=== PATIENT | female | born 1945 | race Caucasian/White ===

== ENCOUNTER 2020-02-02 08:59 | Outpatient (REF) | payer MEDICARE, SELFPAY ==
[2020-02-02 10:17] LABS: MANUAL DIFF FLAG NO
[2020-02-02 10:33] LABS: Hematocrit 42.2 % (37-47); Hemoglobin 13.5 g/dl (12.0-16.0); Imm Gran Abs Auto 0.03 X10*3/uL (0.00-0.03); Imm Gran Pct Auto 0.4 % (0.0-0.4); Lymphocytes Absolute Auto 2.5 X10*3/uL (1.2-4.9); Lymphocytes Percent Auto 35.8 % (20-40); Mean Corpuscular Hemoglobin 28.3 pg (27.0-33.0); Mean Corpuscular Volume 88.5 fL (80-98); Mean Platelet Volume 11.5 fL (9.4-12.3); Monocytes Absolute Auto 0.7 X10*3/uL (0.1-1.2); Monocytes Percent Auto 9.5 % (2-11); Neutrophils Absolute Auto 3.8 X10*3/uL (2.0-8.3); Neutrophils Percent Auto 54.3 % (45-73); Platelet Count 200 X10*3/uL (160-400); Red Blood Count 4.77 X10*6/uL (4.20-5.50); Red Cell Distribution Width 12.8 % (11.0-16.0)
[2020-02-02 11:03] LABS: Alanine Aminotransferase 32 U/L (0-31); Albumin Level 4.2 g/dL (3.5-5.0); Alkaline Phosphatase 78 U/L (39-117); Anion Gap 12 (12-20); Aspartate Amino Transferase 22 U/L (5-31); Bilirubin Total 0.3 mg/dL (0.0-1.0); Blood Urea Nitrogen 15 mg/dL (9-16); Calcium 9.2 mg/dL (8.4-10.2); Carbon Dioxide 28 mmol/L (22-29); Chloride 103 mmol/L (96-108); Cholesterol 217 mg/dL; Estimated Glomerular Filt Rate > 60; Glucose Fasting 141 mg/dL (60-99); HDL Cholesterol 43 mg/dL; LDL Cholesterol Calculated 132 mg/dl; Potassium 4.2 mmol/l (3.3-5.1); Sodium 139 mmol/L (135-145); Total Protein 6.8 g/dL (6.5-8.0); Triglycerides 210 mg/dL
[2020-02-02 11:24] LABS: Folate 11.9 ng/mL (> or = 4.0); Vitamin B12 912 pg/mL (200-900)
== END 2020-02-02 09:00 | disposition home or self-care (01) ==
LOC: HO.LAB 08:59
PROVIDERS: PCP Internal Medicine; Visit Provider Internal Medicine
DX: E53.8 Deficiency of other specified B group vitamins (principal); E11.9 Type 2 diabetes mellitus without complications; E78.00 Pure hypercholesterolemia, unspecified
CPT/HCPCS: 36415; 80053; 80061; 82607; 82746; 85025

== ENCOUNTER → 2020-06-06 10:51 | Outpatient (BNVA) | payer MEDICARE, SELFPAY | PROVIDERS: PCP Internal Medicine; Visit Provider Anesthesiology | DX: M47.816 Spondylosis without myelopathy or radiculopathy, lumbar region (principal); M54.5 Low back pain | CPT/HCPCS: Q3014 ==

== ENCOUNTER 2020-06-13 10:44 | Outpatient (REF) | payer MEDICARE, SELFPAY ==
--- NOTE | ~2020-06-13 | XR_ITS ---
EXAMINATION: XR KNEE LT 3V, XR LUMBAR SPINE 2-3 V, XR HIP LT MIN 2V, XR FOOT LT MIN 3V CLINICAL INFORMATION: Pain in left knee. Pain in left hip. Pain in left foot. Low back pain COMPARISON: 11/30/2018. 09/29/2018 TECHNIQUE: AP, lateral, and oblique views of the left foot. AP and frog-leg lateral views of the left hip. AP, lateral, and sunrise views left knee. AP, lateral, and coned-down lateral views of the lumbar spine. FINDINGS: There is convex right lumbar scoliosis with apex at T12-L1. Normal sagittal alignment. There is multilevel degenerative disc disease with endplate sclerosis and anterior osteophytosis at several levels in the lower thoracic spine, most notable at L4-L5 in the lumbar spine. There is lower lumbar facet arthropathy severe at L4-L5 and L5-S1. No compression fracture seen. No left hip or pelvic fracture seen. There are well-corticated ossific densities adjacent the left greater trochanter which may reflect calcific tendinitis/bursitis. Left hip joint space maintained. There is medial and lateral compartment chondrocalcinosis of the left knee. Mild medial compartment joint space narrowing. No fracture, dislocation, or joint effusion. Mild lateral patellar osteophytosis. Mild hallux valgus of the left foot. Large plantar calcaneal osteophyte is present. No fracture or dislocation. XR/XR knee LT 3V IMPRESSION: No acute osseous abnormality of the lumbar spine, left hip, left knee, or left foot. Degenerative changes as described above.
--- NOTE | ~2020-06-13 | XR_ITS ---
EXAMINATION: XR KNEE LT 3V, XR LUMBAR SPINE 2-3 V, XR HIP LT MIN 2V, XR FOOT LT MIN 3V CLINICAL INFORMATION: Pain in left knee. Pain in left hip. Pain in left foot. Low back pain COMPARISON: 11/30/2018. 09/29/2018 TECHNIQUE: AP, lateral, and oblique views of the left foot. AP and frog-leg lateral views of the left hip. AP, lateral, and sunrise views left knee. AP, lateral, and coned-down lateral views of the lumbar spine. FINDINGS: There is convex right lumbar scoliosis with apex at T12-L1. Normal sagittal alignment. There is multilevel degenerative disc disease with endplate sclerosis and anterior osteophytosis at several levels in the lower thoracic spine, most notable at L4-L5 in the lumbar spine. There is lower lumbar facet arthropathy severe at L4-L5 and L5-S1. No compression fracture seen. No left hip or pelvic fracture seen. There are well-corticated ossific densities adjacent the left greater trochanter which may reflect calcific tendinitis/bursitis. Left hip joint space maintained. There is medial and lateral compartment chondrocalcinosis of the left knee. Mild medial compartment joint space narrowing. No fracture, dislocation, or joint effusion. Mild lateral patellar osteophytosis. Mild hallux valgus of the left foot. Large plantar calcaneal osteophyte is present. No fracture or dislocation. XR/XR foot LT min 3V IMPRESSION: No acute osseous abnormality of the lumbar spine, left hip, left knee, or left foot. Degenerative changes as described above.
--- NOTE | ~2020-06-13 | XR_ITS ---
EXAMINATION: XR KNEE LT 3V, XR LUMBAR SPINE 2-3 V, XR HIP LT MIN 2V, XR FOOT LT MIN 3V CLINICAL INFORMATION: Pain in left knee. Pain in left hip. Pain in left foot. Low back pain COMPARISON: 11/30/2018. 09/29/2018 TECHNIQUE: AP, lateral, and oblique views of the left foot. AP and frog-leg lateral views of the left hip. AP, lateral, and sunrise views left knee. AP, lateral, and coned-down lateral views of the lumbar spine. FINDINGS: There is convex right lumbar scoliosis with apex at T12-L1. Normal sagittal alignment. There is multilevel degenerative disc disease with endplate sclerosis and anterior osteophytosis at several levels in the lower thoracic spine, most notable at L4-L5 in the lumbar spine. There is lower lumbar facet arthropathy severe at L4-L5 and L5-S1. No compression fracture seen. No left hip or pelvic fracture seen. There are well-corticated ossific densities adjacent the left greater trochanter which may reflect calcific tendinitis/bursitis. Left hip joint space maintained. There is medial and lateral compartment chondrocalcinosis of the left knee. Mild medial compartment joint space narrowing. No fracture, dislocation, or joint effusion. Mild lateral patellar osteophytosis. Mild hallux valgus of the left foot. Large plantar calcaneal osteophyte is present. No fracture or dislocation. XR/XR hip LT min 2V IMPRESSION: No acute osseous abnormality of the lumbar spine, left hip, left knee, or left foot. Degenerative changes as described above.
--- NOTE | ~2020-06-13 | XR_ITS ---
EXAMINATION: XR KNEE LT 3V, XR LUMBAR SPINE 2-3 V, XR HIP LT MIN 2V, XR FOOT LT MIN 3V CLINICAL INFORMATION: Pain in left knee. Pain in left hip. Pain in left foot. Low back pain COMPARISON: 11/30/2018. 09/29/2018 TECHNIQUE: AP, lateral, and oblique views of the left foot. AP and frog-leg lateral views of the left hip. AP, lateral, and sunrise views left knee. AP, lateral, and coned-down lateral views of the lumbar spine. FINDINGS: There is convex right lumbar scoliosis with apex at T12-L1. Normal sagittal alignment. There is multilevel degenerative disc disease with endplate sclerosis and anterior osteophytosis at several levels in the lower thoracic spine, most notable at L4-L5 in the lumbar spine. There is lower lumbar facet arthropathy severe at L4-L5 and L5-S1. No compression fracture seen. No left hip or pelvic fracture seen. There are well-corticated ossific densities adjacent the left greater trochanter which may reflect calcific tendinitis/bursitis. Left hip joint space maintained. There is medial and lateral compartment chondrocalcinosis of the left knee. Mild medial compartment joint space narrowing. No fracture, dislocation, or joint effusion. Mild lateral patellar osteophytosis. Mild hallux valgus of the left foot. Large plantar calcaneal osteophyte is present. No fracture or dislocation. XR/XR lumbar spine 2-3V IMPRESSION: No acute osseous abnormality of the lumbar spine, left hip, left knee, or left foot. Degenerative changes as described above.
[2020-06-13 12:26] LABS: Creatinine Urine 114.76 mg/dL; Microalbum/Creatinine Ratio Ur 103.6 ug/mg cr
[2020-06-13 12:30] LABS: Alanine Aminotransferase 56 U/L (0-31); Albumin Level 4.6 g/dL (3.5-5.0); Alkaline Phosphatase 89 U/L (39-117); Anion Gap 15 (12-20); Aspartate Amino Transferase 28 U/L (5-31); Bilirubin Total 0.4 mg/dL (0.0-1.0); Blood Urea Nitrogen 15 mg/dL (9-16); Calcium 9.8 mg/dL (8.4-10.2); Carbon Dioxide 26 mmol/L (22-29); Chloride 102 mmol/L (96-108); Cholesterol 220 mg/dL; Estimated Glomerular Filt Rate > 60; Glucose Fasting 214 mg/dL (60-99); HDL Cholesterol 45 mg/dL; LDL Cholesterol Calculated 134 mg/dl; Potassium 4.5 mmol/L (3.3-5.1); Sodium 138 mmol/L (135-145); Total Protein 7.3 g/dL (6.5-8.0); Triglycerides 208 mg/dL
[2020-06-18 15:07] LABS: Vitamin D 25-OH, D2 5 ng/mL; Vitamin D 25-OH, D3 36 ng/mL; Vitamin D 25-OH, Total 41 ng/mL (30-100)
== END 2020-06-13 10:45 | disposition home or self-care (01) ==
LOC: HO.LAB 10:44
PROVIDERS: PCP Internal Medicine; Visit Provider Internal Medicine
DX: E11.9 Type 2 diabetes mellitus without complications (principal); E78.5 Hyperlipidemia, unspecified; E55.9 Vitamin D deficiency, unspecified; M25.562 Pain in left knee; M54.5 Low back pain; M25.552 Pain in left hip; M79.672 Pain in left foot
CPT/HCPCS: 36415; 72100; 73502; 73562; 73630; 80053; 80061; 82043; 82306

== ENCOUNTER → 2020-06-25 12:03 | Outpatient (BNVA) | payer MEDICARE, SELFPAY | PROVIDERS: PCP Internal Medicine; Visit Provider Orthopaedic Surgery | DX: Z13.89 Encounter for screening for other disorder (principal) | CPT/HCPCS: 99212 ==

== ENCOUNTER 2020-07-02 09:25 | Outpatient (REF) | payer OTHER, SELFPAY ==
[2020-07-02 16:57] LABS: CT PCR NOT DETECTED (Not Detect.); NG PCR NOT DETECTED (Not Detect.)
[2020-07-03 09:04] LABS: BV Int Neg Control Negative (Negative); BV Int Pos Control Positive (Positive)
== END 2020-07-02 09:26 | disposition home or self-care (01) ==
LOC: HO.LAB 09:25
PROVIDERS: PCP Internal Medicine; Visit Provider Obstetrics & Gynecology
DX: N89.8 Other specified noninflammatory disorders of vagina (principal); R10.2 Pelvic and perineal pain
CPT/HCPCS: 87480; 87491; 87510; 87591; 87660; 99212

== ENCOUNTER 2020-08-07 12:00 | Outpatient (RCR) | payer OTHER, SELFPAY ==
--- NOTE | 2020-07-17 18:10 | MHC.PT.EP ---
[facility] [place] Office [place] Office [place] Office [address] Patt Zavala [address] [phone] F: [phone] F: [phone] F: [phone] F: [phone] Physical Therapy Plan of Care Date of Evaluation: 07/17/20 Date of Surgery: N/A Diagnosis: unsteadiness on feet Assessment: pt demonstrates within functional limits lower extremity strength and static balance scores. She is at the cut-off for her age and sex in regards to her sit to stand testing. pt's reported dizziness does not sound consistent w/ BPPV. She was most challenged with eyes closed and standing on foam conditions for static balance indicating impaired proprioception and potential vestibular hypofunctioning. pt presents to physical therapy with pain, decreased strength, impaired functional mobility, impaired cardiorespiratory endurance, impaired postural awareness, and gait deviations. pt is a good candidate for skilled PT due to age, potential remediation of impairments, typical disease/condition progression and prognosis, comorbidities, and motivation. pt would benefit from tailored strengthening and stretching exercise program, functional training, gait training, postural re-training, neuromuscular re-education, modalities as needed for pain, equipment safety demonstration. Frequency and Duration: The patient will be seen 2x/wk for 5 wks Short Term Goals: pt will be I w/ HEP to promote self-management of condition. pt will improve R quad strength by 1 MMT grade to promote ease in ascending/descending stairs to access mailbox. Mcc Goals: pt will improve 5xSTS score by 2.3 seconds to reach MCID and reduce fall risk. pt will report a statistically significant improvement in self-reported outcome measure, LEFI, to reduce caregiver burden and promote pt independence. Treatment Plan: Modalities to reduce pain, spasms and effusion. Manual therapy to restore motion and function. Therapeutic exercise to improve strength and flexibility. Neuromuscular re-education for posture and balance. Therapeutic activities to return to functional activities of daily living. Electronically signed by: Namrata Kamara PT, DPT Please sign and return to therapist. Thank you for your referral.
--- NOTE | 2020-08-13 13:53 | MHC.PT.DC ---
[facility] [place] Office [place] Office [place] Office [address] Patt Zavala 140 [facility] [phone] F: [phone] F: [phone] F: [phone] F: [phone] Physical Therapy Discharge Report Diagnosis: unsteadiness on feet Date of Surgery: N/A Date of Evaluation: 07/17/20 Date of Discharge: 08/13/20 Treatments to Date: 2 Cancellations to Date: 3 No Shows to Date: 1 Discharge Status: Patient Elected to Stop Discharge Summary: The patient's daughter called to discharge the patient from physical therapy as she states she is too much pain after her therapy visits. She has only attended two visits since her initial evaluation. She would inconsistently report which part of her body was painful and was not motivated to participate. She is discharged from this physical therapy plan of care at this time per her request. Electronically signed by: Namrata Kamara PT, DPT Please sign and return to therapist. Thank you for your referral.
== END 2020-08-13 13:54 | disposition other institution (70) ==
LOC: HO.PT 12:00
PROVIDERS: PCP Internal Medicine; Visit Provider Internal Medicine
DX: R26.81 Unsteadiness on feet (principal)
CPT/HCPCS: 97110; 97162; 97530

== ENCOUNTER 2020-08-11 10:01 | Outpatient (REF) | payer OTHER, SELFPAY ==
[2020-08-11 11:07] LABS: MANUAL DIFF FLAG NO
[2020-08-11 11:14] LABS: Basophils Percent Auto 0.3 % (0-2); Hematocrit 45.5 % (37-47); Hemoglobin 14.9 g/dl (12.0-16.0); Imm Gran Abs Auto 0.01 X10*3/uL (0.00-0.03); Imm Gran Pct Auto 0.1 % (0.0-0.4); Lymphocytes Absolute Auto 2.6 X10*3/uL (1.2-4.9); Lymphocytes Percent Auto 34.6 % (20-40); Mean Corpuscular HGB Conc 32.7 g/dl (31.0-35.0); Mean Corpuscular Hemoglobin 28.3 pg (27.0-33.0); Mean Corpuscular Volume 86.3 fL (80-98); Monocytes Absolute Auto 0.6 X10*3/uL (0.1-1.2); Monocytes Percent Auto 7.3 % (2-11); Neutrophils Absolute Auto 4.4 X10*3/uL (2.0-8.3); Neutrophils Percent Auto 57.7 % (45-73); Platelet Count 160 X10*3/uL (160-400); Red Blood Count 5.27 X10*6/uL (4.20-5.50); Red Cell Distribution Width 12.3 % (11.0-16.0); White Blood Count 7.6 X10*3/uL (4.8-10.8)
[2020-08-11 11:17] LABS: Glucose Urine UA 250 MG/DL (NEG); Leukocyte Esterase Urine 2+ (NEG); Nitrite Urine NEG (NEG); PH 5.5 (5.0-8.0); Specific Gravity - Urine >= 1.030 (1.005-1.025); UACC Culture Trigger YES; Urine Blood TRACE (NEG); Urine Ketones NEG (NEG); Urine Protein TRACE MG/DL (NEG-TRACE)
[2020-08-11 11:26] LABS: Appearance Urine HAZY; Color Urine YELLOW
[2020-08-11 11:28] LABS: RBC Urine 0-2 /HPF (0); UACC CULT YES
[2020-08-11 11:29] LABS: Bacteria Urine 2+ /LPF; Mucus Urine 1+ /LPF; Squamous Epithelial Cell Urine 2+ /LPF
[2020-08-11 11:56] LABS: Albumin Level 4.3 g/dL (3.5-5.0); Magnesium 1.8 mg/dL (1.6-2.6)
[2020-08-11 11:57] LABS: Creatinine Urine 142.78 mg/dL; Protein/Creatinine Ratio, Ur 0.22 (<0.2); Total Protein Urine Random 32 mg/dL (<12)
[2020-08-11 11:58] LABS: Alanine Aminotransferase 56 U/L (0-31); Albumin Level 4.3 g/dL (3.5-5.0); Alkaline Phosphatase 89 U/L (39-117); Anion Gap 16 (12-20); Aspartate Amino Transferase 32 U/L (5-31); Bilirubin Total 0.6 mg/dL (0.0-1.0); Blood Urea Nitrogen 18 mg/dL (9-16); Calcium 9.7 mg/dL (8.4-10.2); Carbon Dioxide 25 mmol/L (22-29); Chloride 100 mmol/L (96-108); Cholesterol 211 mg/dL; Creatinine Urine 141.73 mg/dL; Estimated Glomerular Filt Rate > 60; Glucose Fasting 258 mg/dL (60-99); HDL Cholesterol 45 mg/dL; LDL Cholesterol Calculated 133 mg/dl; Microalbum/Creatinine Ratio Ur 72.6 ug/mg cr; Potassium 4.4 mmol/L (3.3-5.1); Sodium 137 mmol/L (135-145); Total Protein 7.1 g/dL (6.5-8.0); Triglycerides 167 mg/dL
[2020-08-11 12:55] LABS: Renal w Reflex Lab Use Only Order verified
[2020-08-14 13:17] LABS: Calcium (PTHI) 9.4 mg/dL (8.6-10.4); PTHI 33 pg/mL (14-64)
[2020-08-15 11:43] LABS: Vitamin D 25-OH, D2 4 ng/mL; Vitamin D 25-OH, D3 34 ng/mL; Vitamin D 25-OH, Total 38 ng/mL (30-100)
== END 2020-08-11 10:02 | disposition home or self-care (01) ==
LOC: HO.LAB 10:01
PROVIDERS: PCP Internal Medicine; Visit Provider Internal Medicine Nephrology
DX: I10 Essential (primary) hypertension (principal); N20.0 Calculus of kidney; E11.9 Type 2 diabetes mellitus without complications; E78.5 Hyperlipidemia, unspecified; E55.9 Vitamin D deficiency, unspecified
CPT/HCPCS: 36415; 80053; 80061; 81001; 82040; 82043; 82306; 83735; 83970; 84156; 85025; 87086

== ENCOUNTER → 2020-11-30 09:23 | Outpatient (REF) | payer MEDICARE, SELFPAY ==
--- NOTE | 2020-11-30 09:32 | ECG_ITS ---
Test Reason : HTN Blood Pressure : / mmHG Vent. 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
[2020-11-30 10:46] LABS: Alanine Aminotransferase 50 U/L (0-31); Albumin Level 4.3 g/dL (3.5-5.0); Alkaline Phosphatase 84 U/L (39-117); Anion Gap 11 (12-20); Aspartate Amino Transferase 28 U/L (5-31); Bilirubin Total 0.5 mg/dL (0.0-1.0); Blood Urea Nitrogen 14 mg/dL (9-16); Calcium 9.4 mg/dL (8.4-10.2); Carbon Dioxide 27 mmol/L (22-29); Chloride 105 mmol/L (96-108); Cholesterol 174 mg/dL; Estimated Glomerular Filt Rate > 60; Glucose Fasting 213 mg/dL (60-99); HDL Cholesterol 42 mg/dL; LDL Cholesterol Calculated 104 mg/dl; Potassium 4.3 mmol/L (3.3-5.1); Sodium 139 mmol/L (135-145); Total Protein 6.9 g/dL (6.5-8.0); Triglycerides 144 mg/dL
[2020-12-01 15:37] LABS: Vitamin B12 743 pg/mL (200-900)
[2020-12-05 15:56] LABS: Vitamin D 25-OH, D2 5 ng/mL; Vitamin D 25-OH, D3 29 ng/mL; Vitamin D 25-OH, Total 34 ng/mL (30-100)
== END ==
LOC: HO.CARD 09:23
PROVIDERS: PCP Internal Medicine; Visit Provider Internal Medicine
DX: E55.9 Vitamin D deficiency, unspecified (principal); I10 Essential (primary) hypertension; E53.8 Deficiency of other specified B group vitamins; E11.9 Type 2 diabetes mellitus without complications; E78.00 Pure hypercholesterolemia, unspecified
CPT/HCPCS: 36415; 80053; 80061; 82306; 82607; 82746; 93005

== ENCOUNTER 2020-12-17 13:40 | Outpatient (REF) | payer MEDICARE, SELFPAY ==
--- NOTE | ~2020-12-17 | XR_ITS ---
EXAMINATION: XR KNEE, RIGHT XR FOOT, LEFT CLINICAL INFORMATION: Right knee pain. Left foot pain. COMPARISON: Right knee radiographs dated 09/06/2015. Left foot radiographs dated 06/13/2020. TECHNIQUE: AP, tunnel, lateral, and sunrise views of the right knee. AP, oblique, and lateral views of the left foot. FINDINGS: RIGHT KNEE: Mild medial compartment joint space narrowing. Small tricompartmental marginal osteophytes. Patellofemoral subchondral cystic change. No acute fracture or dislocation. No abnormal soft tissue calcification. No significant joint effusion. LEFT FOOT: Joint space narrowing with subchondral sclerosis and marginal osteophytes redemonstrated at the 1st metatarsophalangeal joint and hallux sesamoids. Corticated ossification adjacent to the 5th proximal phalangeal head, consistent with a remote fracture versus accessory ossicle. No acute fracture or dislocation. Plantar and dorsal calcaneal spurs, unchanged. XR/XR foot LT min 3V IMPRESSION: RIGHT KNEE: [id number] medial as well as mild patellofemoral and lateral compartment osteoarthritic, slightly progressed. LEFT FOOT: Moderate degenerative arthritis redemonstrated at the 1st metatarsophalangeal joint and hallux sesamoids. No acute osseous abnormality.
--- NOTE | ~2020-12-17 | XR_ITS ---
EXAMINATION: XR KNEE, RIGHT XR FOOT, LEFT CLINICAL INFORMATION: Right knee pain. Left foot pain. COMPARISON: Right knee radiographs dated 09/06/2015. Left foot radiographs dated 06/13/2020. TECHNIQUE: AP, tunnel, lateral, and sunrise views of the right knee. AP, oblique, and lateral views of the left foot. FINDINGS: RIGHT KNEE: Mild medial compartment joint space narrowing. Small tricompartmental marginal osteophytes. Patellofemoral subchondral cystic change. No acute fracture or dislocation. No abnormal soft tissue calcification. No significant joint effusion. LEFT FOOT: Joint space narrowing with subchondral sclerosis and marginal osteophytes redemonstrated at the 1st metatarsophalangeal joint and hallux sesamoids. Corticated ossification adjacent to the 5th proximal phalangeal head, consistent with a remote fracture versus accessory ossicle. No acute fracture or dislocation. Plantar and dorsal calcaneal spurs, unchanged. XR/XR knee RT 4V IMPRESSION: RIGHT KNEE: [id number] medial as well as mild patellofemoral and lateral compartment osteoarthritic, slightly progressed. LEFT FOOT: Moderate degenerative arthritis redemonstrated at the 1st metatarsophalangeal joint and hallux sesamoids. No acute osseous abnormality.
== END 2020-12-17 13:41 | disposition home or self-care (01) ==
LOC: HO.XRAY 13:40
PROVIDERS: PCP Internal Medicine; Visit Provider Emergency Medicine
DX: M25.561 Pain in right knee (principal); M79.672 Pain in left foot
CPT/HCPCS: 73564; 73630

== ENCOUNTER → 2021-09-04 15:12 | Outpatient (BNVA) | payer MEDICARE, SELFPAY | PROVIDERS: PCP Internal Medicine; Visit Provider Obstetrics & Gynecology | DX: Z78.0 Asymptomatic menopausal state (principal) ==

== ENCOUNTER 2021-09-12 12:39 | Outpatient (REF) | payer OTHER, SELFPAY ==
--- NOTE | ~2021-09-12 | MM_ITS ---
EXAMINATION: BONE DENSITOMETRY CLINICAL INDICATION: Menopause. COMPARISON: Previous BD dated 11/28/2016 and baseline BD dated 03/07/2003. TECHNIQUE: Using a [employer]ook DXA System (software version: 13.1) manufactured by [employer], dual-energy x-ray absorptiometry was performed of the lumbar spine and left hip. The images are of good technical quality. Summary results are attached. FINDINGS: AP SPINE L2-L4 (excluding L1): The data of L1-L4 has been changed to exclude the L1 vertebral body, because at this level may cause overestimation of lumbar spine density. Current: BMD 1.010 g/cm2, Z-score 0.2, T-score -1.6, osteopenia, 4.2% decrease from previous, 13.9% decrease from baseline (<5% change is not significant). Prior: BMD 1.054 g/cm2. Baseline: BMD 1.173 g/cm2. LEFT FEMUR, NECK: Current: BMD 0.765 g/cm2, Z-score 0.0, T-score -2.0, osteopenia. Prior: BMD 0.764 g/cm2. Baseline 08/10/2009: BMD 0.883 g/cm2. LEFT FEMUR, TOTAL: Current: BMD 0.824 g/cm2, Z-score 0.3, T-score -1.5, osteopenia, 3.1% decrease from previous, 15.3% decrease from baseline (<5% change is not significant). Prior: BMD 0.850 g/cm2. Baseline 08/10/2009: BMD 0.973 g/cm2. IDENTIFIED RISK FACTORS: Menopause, history of fracture (adult). HISTORY OF FRACTURE: Shoulder. MEDICATIONS: Calcium, vitamin D. MM/XR DEXA axial skeleton IMPRESSION: 1. DIAGNOSIS: Osteopenia based on the lowest T-score value of -2.0 in the femoral neck applying World Health Organization criteria. 2. 10-YEAR FRACTURE RISK PREDICTION, FRAX: Major osteoporotic fracture (clinical spine, forearm, hip or shoulder) 11.4%. Hip fracture 2.6%. 3. Treatment Recommendations: NOF guidelines recommend consideration for treatment in postmenopausal women and men age 50 and older presenting with the following: -A hip or vertebral (clinical or morphometric) fracture. -T-score less than or equal to -2.5 at the femoral neck or spine after appropriate evaluation to exclude secondary causes. -Low bone mass at the hip or spine and a 10-year fracture probability by FRAX of greater than or equal to 3% for hip fracture or greater than or equal to 20% for major osteoporotic fracture based on the [place] adapted WHO algorithm. 4. Other Recommendations: All treatment decisions require clinical judgment and consideration of individual patient factors, including patient preferences, comorbidities, previous drug use, risk factors not captured in the FRAX model (e.g. frailty, falls, vitamin D deficiency, increased bone turnover, interval significant decline in bone density) and possible under or overestimation of fracture risk by FRAX. Additional medical evaluation for secondary cause of low bone mineral density may be appropriate. FUTURE SCAN RECOMMENDATION: People with diagnosed cases of osteoporosis or at high risk for fracture should have regular bone mineral density tests. For patients eligible for Medicare, routine testing is allowed once every 2 years. The testing frequency can be increased to one year for patients who have rapidly progressing disease, those who are receiving or discontinuing medical therapy to restore bone mass, or have additional risk factors.
--- NOTE | ~2021-09-12 | MM_ITS ---
EXAMINATION: MM SCREENING DIGITAL BREAST TOMOSYNTHESIS, BILATERAL CLINICAL INFORMATION: Screening. Asymptomatic. The lifetime risk of breast cancer based on the Tyrer-Cuzick Model is 3.6%. COMPARISON: Mammography: None TECHNIQUE: Digital breast tomosynthesis is performed in both the craniocaudal and mediolateral oblique views along with computer-aided detection (CAD). Synthesized 2D images are generated from the tomosynthesis. FINDINGS: There are scattered areas of fibroglandular density (ACR BI-RADS breast composition Category b). There are no significant masses, abnormal calcifications, or other abnormalities. MM/MM tomosynthesis screening BI IMPRESSION: No mammographic evidence of malignancy. ASSESSMENT: BI-RADS 1: Negative RECOMMENDATION: Routine annual mammography screening. This patient's information was entered into a reminder system with a target due date for their next mammogram.
== END 2021-09-12 12:40 | disposition home or self-care (01) ==
LOC: HO.MAMMO 12:39
PROVIDERS: PCP Internal Medicine; Visit Provider Obstetrics & Gynecology
DX: Z13.820 Encounter for screening for osteoporosis (principal); Z12.31 Encounter for screening mammogram for malignant neoplasm of breast; Z78.0 Asymptomatic menopausal state; M85.80 Other specified disorders of bone density and structure, unspecified site
CPT/HCPCS: 77063; 77067; 77080

== ENCOUNTER 2021-11-08 11:11 | Outpatient (REF) | payer OTHER, SELFPAY ==
--- NOTE | ~2021-11-08 | US_ITS ---
EXAMINATION: US VENOUS ULTRASOUND WITH DOPPLER LOWER EXTREMITY, LEFT CLINICAL INFORMATION: Left leg pain and edema. COMPARISON: None TECHNIQUE: Ultrasound of the deep veins is performed from the hip to the calf with compression sonography and color and pulse Doppler assessment. Spectral analysis with color-flow imaging is performed. FINDINGS: There is normal venous compression and respiratory variation and augmented flow. The visualized common femoral vein, superficial femoral vein, profunda femoral vein, popliteal vein, and the trifurcation region shows no evidence of deep venous thrombosis. A left popliteal cyst measures 2.4 x 0.7 x 1.6 cm. Mild subcutaneous edema overlying the left popliteal fossa and calf. If the patient's symptoms persist, followup ultrasound in 5 days 7 days might be of value to exclude proximal propagation from a non-visualized calf vein. US/US venous duplex LE IMPRESSION: 1. No evidence for deep venous thrombosis in the visualized veins of the left lower extremity. 2. Left popliteal cyst as detailed above. 3. Mild subcutaneous edema.
== END 2021-11-08 11:12 | disposition home or self-care (01) ==
LOC: HO.HMGCX 11:11
PROVIDERS: Visit Provider Physician Assistant Medical
DX: M79.662 Pain in left lower leg (principal); M25.469 Effusion, unspecified knee; R60.9 Edema, unspecified
CPT/HCPCS: 93971

== ENCOUNTER 2021-11-08 14:07 | Outpatient (REF) | payer OTHER, SELFPAY ==
--- NOTE | ~2021-11-08 | CT_ITS ---
EXAMINATION: CT HEAD WITHOUT CONTRAST CLINICAL INFORMATION: Other general symptoms and signs. COMPARISON: CT head noncontrast 08/26/2012. TECHNIQUE: Contiguous axial imaging was performed from the skull base to vertex without intravenous administration of contrast. Additional 2-D coronal and sagittal reformatted images are generated on the CT workstation and uploaded to PACS. This CT examination was performed using dose optimization techniques as appropriate, variously including the following: *Automated exposure control *Adjustment of mA and/or kV according to patient size (this includes techniques or standardized protocols for targeted exams where dose is matched to indication/reason for exam; i.e. extremities or head) *Use of iterative reconstruction technique DLP: 664 mGy-cm FINDINGS: There is no intracranial hemorrhage, hematoma, or extra-axial fluid collection. There are mild atrophic changes with mild fullness of the ventricles, mild prominence of cortical sulci and fissures and cisterns. No hydrocephalus, edema, or mass effect. The preston-white matter differentiation appears well preserved . Again, there are 2 small subcentimeter anterior falx lipomas also seen on prior exam 2013. There is a prominent inferior left basal ganglia Virchow-Isaac space approximately 0.8 cm, similar to prior CT 2013. Again, there are mild bilateral basal ganglia calcifications. There is some periventricular white matter gliosis consistent with chronic small vessel ischemic changes near the right ventricular atrium. The orbits are unremarkable. There is no visible acute territorial infarct or mass lesion. The calvarium appears intact. There is no pneumocephalus or orbital emphysema. The visualized sinuses and middle ears and mastoid air cells show no significant mucosal thickening. There are no air-fluid levels. CT/CT head/brain wo con IMPRESSION: No acute intracranial abnormality. Mild atrophic changes.
== END 2021-11-08 14:08 | disposition home or self-care (01) ==
LOC: HO.CT 14:07
PROVIDERS: PCP Nurse Practitioner Family; Visit Provider Nurse Practitioner Family
DX: R68.89 Other general symptoms and signs (principal)
CPT/HCPCS: 70450

== ENCOUNTER 2021-11-09 13:48 | Emergency (ER) | payer OTHER, SELFPAY ==
[2021-11-09 14:54] VITALS: BP 168/69; PULSE 94; RESP 16; TEMP 36; O2SAT 96; BMI 31.3
== END 2021-11-09 22:37 | disposition left against medical advice (07) ==
LOC: HO.ED 22:38
PROVIDERS: Emergency Provider Emergency Medicine; PCP Internal Medicine
DX: R42 Dizziness and giddiness (principal); S79.912A Unspecified injury of left hip, initial encounter; W19.XXXA Unspecified fall, initial encounter; Y93.9 Activity, unspecified; Y92.9 Unspecified place or not applicable; Y99.9 Unspecified external cause status; E11.9 Type 2 diabetes mellitus without complications; I10 Essential (primary) hypertension
CPT/HCPCS: 99283

== ENCOUNTER 2021-11-11 11:47 | Outpatient (REF) | payer OTHER, SELFPAY ==
--- NOTE | ~2021-11-11 | XR_ITS ---
EXAMINATION: XR KNEE, LEFT CLINICAL INFORMATION: Left knee pain COMPARISON: 06/13/2020 TECHNIQUE: Four views of the left knee. FINDINGS: Meniscal chondrocalcinosis. Small joint effusion. Mild patellofemoral compartment osteoarthritis. No fracture or bone lesion. XR/XR knee LT 4V IMPRESSION: No acute osseous abnormality. Mild patellofemoral compartment osteoarthritis with a small joint effusion. Meniscal chondrocalcinosis. No significant change.
== END 2021-11-11 11:48 | disposition home or self-care (01) ==
LOC: HO.HMGCX 11:47
PROVIDERS: Visit Provider Physician Assistant
DX: M25.562 Pain in left knee (principal)
CPT/HCPCS: 73564

== ENCOUNTER 2021-11-27 13:10 | Outpatient (REF) | payer OTHER, SELFPAY ==
[2021-11-28 02:55] LABS: CT PCR NOT DETECTED (Not Detect.); NG PCR NOT DETECTED (Not Detect.)
[2021-11-28 13:02] LABS: BV Int Neg Control Negative (Negative); BV Int Pos Control Positive (Positive)
== END 2021-11-27 13:11 | disposition home or self-care (01) ==
LOC: HO.LAB 13:10
PROVIDERS: Visit Provider Obstetrics & Gynecology
DX: E11.9 Type 2 diabetes mellitus without complications (principal); M85.80 Other specified disorders of bone density and structure, unspecified site; Z78.0 Asymptomatic menopausal state; Z11.3 Encounter for screening for infections with a predominantly sexual mode of transmission; Z11.8 Encounter for screening for other infectious and parasitic diseases; Z11.4 Encounter for screening for human immunodeficiency virus [HIV]; Z11.59 Encounter for screening for other viral diseases; Z13.29 Encounter for screening for other suspected endocrine disorder
CPT/HCPCS: 87480; 87491; 87510; 87591; 87660; 99212

== ENCOUNTER 2021-11-27 13:23 | Outpatient (REF) | payer OTHER, SELFPAY ==
[2021-11-27 14:50] LABS: Free T4 (Free Thyroxine) 0.84 ng/dL (0.71-1.85); Thyroid Stimulating Hormone 0.72 uIU/mL (0.32-4.0)
[2021-11-27 14:55] LABS: Syphilis Screen Nonreactive (Nonreactive)
[2021-11-27 15:03] LABS: Creatinine Urine 208.72 mg/dL; Microalbum/Creatinine Ratio Ur 166.2 ug/mg cr
[2021-11-28 07:54] LABS: HBsAGNum1 0.41 S/CO (0.00-0.99); HIV AB/AG Nonreactive (Nonreactive); HIV Num 1 0.07 S/CO (0.00-0.99); Hepatitis B Surface Antigen Negative (Negative); ~HepC Num1 0.07 S/CO (0.00-0.79); ~Hepatitis C Antibody Nonreactive (Nonreactive)
== END 2021-11-27 13:24 | disposition home or self-care (01) ==
LOC: HO.LAB 13:23
PROVIDERS: Internal Medicine Endocrinology, Diabetes & Metabolism; PCP Internal Medicine; Visit Provider Obstetrics & Gynecology
DX: E11.9 Type 2 diabetes mellitus without complications (principal); M85.80 Other specified disorders of bone density and structure, unspecified site; Z78.0 Asymptomatic menopausal state; Z11.3 Encounter for screening for infections with a predominantly sexual mode of transmission; Z11.4 Encounter for screening for human immunodeficiency virus [HIV]; Z11.59 Encounter for screening for other viral diseases; Z13.29 Encounter for screening for other suspected endocrine disorder
CPT/HCPCS: 36415; 82043; 84439; 84443; 86780; 86803; 87340; 87389

== ENCOUNTER 2021-12-02 18:08 | Emergency (ER) | payer OTHER, SELFPAY ==
--- NOTE | ~2021-12-02 | US_ITS ---
EXAMINATION: US VENOUS WITH DOPPLER UPPER EXTREMITY, RIGHT CLINICAL INFORMATION: This is a 76-year-old female with right upper extremity pain and swelling. Possible deep vein thrombosis. COMPARISON: None TECHNIQUE: Ultrasound of the upper extremity is performed using compression sonography and color and pulse Doppler flow with assessment of augmentation of flow. There is also imaging and Doppler assessment of the jugular and subclavian veins. Spectral analysis with color-flow imaging is performed. FINDINGS: Respiratory variation, normal compression, and augmented flow are noted throughout the upper extremity including the axillary, brachial, cubital, and radial and ulnar veins. There is normal flow in the internal jugular and subclavian veins. There is no visible deep or superficial thrombophlebitis. If the patient's symptoms progress, a followup ultrasound in 5 -7 days might be of value to exclude proximal propagation from a nonvisualized distal arm vein. US/US venous duplex UE RT IMPRESSION: No DVT demonstrated in the right upper extremity venous system
--- NOTE | ~2021-12-02 | XR_ITS ---
EXAMINATION: XR HUMERUS, RIGHT CLINICAL INFORMATION: Pain and swelling COMPARISON: None TECHNIQUE: AP and lateral views of the right humerus. FINDINGS: The bones and soft tissues are normal. No fracture. Imaged portions of the shoulder and elbow are unremarkable. XR/XR humerus RT IMPRESSION: Normal right humerus.
[2021-12-02 19:19] VITALS: BP 136/69; PULSE 97; RESP 18; TEMP 37.1; O2SAT 97; BMI 30.5
--- NOTE | 2021-12-02 21:36 | ECG_ITS ---
Test Reason : neck pain Blood Pressure : / mmHG Vent. Rate : 085 BPM Atrial Rate : 085 BPM P-R Int : 176 ms QRS Dur : 080 ms QT Int : 358 ms P-R-T Axes : 035 -43 012 degrees QTc Int : 426 ms Normal sinus rhythm Left axis deviation Anterolateral infarct , age undetermined Abnormal ECG When compared with ECG of 30-NOV-2020 09:38, Anterolateral infarct is now Present Referred By: Generic ED Physician Electronically Signed By:LORENZO IBARRA
[2021-12-02 21:43] VITALS: BP 133/75; PULSE 100; RESP 16; TEMP 36.9; O2SAT 98
[2021-12-02 22:07] LABS: Hematocrit 40.1 % (37.0-47.0); Hemoglobin 13.3 g/dl (12.0-16.0); Mean Corpuscular HGB Conc 33.2 g/dl (31.0-35.0); Mean Corpuscular Hemoglobin 28.5 pg (27.0-33.0); Mean Corpuscular Volume 85.9 fL (80.0-98.0); Mean Platelet Volume 11.1 fL (9.4-12.3); Platelet Count 223 X10*3/uL (160-400); Red Blood Count 4.67 X10*6/uL (4.20-5.50); Red Cell Distribution Width 13.3 % (11.0-16.0); White Blood Count 10.8 X10*3/uL (4.8-10.8)
[2021-12-02 22:44] LABS: Alanine Aminotransferase 29 U/L (0-31); Albumin Level 4.3 g/dL (3.5-5.0); Alkaline Phosphatase 73 U/L (39-117); Anion Gap 18 (12-20); Aspartate Amino Transferase 25 U/L (5-31); Bilirubin Total 0.3 mg/dL (0.0-1.0); Blood Urea Nitrogen 16 mg/dL (9-16); Calcium 9.4 mg/dL (8.4-10.2); Carbon Dioxide 24 mmol/L (22-29); Chloride 101 mmol/L (96-108); Creatinine Clr Calc Pharmacy 51.3; Estimated Glomerular Filt Rate > 60; Glucose Random 253 mg/dL (60-115); Potassium 4.7 mmol/L (3.3-5.1); Sodium 138 mmol/L (135-145); Total Protein 7.5 g/dL (6.5-8.0)
[2021-12-02 22:46] LABS: Troponin-I High Sensitivity < 3.5 ng/L (<3.5-17.0)
--- NOTE | 2021-12-03 00:42 | ED_ITS ---
HPI - Extremity Problem General Chief complaint: Extremity Problem Stated complaint: R Arm Pain No Injury Time Seen by Provider: 12/02/21 21:40 Source: patient Mode of arrival: ambulatory Limitations: no limitations and language barrier History of Present Illness HPI Narrative: Patient noticed atraumatic right arm pain since 06:00 p.m. no chest pain or shortness of breath no swelling of the arm no any other extremity pain patient states she was not doing anything and noticed all of a sudden pain in the right biceps area Related Data Home Medications Medication Instructions Recorded Confirmed albuterol sulfate 90 mcg/actuation 2 puff PO Q4H PRN 02/09/20 09/03/21 aerosol inhaler blood sugar diagnostic #10 ea 02/09/20 09/03/21 cranberry 400 mg capsule 400 mg PO TID 02/09/20 09/03/21 hydrocortisone 2.5 % topical cream 1 applic topical DAILY PRN 02/09/20 09/03/21 ipratropium bromide 21 mcg (0.03 2 spray intranasal BID 02/09/20 09/03/21 %) nasal spray nystatin 100,000 unit/gram topical topical BID 02/09/20 09/03/21 cream omega-3 fatty acids-fish oil 340 1 cap PO DAILY 02/09/20 09/03/21 mg-1,000 mg capsule tizanidine 2 mg tablet 2 mg PO TID PRN 02/09/20 09/03/21 vitamin A 10,000 unit capsule 2 cap PO DAILY 02/09/20 09/03/21 vitamin E (dl, acetate) 180 mg 400 unit PO DAILY 02/09/20 09/03/21 (400 unit) capsule Previous Rx's Medication Instructions Recorded miscellaneous medical supply 1 ea miscellaneous .once a day 30 06/26/20 days #1 ea terconazole 0.8 % vaginal cream 1 appful vaginal BEDTIME 3 days 07/02/20 #20 grams acyclovir 400 mg tablet 400 mg PO TID 7 days #21 tabs 10/08/20 albuterol sulfate 90 mcg/actuation 2 puff inhalation Q4-6H PRN 10/08/20 aerosol inhaler (Ventolin HFA) bronchospasm 30 days #6.7 grams alcohol swabs 1 pad topical BID 30 days #100 ea 10/08/20 aspirin 81 mg tablet,delayed 81 mg PO DAILY 90 days #90 tabs 10/08/20 release calcium carbonate 600 mg-vitamin 1 tab PO DAILY 90 days #90 tabs 10/08/20 D3 10 mcg (400 unit) tablet cyanocobalamin (vitamin B-12) 1,000 mcg PO DAILY 90 days #90 tabs 10/08/20 1,000 mcg tablet docusate calcium 240 mg capsule 480 mg PO DAILY 90 days #180 caps 10/08/20 empagliflozin 25 mg tablet 25 mg PO QAM #90 tabs 10/08/20 (Jardiance) fluticasone 113 mcg-salmeterol 14 1 inh PO BID 30 days #1 ea 10/08/20 mcg/actuation breath activated powdr lisinopril 2.5 mg tablet 2.5 mg PO DAILY 90 days #90 tabs 10/08/20 metformin 1,000 mg tablet 1,000 mg PO DAILY #90 tabs 10/08/20 montelukast 10 mg tablet 10 mg PO DAILY 90 days #90 tabs 10/08/20 venlafaxine 75 mg capsule,extended 75 mg PO DAILY 90 days #90 caps 10/08/20 release 24 hr pen needle, diabetic 31 gauge x See Rx Instructions subcut 11/27/20/ (BD Ultra-Fine Short Pen .COMPLEX #100 ea Needle) insulin glargine U-300 conc 300 See Rx Instructions subcut BEDTIME 11/28/20 unit/mL (1.5 mL) subcutaneous pen 30 days #4.5 mL (Toujeo SoloStar U-300 Insulin) rosuvastatin 40 mg tablet 40 mg PO DAILY 90 days #90 tabs 04/14/21 trazodone 150 mg tablet 300 mg PO BEDTIME PRN insomnia 90 07/08/21 days #90 tabs blood sugar diagnostic (FreeStyle #100 ea 08/28/21 Lite Strips) blood-glucose meter (FreeStyle #1 ea 08/28/21 Lite Meter kit) lancets 28 gauge (FreeStyle #100 ea 08/28/21 Lancets) etodolac 600 mg tablet,extended 600 mg PO DAILY 30 days #30 tabs 11/04/21 release 24 hr dulaglutide 0.75 mg/0.5 mL 0.75 mg (0.5 mL) subcut QWEEK 90 11/08/21 subcutaneous pen injector days #6.5 mL (Trulicity) lidocaine 5 % topical patch 1 patch topical DAILY 30 days #30 11/14/21 ea shoe inserts #2 ea 11/14/21 diabetic shoes with inserts #1 ea 11/25/21 Allergies Allergy/AdvReac Type Severity Reaction Status Date / Time No Known Allergies Allergy Verified 11/27/21 13:03 [No Known Allergies*] Review of Systems Review of Systems: Yes all other systems are reviewed and are negative [facility] Past Medical History Medical History B12 deficiency Diabetes mellitus Essential hypertension Fibromyalgia Hypovitaminosis D Left foot pain Left hip pain Left knee pain Low back pain Mixed hyperlipidemia Moderate asthma Nausea Skin lesion Spondylosis of lumbar region without myelopathy or radiculopathy Unsteady gait Surgical History History of right oophorectomy History of tubal ligation Family History Family History Father CVD (cardiovascular disease) Diabetes Mother Diabetes Hypertension CVD (cardiovascular disease) Sister Colon cancer Breast cancer Blind Uterine cancer Social History Social History Housing: Apartment Alcohol intake: never Patient Tobacco Use Status: Never used Tobacco e-Cigarette/Vaping Use: Never Used Second Hand Smoke Exposure: No Advance Directives: No service: No Current occupational status: unemployed and disabled Cognitive needs: Yes Hearing needs: No Vision needs: Yes Physical Exam Vital Signs: Vital Signs: Last Vital Signs Temp 98.5 F 12/02/21 21:43 Pulse 100 12/02/21 21:43 Resp 16 12/02/21 21:43 BP 133/75 12/02/21 21:43 Pulse Ox 98 12/02/21 21:43 O2 Del Method 12/02/21 21:43 BMI result Body Mass Index 30.5 Appearance: Alert. Oriented X3. No acute distress. ENT: Pharynx normal. Oral Mucosa moist Neck: Normal inspection. Neck supple. CVS: Normal heart rate and rhythm. Pulses normal. Respiratory: No respiratory distress. Equal air entry bilateral, no wheezing/rales/rhonchi Abdomen: Soft and nontender. Bowel sounds are present, no mass palpable, no CVA tenderness Skin: Skin warm and dry. Normal skin color. Normal skin turgor. Extremities: No lower extremity edema. No calf tenderness right upper extremity; no swelling good strength both flexion and extension, local tenderness in the right biceps area without any gap in the muscle Neuro: Oriented X 3. No motor deficit. No sensory deficit. MDM - Extremity (Nontraumatic) MDM Narrative Medical decision making narrative: Patient clinically has musculoskeletal right arm pain no signs of biceps tendon tear patient had good range of movement cardiac enzymes negative EKG without any ischemic changes Lab Data Attestation: I reviewed the patient's lab results. Result diagrams: 12/02/21 22:00 12/02/21 22:00 Labs: Lab Results 12/02/21 12/02/21 12/02/21 Range/Units 22:00 22:00 22:00 WBC 10.8 (4.8-10.8) X10*3/uL RBC 4.67 (4.20-5.50) X10*6/uL Hgb 13.3 (12.0-16.0) g/dl Hct 40.1 (37.0-47.0) % MCV 85.9 (80.0-98.0) fL MCH 28.5 (27.0-33.0) pg MCHC 33.2 (31.0-35.0) g/dl RDW 13.3 (11.0-16.0) % Plt Count 223 (160-400) X10*3/uL MPV 11.1 (9.4-12.3) fL Absolute Nucleated RBC 0.000 (0.0-0.012) X10*3/uL Nucleated RBC % (auto) 0.0 (0.0-0.2) /100WBC Sodium 138 (135-145) mmol/L Potassium 4.7 (3.3-5.1) mmol/L Chloride 101 (96-108) mmol/L Carbon Dioxide 24 (22-29) mmol/L Anion Gap 18 (12-20) BUN 16 (9-16) mg/dL Creatinine 0.75 (0.5-1.4) mg/dL Estim Creat Clear Calc 51.3 Estimated GFR > 60 Random Glucose 253 H (60-115) mg/dL Calcium 9.4 (8.4-10.2) mg/dL Total Bilirubin 0.3 (0.0-1.0) mg/dL AST 25 (5-31) U/L ALT 29 (0-31) U/L Alkaline Phosphatase 73 (39-117) U/L Troponin I High Sens < 3.5 (<3.5-17.0) ng/L Total Protein 7.5 (6.5-8.0) g/dL Albumin 4.3 (3.5-5.0) g/dL ECG Data Attestation EKG: I personally reviewed and interpreted this ECG as follows: Interpretation: Normal sinus rhythm heart rate 85 beats per minute left axis deviation normal interval no acute ST T wave changes Discharge Plan Discharge Clinical Impression: Arm pain, musculoskeletal Patient Disposition: Home, Self-Care Instructions: Musculoskeletal Pain (ED), Arm Pain (ED) Additional Instructions: Your pain in right arm is likely musculoskeletal Doppler negative for blood clot x-ray negative labs are stable Tylenol for pain Es probable que ramirez dolor en el brazo derecho sea musculoesquel?bruce Doppler negativo para co?gulos de susana. Los laboratorios negativos de breana X est?n estables. Tylenol para el dolor Prescriptions: No Action pen needle, diabetic [BD Ultra-Fine Short Pen Needle] 31 gauge x 5/16 needle See Rx Instructions subcut .COMPLEX Qty: 100 2RF Rx Instructions: subcut daily; Toujeo SoloStar U-300 Insulin 300 unit/mL (1.5 mL) insulin pen See Rx Instructions subcut BEDTIME 30 Days Qty: 4.5 6RF Rx Instructions: 25Units subcut bedtime; rosuvastatin 40 mg tablet 40 mg PO DAILY 90 Days Qty: 90 1RF trazodone 150 mg tablet 300 mg PO BEDTIME PRN (Reason: insomnia) 90 Days Qty: 90 1RF (DME) blood-glucose meter [FreeStyle Lite Meter] Kit See Rx Instructions .ROUTE .MEDSUPPLY Qty: 1 0RF Rx Instructions: As directed 3x/day (DME) FreeStyle Lite Strips Strip See Rx Instructions .ROUTE .MEDSUPPLY Qty: 100 11RF Rx Instructions: As directed three times a day (DME) lancets [FreeStyle Lancets] 28 gauge misc See Rx Instructions .ROUTE .MEDSUPPLY Qty: 100 11RF Rx Instructions: Three times a day etodolac 600 mg tablet extended release 24 hr 600 mg PO DAILY 30 Days Qty: 30 1RF Trulicity 0.75 mg/0.5 mL pen injector 0.75 mg subcut QWEEK 90 Days Qty: 6.5 3RF lidocaine 5 % adhesive patch,medicated 1 patch topical DAILY 30 Days Qty: 30 6RF (DME) shoe inserts 7 See Rx Instructions .Route .MEDSUPPLY Qty: 2 1RF Rx Instructions: As directed (DME) diabetic shoes with inserts 7 See Rx Instructions .Route .MEDSUPPLY Qty: 1 1RF Rx Instructions: As directed albuterol sulfate 90 mcg/actuation HFA aerosol inhaler 2 puff PO Q4H PRN nystatin 100,000 unit/gram cream topical BID ipratropium bromide 0.03 % spray,non-aerosol 2 spray intranasal BID Rx Instructions: administer into each nostril tizanidine 2 mg tablet 2 mg PO TID PRN hydrocortisone 2.5 % cream 1 applic topical DAILY PRN (DME) FreeStyle Lite Strips Strip See Rx Instructions Not Applicable QID Qty: 10 Rx Instructions: As directed vitamin E (dl, acetate) 400 unit capsule 400 unit PO DAILY vitamin A 10,000 unit capsule 2 cap PO DAILY cranberry 400 mg capsule 400 mg PO TID Fish Oil 340-1,000 mg capsule 1 cap PO DAILY miscellaneous medical supply Kit 1 ea miscellaneous .once a day 30 Days Qty: 1 0RF acyclovir 400 mg tablet 400 mg PO TID 7 Days Qty: 21 3RF albuterol sulfate [Ventolin HFA] 90 mcg/actuation HFA aerosol inhaler 2 puff inhalation Q4-6H PRN (Reason: bronchospasm) 30 Days Qty: 6.7 6RF alcohol swabs Pads, Medicated 1 pad topical BID 30 Days Qty: 100 1RF aspirin 81 mg tablet,delayed release (DR/EC) 81 mg PO DAILY 90 Days Qty: 90 3RF calcium carbonate-vitamin D3 600 mg(1,500mg) -400 unit tablet 1 tab PO DAILY 90 Days Qty: 90 3RF cyanocobalamin (vitamin B-12) 1,000 mcg tablet 1,000 mcg PO DAILY 90 Days Qty: 90 3RF docusate calcium 240 mg capsule 480 mg PO DAILY 90 Days Qty: 180 3RF Jardiance 25 mg tablet 25 mg PO QAM Qty: 90 3RF fluticasone propion-salmeterol 113-14 mcg/actuation aerosol powdr breath activated 1 inh PO BID 30 Days Qty: 1 6RF lisinopril 2.5 mg tablet 2.5 mg PO DAILY 90 Days Qty: 90 3RF metformin 1,000 mg tablet 1,000 mg PO DAILY Qty: 90 1RF montelukast 10 mg tablet 10 mg PO DAILY 90 Days Qty: 90 3RF venlafaxine 75 mg capsule,extended release 24hr 75 mg PO DAILY 90 Days Qty: 90 1RF terconazole 0.8 % cream 1 appful vaginal BEDTIME 3 Days Qty: 20 0RF Print Language: Turkmen
[2021-12-03] MEDS: Acetaminophen 325 MG TABLET 650 MG PO (01:42)
[2021-12-03 01:46] VITALS: BP 129/86; RESP 79; TEMP 36.8; O2SAT 97
== END 2021-12-03 01:47 | disposition home or self-care (01) ==
PROVIDERS: Emergency Provider Internal Medicine; PCP Internal Medicine
DX: M54.2 Cervicalgia (principal); M79.601 Pain in right arm; R60.0 Localized edema; Z79.899 Other long term (current) drug therapy
CPT/HCPCS: 36415; 73060; 80053; 84484; 85027; 93005; 93971; 99284

== ENCOUNTER → 2021-12-05 11:49 | Outpatient (BNVA) | payer OTHER, SELFPAY | PROVIDERS: PCP Internal Medicine; Visit Provider Orthopaedic Surgery | DX: M17.12 Unilateral primary osteoarthritis, left knee (principal); R29.6 Repeated falls | CPT/HCPCS: 20610; 99212; J1100 ==

== ENCOUNTER 2022-07-31 14:59 | Outpatient (REF) | payer OTHER, SELFPAY ==
[2022-07-31 17:50] LABS: Appearance Urine Cloudy; Color Urine Dark Yellow; Glucose Urine UA >=1000 mg/dL (Negative); Leukocyte Esterase Urine Negative (Negative); Nitrite Urine Negative (Negative); PH 5.5 (5.0-9.0); Specific Gravity - Urine >= 1.030 (1.005-1.025); UMIC TRIGGER UACC YES; Urine Blood Negative (Negative); Urine Ketones Trace mg/dL (Negative); Urine Protein Trace mg/dL (Neg-Trace)
[2022-07-31 19:09] LABS: Bacteria Urine Trace (None Seen); RBC Urine 0-2 /HPF (0-2); UACC Culture Trigger YES
== END 2022-07-31 15:00 | disposition home or self-care (01) ==
LOC: HO.LAB 14:59
PROVIDERS: PCP Internal Medicine; Visit Provider Physician Assistant
DX: N30.00 Acute cystitis without hematuria (principal); R30.0 Dysuria
CPT/HCPCS: 81001; 87086

== ENCOUNTER 2022-08-01 21:05 | Emergency (ER) | payer OTHER, SELFPAY ==
[2022-08-01 21:56] VITALS: BP 130/69; PULSE 84; RESP 16; TEMP 36.6; O2SAT 96; BMI 27.1
--- NOTE | 2022-08-02 00:40 | PC.NURSE ---
pt reported she fell while getting out of the tub, c/o right sided head pain and right lateral chest and lower ext. -loc
--- NOTE | 2022-08-02 02:41 | PC.NURSE ---
pt left without been seen
== END 2022-08-02 02:44 | disposition left against medical advice (07) ==
PROVIDERS: Emergency Provider Internal Medicine; PCP Internal Medicine
DX: Z04.3 Encounter for examination and observation following other accident (principal); R51.9 Headache, unspecified; Z91.81 History of falling; I10 Essential (primary) hypertension; E11.9 Type 2 diabetes mellitus without complications; E78.5 Hyperlipidemia, unspecified
CPT/HCPCS: 99282; 99283

== ENCOUNTER 2023-08-17 15:30 | Outpatient (AMB) | payer OTHER, SELFPAY ==
--- NOTE | 2023-08-17 16:32 | AM.OFFWIN_ITS ---
Intake Vital Signs 08/17/23 16:33 Height 4 ft 10 in Weight 137 lb 2 oz BMI 28.7 BP 112/70 Blood Pressure Location Lt brachial Position Sitting Pulse 104 H Pulse Source Pulse Oximeter Temp 98.3 F Temp Source Temporal Artery Scan Pulse Oximetry (%) 94 Oxygen Delivery Method Room Air Intake Visit Reasons: EP rt arm pain Intake Note: Pt presents to the office today for c/o RT arm pain around her elbow that started 2 days ago. She states she was opening a door and she hit her arm on the door. Patient Tobacco Use Status: Never used Tobacco Accompanied by: Daughter Allergies No Known Allergies [No Known Allergies*] Allergy (Verified 08/17/23 16:47) Medication List - Last Reconciled 08/17/23 by Randall Naik MD acyclovir 400 mg PO TID 7 days albuterol sulfate 90 mcg/actuation 2 puffs PO Q4H PRN 90 days albuterol sulfate 90 mcg/actuation (Ventolin HFA) 2 puffs inhalation Q4-6H PRN 30 days alcohol swabs 1 pad topical BID 30 days aspirin 81 mg PO DAILY 90 days blood sugar diagnostic As directed blood sugar diagnostic (FreeStyle Lite Strips) As directed three times a day blood sugar diagnostic (OneTouch Ultra Test strips) DIRECTED TO TEST BLOOD S UGAR THREE TIMES DAILY blood-glucose meter (OneTouch Ultra2 Meter kit) test 3xs per day blood-glucose meter (FreeStyle Lite Meter kit) As directed 3x/day calcium carbonate-vitamin D3 600 mg-10 mcg (400 unit) 1 tab PO DAILY 90 days cranberry 400 mg PO TID 90 days cyanocobalamin (vitamin B-12) 1,000 mcg PO DAILY 90 days [diabetic shoes with inserts As directed] docusate calcium 480 mg (2 x 240 mg) PO DAILY 90 days donepezil 10 mg (2 x 5 mg) PO BEDTIME 30 days dulaglutide (Trulicity) 0.75 mg (0.5 mL) subcut QWEEK 90 days empagliflozin (Jardiance) 25 mg PO QAM etodolac ER 600 mg PO DAILY 90 days fluticasone propion-salmeterol 113-14 mcg/actuation 1 inh PO BID 30 days hydrocortisone 2.5% 1 appl topical TID PRN 90 days incontinence pad, liner, disp Use 1 pad prn 6 times per day insulin glargine U-300 conc (Toujeo SoloStar U-300 Insulin) 25Units subcut bedtime; 30 days ipratropium bromide 2 sprays intranasal BID 90 days lancets (FreeStyle Lancets) Three times a day lidocaine 5% 1 patch topical DAILY 30 days lisinopril 2.5 mg PO DAILY 90 days metformin 1,000 mg PO BID 90 days miscellaneous medical supply 1 ea miscellaneous .once a day 30 days montelukast 10 mg PO DAILY 90 days nystatin topical BID omega-3 fatty acids-fish oil 340-1,000 mg 1 cap PO DAILY oxycodone-acetaminophen 5-325 mg 1 tab PO BID PRN 7 days pen needle, diabetic (BD Ultra-Fine Short Pen Needle) subcut daily; psyllium husk (Metamucil) 1 tbsp PO BID 14 days rosuvastatin 40 mg PO DAILY 90 days selenium sulfide 1% (Dandruff Shampoo (selenium sulfide)) 1 appl topical BEDTIME PRN 30 days [shoe inserts As directed] Shower Chair As directed terconazole 0.8% 1 appful vaginal BEDTIME 3 days tizanidine 2 mg PO TID PRN 90 days underpads (Bed Underpads) Use 3 to 4 underpads daily prn venlafaxine ER 75 mg PO DAILY 90 days vitamin A 2 caps PO DAILY 90 days vitamin E (dl, acetate) 180 mg PO DAILY 90 days [wipes As directed] HPI EP rt arm pain HPI0 Details 77 yr old female presents to the office for a sick visit. She banged her forearm against a door and wants it evaluated. [facility] Medical History Skin lesion Mixed hyperlipidemia Essential hypertension Left knee pain Left hip pain Left foot pain Unsteady gait Low back pain Spondylosis of lumbar region without myelopathy or radiculopathy Hypovitaminosis D Nausea Moderate asthma Fibromyalgia Diabetes mellitus B12 deficiency Surgical History History of right oophorectomy History of tubal ligation Family History Father CVD (cardiovascular disease) Diabetes Mother Diabetes Hypertension CVD (cardiovascular disease) Sister Colon cancer Breast cancer Blind Uterine cancer Family/Other Mental health disorder Social History Housing: Apartment Alcohol intake: never Patient Tobacco Use Status: Never used Tobacco e-Cigarette/Vaping Use: Never Used Second Hand Smoke Exposure: No service: No Current occupational status: unemployed and disabled Cognitive needs: Yes Hearing needs: No Vision needs: Yes Physical Exam Vital Signs: Last Vital Signs Temp 98.3 F 08/17/23 16:33 Pulse 104 H 08/17/23 16:33 BP 112/70 08/17/23 16:33 Pulse Ox 94 08/17/23 16:33 Oxygen Delivery Method Room Air 08/17/23 16:33 BMI result Body Mass Index 28.7 Extrem Other: Right forearm: Full range of motion, pronation and extension. Elbow: full range of motion Assessment & Plan Assessment & Plan (1) Contusion, forearm: Code(s): S50.10XA - Contusion of unspecified forearm, initial encounter Plan: Reassurance. No xray needed. Sx should resolve on its own. Coding Level of Care Code Est Pt Level 3 (61250) Diagnoses Contusion, forearm S50.10XA
[2023-08-17 16:33] VITALS: BP 112/70; PULSE 104; TEMP 36.8; O2SAT 94; BMI 28.7
== END 2023-08-17 16:54 | disposition home or self-care (01) ==
PROVIDERS: PCP Internal Medicine; Visit Provider Internal Medicine
DX: S50.10XA Contusion of unspecified forearm, initial encounter (principal)
CPT/HCPCS: 99213

== ENCOUNTER 2023-08-20 11:06 | Outpatient (REF) | payer OTHER, SELFPAY | END 2023-08-20 11:07 | disposition home or self-care (01) | LOC: HO.MAMMO 11:06 | PROVIDERS: PCP Internal Medicine; Visit Provider Internal Medicine | DX: Z12.31 Encounter for screening mammogram for malignant neoplasm of breast (principal) | CPT/HCPCS: 77063; 77067 ==

== ENCOUNTER → 2023-08-20 12:00 | Outpatient (BNV) | payer OTHER, SELFPAY | PROVIDERS: PCP Internal Medicine; Visit Provider Radiology Diagnostic Radiology | DX: Z12.31 Encounter for screening mammogram for malignant neoplasm of breast (principal) | CPT/HCPCS: 77063; 77067 ==

== ENCOUNTER 2023-08-24 14:21 | Outpatient (AMB) | payer OTHER, SELFPAY ==
--- NOTE | 2023-08-24 14:31 | A.OFFPC_ITS ---
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 Accompanied by: Daughter Allergies No Known Allergies [No Known Allergies*] Allergy (Verified 08/24/23 15:01) Medication List - Last Reconciled 08/24/23 by Chani Titus MD acyclovir 400 mg PO TID 7 days albuterol sulfate 90 mcg/actuation 2 puffs PO Q4H PRN 90 days albuterol sulfate 90 mcg/actuation (Ventolin HFA) 2 puffs inhalation Q4-6H PRN 30 days alcohol swabs 1 pad topical BID 30 days aspirin 81 mg PO DAILY 90 days blood sugar diagnostic As directed blood sugar diagnostic (FreeStyle Lite Strips) As directed three times a day blood sugar diagnostic (OneTouch Ultra Test strips) DIRECTED TO TEST BLOOD SUGAR THREE TIMES DAILY blood-glucose meter (OneTouch Ultra2 Meter kit) test 3xs per day blood-glucose meter (FreeStyle Lite Meter kit) As directed 3x/day calcium carbonate-vitamin D3 600 mg-10 mcg (400 unit) 1 tab PO DAILY 90 days cranberry 400 mg PO TID 90 days cyanocobalamin (vitamin B-12) 1,000 mcg PO DAILY 90 days [diabetic shoes with inserts As directed] docusate calcium 480 mg (2 x 240 mg) PO DAILY 90 days donepezil 10 mg (2 x 5 mg) PO BEDTIME 30 days dulaglutide (Trulicity) 0.75 mg (0.5 mL) subcut QWEEK 90 days empagliflozin (Jardiance) 25 mg PO QAM etodolac ER 600 mg PO DAILY 7 days fluticasone propion-salmeterol 113-14 mcg/actuation 1 inh PO BID 30 days hydrocortisone 2.5% 1 appl topical TID PRN 90 days incontinence pad, liner, disp Use 1 pad prn 6 times per day insulin glargine U-300 conc (Toujeo SoloStar U-300 Insulin) 25Units subcut bedtime; 30 days ipratropium bromide 2 sprays intranasal BID 90 days lancets (FreeStyle Lancets) Three times a day lidocaine 5% 1 patch topical DAILY 30 days lisinopril 2.5 mg PO DAILY 90 days metformin 1,000 mg PO BID 90 days miscellaneous medical supply 1 ea miscellaneous .once a day 30 days montelukast 10 mg PO DAILY 90 days nystatin topical BID omega-3 fatty acids-fish oil 340-1,000 mg 1 cap PO DAILY oxycodone-acetaminophen 5-325 mg 1 tab PO BID PRN 7 days pen needle, diabetic (BD Ultra-Fine Short Pen Needle) subcut daily; psyllium husk (Metamucil) 1 tbsp PO BID 14 days rosuvastatin 40 mg PO DAILY 90 days selenium sulfide 1% (Dandruff Shampoo (selenium sulfide)) 1 appl topical BEDTIME PRN 30 days [shoe inserts As directed] Shower Chair As directed terconazole 0.8% 1 appful vaginal BEDTIME 3 days tizanidine 2 mg PO TID PRN 90 days underpads (Bed Underpads) Use 3 to 4 underpads daily prn venlafaxine ER 75 mg PO DAILY 90 days vitamin A 2 caps PO DAILY 90 days vitamin E (dl, acetate) 180 mg PO DAILY 90 days [wipes As directed] Tobacco use date assessed: 08/24/23 Fall risk assessment: 1 Fall in past year Last assessed Fall Risk: 08/24/23 Dental Screening Dental Screen Date: 08/24/23 Did you have a dental visit in the last 12 months?: Yes Did you have a dental problem in the last 6 months where you did not have access to dental care?: No Was dental information given to patient?: Patient has dentist HPI HPI Comments History of Present Illness Details This is a 77-year-old female with Alzheimer's dementia, diabetes mellitus type 2 on long-term current use of insulin, hypertension, hyperlipidemia and mild major depression that comes accompanied by daughter for follow-up on her conditions. Dementia has been stable with donepezil and she is awake, alert and oriented to person and place but not to time. A1c elevated and I will increase insulin from 25 units to 30 and I will also increase Trulicity. Blood pressure stable. Lipid panel will be order and her LDL goal should be less than 70. Depression well controlled with venlafaxine at bedtime. No chest pain or shortness of breath. [facility] Medical History (Updated 08/24/23 @ 16:42 by Chani Titus MD) Skin lesion Mixed hyperlipidemia Essential hypertension Left knee pain Left hip pain Left foot pain Unsteady gait Low back pain Spondylosis of lumbar region without myelopathy or radiculopathy Hypovitaminosis D Nausea Moderate asthma Fibromyalgia Diabetes mellitus B12 deficiency Surgical History History of right oophorectomy History of tubal ligation Family History Father CVD (cardiovascular disease) Diabetes Mother Diabetes Hypertension CVD (cardiovascular disease) Sister Colon cancer Breast cancer Blind Uterine cancer Family/Other Mental health disorder Social History Housing: Apartment Alcohol intake: never Patient Tobacco Use Status: Never used Tobacco e-Cigarette/Vaping Use: Never Used Second Hand Smoke Exposure: No service: No Current occupational status: unemployed and disabled Cognitive needs: Yes Hearing needs: No Vision needs: Yes Questionnaire PHQ-9 Over the last 2 weeks, how often have you been bothered by any of the following problems? 1. Little interest or pleasure in doing things: not at all 2. Feeling down, depressed, or hopeless: several days 3. Trouble falling or staying asleep, or sleeping too much: not at all 4. Feeling tired or having little energy: several days 5. Poor appetite or overeating: not at all 6. Feeling bad about yourself - or that you are a failure or have let yourself or your family down: not at all 7. Trouble concentrating on things, such as reading the newspaper or watching television: not at all 8. Moving or speaking so slowly that other people could have noticed. Or the opposite - being so fidgety or restless that you have been moving around a lot more than usual: not at all 9. Thoughts that you would be better off or of hurting yourself in some way: not at all Total score: 2 Depression Screening Interpretation: Negative Depression Screening Done: Yes 89872 - PHQ-9 Billing: Yes Source: Developed by Drs. Shayne Lennon, Tiff Boudreaux, Amado Andres and colleagues, with an educational blaire from [employer]. Thrive Questionnaire Date Thrive assessed: 08/24/23 I am a: Patient What is your living situation today?: I have a steady place to live Within the past 12 months, did the food you bought not last and you didn't have the money to get more?: Never true Within the past 12 months, did you worry whether your food would run out before you got money to buy more?: Never true Do you have trouble paying for medicines?: No Do you have trouble getting transportation to medical appointments?: No Do you have trouble paying your heating and electricity bill?: No Do you have trouble taking care of your child, family member or friend?: No Do you have trouble with day-to-day activities such as bathing, preparing meals, shopping, managing finances, etc.?: Yes Are you currently unemployed and looking for a job?: No Are you interested in more education?: No Please select the resources that you would like help with: None Currently or been in a relationship where the following occur: no concerns reported THRIVE Score: 0 AUDIT C Alcohol Use Questionnaire (AUDIT-C) 1. How often do you have a drink containing alcohol?: Never Total Score: 0 Score Reviewed/Action Taken: No MARCIAL-7 AMB Questionnaire MARCIAL-7 Date MARCIAL - 7 assessed: 08/24/23 Feeling nervous, anxious, or on edge: 1 = Several days Not being able to stop or control worryin = Not at all Worrying too much about different things: 1 = Several days Trouble relaxin = Not at all Being so restless that it is hard to sit still: 0 = Not at all Becoming easily annoyed or irritable: 0 = Not at all Feeling afraid as if something awful might happen: 0 = Not at all Total MARCIAL-7 score (0-4 normal; 5-9 mild; 10-14 moderate; 15-21 severe): 2 Source: Developed by Drs. Shayne Lennon, Tiff Boudreaux, Amado Andres and colleagues, with an educational blaire from [employer]. MARCIAL-7 Assessment Billing MARCIAL-7 Assessment Tool: MARCIAL-7 Assessment 77653 Review of Systems Const All systems reviewed & are unremarkable except as noted in HPI and below Eyes Reports no additional complaints, Denies change in vision and Denies other visual disturbances Card Denies chest pain at rest, Denies chest pain with activity, Denies edema, Denies irregular heart rhythm, Denies claudication, Denies dyspnea, Denies dyspnea on exertion, Denies orthopnea, Denies paroxysmal nocturnal dyspnea and Denies slow heart rate Resp Denies cough, Denies dyspnea and Denies dyspnea on exertion GI Denies abdominal pain, Denies change in bowel habits, Denies excessive flatus, Denies nausea and Denies vomiting Denies urinary incontinence, Denies urinary hesitancy and Denies urinary urgency Physical exam (Primary Care) Vital Signs: Last Vital Signs BP 122/80 08/24/23 14:32 BMI result Body Mass Index 28.4 Tobacco/Smoking Status: Tobacco use Status Tobacco use date assessed 08/24/23 08/24/23 14:41 Patient Tobacco Use Status Never used Tobacco 08/24/23 14:32 e-Cigarette/Vaping Use Never Used 08/24/23 14:32 PHQ-9: PHQ-9 Score PHQ-9: Total score 2 08/24/23 15:05 Depression Screening Interpretation: Negative Thrive Assessment: Date of Thrive Assessment Date Thrive assessed 08/24/23 08/24/23 14:41 Currently or been in a relationship where the following occur: no concerns reported Const Orientation/consciousness: oriented to person and oriented to place Resp Effort & Inspection: normal respiratory effort Auscultation: clear to auscultation bilaterally Cardio Jugular venous distension: no JVD Rate: regular rate Rhythm: regular rhythm Heart sounds: S1 normal heart sound present and S2 normal heart sound present Neuro General: oriented to person, oriented to place and no focal motor deficits Extrem General: Yes full ROM Results AMB Hemoglobin A1c AMB Hemoglobin A1c 13.7 % Last Edit by ALANNA Villeda on 08/24/23 14: 48 Results Reviewed Results Reviewed: Laboratory Last Values Hgb A1c (Clinic) 13.7 % (4.0-6.0) H 08/24/23 14:44 Assessment and Plan Assessment & Plan (1) Alzheimer's dementia: Code(s): G30.9 - Alzheimer's disease, unspecified; F02.80 - Dementia in other diseases classified elsewhere, unspecified severity, without behavioral disturbance, psychotic disturbance, mood disturbance, and anxiety Plan: Continue donepezil. (2) Diabetes mellitus: Code(s): E11.9 - Type 2 diabetes mellitus without complications Qualifiers: Diabetes mellitus type: type 2 Diabetes mellitus senior living insulin use: without termite treater use Diabetes mellitus complication status: without complication Qualified Code(s): E11.9 - Type 2 diabetes mellitus without complications Plan: Continue Jardiance. Increase Trulicity and insulin. A1c goal is equal or less than 7%. (3) Hyperlipidemia LDL goal <70: Code(s): E78.5 - Hyperlipidemia, unspecified Plan: Continue statins. Repeat lipid panel. LDL goal is less than 70. (4) Essential hypertension: Code(s): I10 - Essential (primary) hypertension Plan: Continue lisinopril. Blood pressure goal is equal or less than 130/80. (5) Mild major depression: Code(s): F32.0 - Major depressive disorder, single episode, mild Plan: Continue venlafaxine. Orders: Orders AMB Hemoglobin A1c Today E11.9 - Type 2 diabetes mellitus without complications Lipid Panel Today E78.5 - Hyperlipidemia, unspecified Microalbumin, Random (w Creat) Today E11.9 - Type 2 diabetes mellitus without complications Complete Blood Count Auto Diff Today F02.80 - Dementia in other diseases classified elsewhere, unspecified severity, without behavioral disturbance, psychotic disturbance, mood disturbance, and anxiety, G30.9 - Alzheimer's disease, unspecified Vitamin B12 and Folate Today E53.8 - Deficiency of other specified B group vitamins Vitamin D 25-OH Total Today E55.9 - Vitamin D deficiency, unspecified Thyroid Stimulating Hormone Today F02.80 - Dementia in other diseases classified elsewhere, unspecified severity, without behavioral disturbance, psychotic disturbance, mood disturbance, and anxiety, G30.9 - Alzheimer's disease, unspecified Comprehensive [place]. Panel Fast Today F02.80 - Dementia in other diseases classified elsewhere, unspecified severity, without behavioral disturbance, psychotic disturbance, mood disturbance, and anxiety, G30.9 - Alzheimer's disease, unspecified Medications: New dulaglutide (Trulicity) 1.5 mg (0.5 mL) subcut QWEEK 2.5 mL 1RF 30 days nystatin 1 appl topical BID PRN 30 grams 0RF rash 30 days Changed From insulin glargine U-300 conc (Toujeo SoloStar U-300 Insulin) 25Units subcut bedtime; 30 days 4.5 mL 6RF E11.9 - Type 2 diabetes mellitus without complications To insulin glargine U-300 conc (Toujeo SoloStar U-300 Insulin) 30 units (0.1 mL) subcut BEDTIME 3 mL 6RF 30 days E11.9 - Type 2 diabetes mellitus without complications Discontinued dulaglutide (Trulicity) Discontinued Reason: No Longer Medically Relevant 0.75 mg (0.5 mL) subcut QWEEK 90 days 6.5 mL 3RF E11.9 - Type 2 diabetes mellitus without complications Coding Level of Care Code Est Pt Level 4 (15013) Diagnoses Alzheimer's dementia G30.9; F02.80 Type 2 diabetes mellitus without complication, without long-term current use of insulin E11.9 Diabetes mellitus type: type 2 Diabetes mellitus termite treater insulin use: without termite treater use Diabetes mellitus complication status: without complication Hyperlipidemia LDL goal <70 E78.5 Essential hypertension I10 Mild major depression F32.0 Additional Codes MARCIAL-7 Assessment Billing - MARCIAL-7 Assessment Tool: MARCIAL-7 Assessment 75461 ([id number]) Time Spent (min) 25
[2023-08-24 14:32] VITALS: BP 122/80; BMI 28.4
== END 2023-08-24 15:14 | disposition home or self-care (01) ==
PROVIDERS: PCP Internal Medicine; Visit Provider Internal Medicine
DX: E11.69 Type 2 diabetes mellitus with other specified complication (principal); G30.9 Alzheimer's disease, unspecified; F02.80 Dementia in other diseases classified elsewhere, unspecified severity, without behavioral disturbance, psychotic disturbance, mood disturbance, and anxiety; F32.0 Major depressive disorder, single episode, mild; E78.5 Hyperlipidemia, unspecified; I10 Essential (primary) hypertension
CPT/HCPCS: 83036; 99214

== ENCOUNTER 2023-09-02 09:33 | Outpatient (REF) | payer OTHER, SELFPAY ==
[2023-09-02 09:53] LABS: MANUAL DIFF FLAG NO
[2023-09-02 10:34] LABS: Basophils Percent Auto 0.2 % (0-2); Hematocrit 42.9 % (37.0-47.0); Hemoglobin 14.3 g/dl (12.0-16.0); Imm Gran Abs Auto 0.02 X10*3/uL (0.00-0.03); Imm Gran Pct Auto 0.2 % (0.0-0.4); Lymphocytes Absolute Auto 2.7 X10*3/uL (1.2-4.9); Lymphocytes Percent Auto 32.5 % (20-40); Mean Corpuscular HGB Conc 33.3 g/dl (31.0-35.0); Mean Corpuscular Hemoglobin 28.8 pg (27.0-33.0); Mean Corpuscular Volume 86.5 fL (80.0-98.0); Mean Platelet Volume 11.2 fL (9.4-12.3); Monocytes Absolute Auto 0.8 X10*3/uL (0.1-1.2); Monocytes Percent Auto 9.3 % (2-11); Neutrophils Absolute Auto 4.8 x10*3/uL (2.0-8.3); Neutrophils Percent Auto 57.8 % (45-73); Platelet Count 222 X10*3/uL (160-400); Red Blood Count 4.96 X10*6/uL (4.20-5.50); Red Cell Distribution Width 12.3 % (11.0-16.0); White Blood Count 8.3 X10*3/uL (4.8-10.8)
[2023-09-02 11:25] LABS: Alanine Aminotransferase 21 U/L (0-31); Albumin Level 4.1 g/dL (3.5-5.0); Alkaline Phosphatase 71 U/L (39-117); Anion Gap 14 (12-20); Aspartate Amino Transferase 14 U/L (5-31); Bilirubin Total 0.6 mg/dL (0.0-1.0); Blood Urea Nitrogen 14 mg/dL (9-16); Calcium 9.6 mg/dL (8.4-10.2); Carbon Dioxide 25 mmol/L (22-29); Chloride 104 mmol/L (96-108); Cholesterol 182 mg/dL (<200); Estimated Glomerular Filt Rate > 60; Glucose Fasting 204 mg/dL (60-99); HDL Cholesterol 44 mg/dL (>40); LDL Cholesterol Calculated 107 mg/dL (<100); Sodium 139 mmol/L (135-145); Thyroid Stimulating Hormone 1.09 uIU/mL (0.32-4.0); Total Protein 6.9 g/dL (6.5-8.0); Triglycerides 155 mg/dL (<150); Vitamin D 25-OH Total 30.3 ng/mL (>30)
[2023-09-02 11:33] LABS: Creatinine Urine 118.08 mg/dL; Microalbum/Creatinine Ratio Ur 32.1 ug/mg cr (<30)
[2023-09-02 11:36] LABS: Vitamin B12 634 pg/mL (200-900)
== END 2023-09-02 09:34 | disposition home or self-care (01) ==
LOC: HO.LAB 09:33
PROVIDERS: PCP Internal Medicine; Visit Provider Internal Medicine
DX: G30.9 Alzheimer's disease, unspecified (principal); F02.80 Dementia in other diseases classified elsewhere, unspecified severity, without behavioral disturbance, psychotic disturbance, mood disturbance, and anxiety; E11.9 Type 2 diabetes mellitus without complications; E78.5 Hyperlipidemia, unspecified; E53.8 Deficiency of other specified B group vitamins; E55.9 Vitamin D deficiency, unspecified
CPT/HCPCS: 36415; 80053; 80061; 82043; 82306; 82570; 82607; 82746; 84443; 85025

== ENCOUNTER 2023-09-06 13:14 | Emergency (ER) | payer OTHER, SELFPAY ==
--- NOTE | 2023-09-06 13:21 | ED.GENADULT ---
HPI - General Adult General Chief complaint: Urogenital-Female Stated complaint: ?UTI Time Seen by Provider: 09/06/23 16:31 Source: patient Mode of arrival: ambulatory Limitations: no limitations History of Present Illness ED Provider: Jennie Dewitt HPI narrative: 77-year-old female with a history of diabetes presents with complaints of vaginal irritation, redness, rash and discomfort x several days. no flank pain, abdominal pain, urinary symptoms, fevers, chills, vomiting. Related Data Home Medications ?Medication ?Instructions ?Recorded ?Confirmed blood sugar diagnostic #10 ea 02/09/20 08/24/23 nystatin 100,000 unit/gram topical topical BID 02/09/20 08/24/23 cream omega-3 fatty acids-fish oil 340 1 cap PO DAILY 02/09/20 08/24/23 mg-1,000 mg capsule Previous Rx's ?Medication ?Instructions ?Recorded lancets 28 gauge (FreeStyle #100 ea 08/28/21 Lancets) lidocaine 5 % topical patch 1 patch topical DAILY 30 days #30 11/14/21 ea shoe inserts #2 ea 11/14/21 albuterol sulfate 90 mcg/actuation 2 puff PO Q4H PRN bronchospasm 90 12/14/21 aerosol inhaler days #8.5 grams fluticasone 113 mcg-salmeterol 14 1 inh PO BID 30 days #1 ea 12/14/21 mcg/actuation breath activated powdr hydrocortisone 2.5 % topical cream 1 appl topical TID PRN skin 12/14/21 irritation 90 days #30 grams ipratropium bromide 21 mcg (0.03 2 spray intranasal BID 90 days #30 12/14/21 %) nasal spray mL terconazole 0.8 % vaginal cream 1 appful vaginal BEDTIME 3 days 12/14/21 #20 grams alcohol swabs 1 pad topical BID 30 days #100 ea 08/01/22 blood sugar diagnostic (FreeStyle #100 ea 08/01/22 Lite Strips) blood-glucose meter (FreeStyle #1 ea 08/01/22 Lite Meter kit) calcium carbonate 600 mg-vitamin 1 tab PO DAILY 90 days #90 tabs 08/01/22 D3 10 mcg (400 unit) tablet cranberry 400 mg capsule 400 mg PO TID 90 days #270 caps 08/01/22 cyanocobalamin (vitamin B-12) 1,000 mcg PO DAILY 90 days #90 tabs 08/01/22 1,000 mcg tablet docusate calcium 240 mg capsule 480 mg (2 x 240 mg) PO DAILY 90 08/01/22 days #180 caps empagliflozin 25 mg tablet 25 mg PO QAM #90 tabs 08/01/22 (Jardiance) lisinopril 2.5 mg tablet 2.5 mg PO DAILY 90 days #90 tabs 08/01/22 metformin 1,000 mg tablet 1,000 mg PO BID 90 days #180 tabs 08/01/22 pen needle, diabetic 31 gauge x See Rx Instructions subcut 08/01/2209/02 (BD Ultra-Fine Short Pen .COMPLEX #100 ea Needle) rosuvastatin 40 mg tablet 40 mg PO DAILY 90 days #90 tabs 08/01/22 vitamin A 3,000 mcg (10,000 unit) 2 cap PO DAILY 90 days #180 caps 08/01/22 capsule vitamin E (dl, acetate) 180 mg 180 mg PO DAILY 90 days #90 caps 08/01/22 (400 unit) capsule Shower Chair #1 ea 08/11/22 tizanidine 2 mg tablet 2 mg PO TID PRN muscle spasticity 08/13/22 90 days #270 tabs blood-glucose meter (OneTouch #1 ea 09/03/22 Ultra2 Meter kit) donepezil 5 mg tablet 10 mg (2 x 5 mg) PO BEDTIME 30 09/03/22 days #60 tabs montelukast 10 mg tablet 10 mg PO DAILY 90 days #90 tabs 09/03/22 psyllium husk 3.4 gram/5.4 gram 1 tbsp PO BID 14 days #660 grams 09/03/22 oral powder (Metamucil) miscellaneous medical supply 1 ea miscellaneous .once a day 30 10/13/22 days #1 ea wipes #240 ea 10/13/22 blood sugar diagnostic (OneTouch #100 strips 02/02/23 Ultra Test strips) acyclovir 400 mg tablet 400 mg PO TID 7 days #21 tabs 07/29/23 albuterol sulfate 90 mcg/actuation 2 puff inhalation Q4-6H PRN 08/04/23 aerosol inhaler (Ventolin HFA) bronchospasm 30 days #6.7 grams aspirin 81 mg tablet,delayed 81 mg PO DAILY 90 days #90 tabs 08/04/23 release diabetic shoes with inserts #1 ea 08/04/23 oxycodone-acetaminophen 5 mg-325 1 tab PO BID PRN pain 7 days #14 08/04/23 mg tablet tabs selenium sulfide 1 % shampoo 1 appl topical BEDTIME PRN scalp 08/15/23 (Dandruff Shampoo (selenium dermatitis 30 days #207 mL sulfide)) dulaglutide 1.5 mg/0.5 mL 1.5 mg (0.5 mL) subcut QWEEK 30 08/24/23 subcutaneous pen injector days #2.5 mL (Trulicity) insulin glargine U-300 conc 300 30 unit (0.1 mL) subcut BEDTIME 30 08/24/23 unit/mL (1.5 mL) subcutaneous pen days #3 mL (Toujeo SoloStar U-300 Insulin) nystatin 100,000 unit/gram topical 1 appl topical BID PRN rash 30 08/24/23 powder days #30 grams venlafaxine 75 mg capsule,extended 75 mg PO DAILY 90 days #90 caps 09/01/23 release 24 hr etodolac 600 mg tablet,extended 600 mg PO DAILY 7 days #7 tabs 09/02/23 release 24 hr incontinence pad, liner, disp #180 ea 09/03/23 underpads (Bed Underpads) #100 ea 09/03/23 clotrimazole 1 % topical cream 1 appl topical BID 4 weeks #45 09/06/23 grams clotrimazole 2 % vaginal cream 1 appful vaginal BEDTIME 3 days 09/06/23 #21 grams Allergies Allergy/AdvReac Type Severity Reaction Status Date / Time No Known Allergies Allergy Verified 09/06/23 13:23 [No Known Allergies*] Review of Systems Review of Systems: Yes all other systems are reviewed and are negative Constitutional: Constitutional: Reports no additional constitutional complaints, Denies body ache(s), Denies chills, Denies fever(s), Denies headache(s) and Denies weakness Eyes: Eyes: Reports no additional eye complaints and Denies change in vision ENT: Reports system reviewed and no additional complaints, except as documented, Denies dizziness, Denies headache(s), Denies nasal congestion, Denies nasal discharge and Denies neck pain Cardiovascular: Cardiovascular: Reports no additional cardiovascular complaints, Denies chest pain, Denies leg edema and Denies dyspnea Respiratory: Respiratory: Reports no additional respiratory complaints, Denies cough and Denies dyspnea Gastrointestinal: Gastrointestinal: Reports no additional gastrointestinal complaints, Denies abdominal pain, Denies diarrhea, Denies nausea and Denies vomiting Genitourinary: Genitourinary: Reports no additional female genitourinary complaints, Denies dysuria, Denies pelvic pain, Denies flank pain, Denies urinary incontinence, Denies urinary hesitancy, Denies urinary urgency, Denies vaginal discharge, Denies vaginal dryness, Denies vaginal odor and Reports vaginal pruritus Musculoskeletal: Musculoskeletal: Reports no additional musculoskeletal complaints, Denies back pain, Denies arthralgias, Denies joint swelling, Denies neck pain, Denies numbness and Denies tingling Integumentary/Breasts: Skin/Breast: Reports system reviewed and no additional complaints, except as docu and Denies rash Neurologic: Reports system reviewed and no additional complaints, except as documented, Denies Abnormal speech present, Denies dizziness, Denies headache(s), Denies numbness, Denies tingling and Denies weakness PMFSH Past Medical History Attestation statement: The following information was validated with the patient. Source: old records reviewed and nursing notes reviewed Medical History Skin lesion Mixed hyperlipidemia Essential hypertension Left knee pain Left hip pain Left foot pain Unsteady gait Low back pain Spondylosis of lumbar region without myelopathy or radiculopathy Hypovitaminosis D Nausea Moderate asthma Fibromyalgia Diabetes mellitus B12 deficiency Surgical History History of right oophorectomy History of tubal ligation Family History Family History Father CVD (cardiovascular disease) Diabetes Mother Diabetes Hypertension CVD (cardiovascular disease) Sister Colon cancer Breast cancer Blind Uterine cancer Family/Other Mental health disorder Social History Social History Housing: Apartment Alcohol intake: never Patient Tobacco Use Status: Never used Tobacco e-Cigarette/Vaping Use: Never Used Second Hand Smoke Exposure: No Advance Directives: No Advance Directives Information Provided: No service: No Current occupational status: unemployed and disabled Cognitive needs: Yes Hearing needs: No Vision needs: Yes Physical Exam ED Vital Signs: Vital Signs - 24 hr 09/06/23 13:22 Temperature 97.7 F Pulse Rate 86 Respiratory Rate 16 Blood Pressure 121/71 Pulse Oximetry 94 Oxygen Delivery Method Room Air BMI result Body Mass Index 28.1 Const General: cooperative, healthy appearing, comfortable and no acute distress Orientation/consciousness: patient oriented x3 Limitations: no limitations HENMT Head: Yes normal to inspection Ears: hearing grossly normal bilaterally General nose exam: Normal external nose present Face and sinus: Yes normal facial exam Mouth: Normal oral and palatal mucosa present Throat: Yes posterior oropharynx normal Eyes General: appearance normal, both eyes and all related structures Pupils: Equal, round and reactive pupils present Neck Neck: Yes normal visual inspection Chest Chest palpation & inspection: normal inspection of the chest Resp Effort & Inspection: normal respiratory effort Auscultation: clear to auscultation bilaterally Cardio Rate: regular rate Rhythm: regular rhythm Peripheral pulses: Peripheral pulses 2+ throughout GI Inspection: Yes normal to inspection Palpation (GI): Soft to palpation and nontender Auscultation: normal bowel sounds Other: There is excoriation, erythema, mild swelling noted over the labia majora, labia minora and over the mons pubis. There is a scant vaginal discharge noted. There is no extension into the perineum. Back/Spine/Pelvis Thoracic/Lumbar Spine: thoracic and lumbar spine normal to inspection Skin General skin exam: no rashes or lesions noted Neuro General: patient oriented x3, no focal motor deficits and normal sensation to monofilament Cranial nerves: Yes Equal, round and reactive pupils present Cognition (Neuro): normal cognition Speech: No Abnormal speech present Gait exam (Neuro): Normal gait present Motor exam (neuro): 5/5 motor strength present throughout Extrem General: Yes normal to inspection Course Course Course Narrative: This is an RME performed by Mitzi Casarez CNP: Additional HPI, ROS, PE not included below will be deferred to primary provider. Patient is a 77-year-old female who presents emergency department for evaluation of dysuria, itching, malodorous urine for 2 days. Plan: urinalysis Medical Decision Making Medical Decision Making MDM Narrative: 77-year-old female with a history of diabetes presents with complaints of vaginal irritation, redness, rash and discomfort x several days. no flank pain, abdominal pain, urinary symptoms, fevers, chills, vomiting. There is excoriation, erythema, mild swelling noted over the labia majora, labia minora and over the mons pubis. There is a scant vaginal discharge noted. There is no extension into the perineum. This is consistent with Alisha patient will be treated appropriately. Differential Diagnosis Differential Diagnoses: The differential diagnosis associated with the presentation includes Skin yeast infection, Alisha low suspicion for UTI, Khadijah's gangrene, necrotizing fasciitis Admission/Observation Consideration of admission/observation: Escalation of care including admission/observation considered Lab Data [facility] Lab Attestation statement: I reviewed the patient's lab results. Labs: Lab Results 09/06/23 Range/Units 13:33 Urine Color Yellow Urine Appearance Clear Urine pH 6.0 (5.0-9.0) Ur Specific [place] 1.020 (1.005-1.025) Urine Protein Negative (Neg-Trace) mg/dL Urine Glucose (UA) 500 H (Negative) mg/dL Urine Ketones Negative (Negative) mg/dL Urine Blood Negative (Negative) Urine Nitrite Negative (Negative) Ur Leukocyte Esterase Negative (Negative) Independent Historian Clinical information obtained from an independent historian. History obtained from or confirmed by: Other (granddaughter) Prescription Management I considered prescription management with: Antibiotic Discharge Plan Discharge Clinical Impression: Vulvovaginal candidiasis Patient Disposition: Home, Self-Care Instructions: Yeast Infection (ED) Prescriptions: New clotrimazole 2 % cream 1 appful vaginal BEDTIME 3 Days Qty: 21 0RF clotrimazole 1 % cream 1 appl topical BID 28 Days Qty: 45 0RF No Action (DME) lancets [FreeStyle Lancets] 28 gauge misc See Rx Instructions .ROUTE .MEDSUPPLY Qty: 100 11RF Rx Instructions: Three times a day lidocaine 5 % adhesive patch,medicated 1 patch topical DAILY 30 Days Qty: 30 6RF (DME) shoe inserts 7 See Rx Instructions .Route .MEDSUPPLY Qty: 2 1RF Rx Instructions: As directed albuterol sulfate 90 mcg/actuation HFA aerosol inhaler 2 puff PO Q4H PRN (Reason: bronchospasm) 90 Days Qty: 8.5 2RF fluticasone propion-salmeterol 113-14 mcg/actuation aerosol powdr breath activated 1 inh PO BID 30 Days Qty: 1 6RF ipratropium bromide 21 mcg (0.03 %) spray,non-aerosol 2 spray intranasal BID 90 Days Qty: 30 3RF Rx Instructions: administer into each nostril terconazole 0.8 % cream 1 appful vaginal BEDTIME 3 Days Qty: 20 0RF hydrocortisone 2.5 % cream 1 appl topical TID PRN (Reason: skin irritation) 90 Days Qty: 30 1RF alcohol swabs Pads, Medicated 1 pad topical BID 30 Days Qty: 100 1RF (DME) FreeStyle Lite Strips Strip See Rx Instructions .ROUTE .MEDSUPPLY Qty: 100 11RF Rx Instructions: As directed three times a day (DME) blood-glucose meter [FreeStyle Lite Meter] Kit See Rx Instructions .ROUTE .MEDSUPPLY Qty: 1 0RF Rx Instructions: As directed 3x/day calcium carbonate-vitamin D3 600 mg-10 mcg (400 unit) tablet 1 tab PO DAILY 90 Days Qty: 90 3RF cranberry 400 mg capsule 400 mg PO TID 90 Days Qty: 270 1RF cyanocobalamin (vitamin B-12) 1,000 mcg tablet 1,000 mcg PO DAILY 90 Days Qty: 90 3RF docusate calcium 240 mg capsule 480 mg PO DAILY 90 Days Qty: 180 3RF Jardiance 25 mg tablet 25 mg PO QAM Qty: 90 3RF lisinopril 2.5 mg tablet 2.5 mg PO DAILY 90 Days Qty: 90 3RF metformin 1,000 mg tablet 1,000 mg PO BID 90 Days Qty: 180 1RF pen needle, diabetic [BD Ultra-Fine Short Pen Needle] 31 gauge x 5/16 needle See Rx Instructions subcut .COMPLEX Qty: 100 2RF Rx Instructions: subcut daily; rosuvastatin 40 mg tablet 40 mg PO DAILY 90 Days Qty: 90 1RF vitamin A 3,000 mcg (10,000 unit) capsule 2 cap PO DAILY 90 Days Qty: 180 1RF vitamin E (dl, acetate) 180 mg (400 unit) capsule 180 mg PO DAILY 90 Days Qty: 90 3RF tizanidine 2 mg tablet 2 mg PO TID PRN (Reason: muscle spasticity) 90 Days Qty: 270 1RF (DME) blood-glucose meter [OneTouch Ultra2 Meter] Kit See Rx Instructions .Route Qty: 1 0RF Rx Instructions: test 3xs per day montelukast 10 mg tablet 10 mg PO DAILY 90 Days Qty: 90 3RF Metamucil 3.4 gram/5.4 gram powder 1 tbsp PO BID 14 Days Qty: 660 0RF Rx Instructions: mix into at least 8 oz of water or juice before administering donepezil 5 mg tablet 10 mg PO BEDTIME 30 Days Qty: 60 1RF miscellaneous medical supply Kit 1 ea miscellaneous .once a day 30 Days Qty: 1 11RF (DME) wipes See Rx Instructions .Route .MEDSUPPLY Qty: 240 11RF Rx Instructions: As directed (DME) OneTouch Ultra Test Strip See Rx Instructions .ROUTE .COMPLEX Qty: 100 0RF Dose Instruction: DIRECTED TO TEST BLOOD SUGAR THREE TIMES DAILY Rx Instructions: DIRECTED TO TEST BLOOD SUGAR THREE TIMES DAILY acyclovir 400 mg tablet 400 mg PO TID 7 Days Qty: 21 3RF albuterol sulfate [Ventolin HFA] 90 mcg/actuation HFA aerosol inhaler 2 puff inhalation Q4-6H PRN (Reason: bronchospasm) 30 Days Qty: 6.7 6RF aspirin 81 mg tablet,delayed release (DR/EC) 81 mg PO DAILY 90 Days Qty: 90 3RF oxycodone-acetaminophen 5-325 mg tablet 1 tab PO BID PRN (Reason: pain) 7 Days Qty: 14 0RF Rx Instructions: Partial Fill upon patient request. (DME) diabetic shoes with inserts 7 See Rx Instructions .Route .MEDSUPPLY Qty: 1 1RF Rx Instructions: As directed Dandruff Shampoo (selenium) 1 % shampoo 1 appl topical BEDTIME PRN (Reason: scalp dermatitis) 30 Days Qty: 207 2RF Rx Instructions: massage into affected area; leave on for 10 mins ; rinse off thoroughly venlafaxine 75 mg capsule,extended release 24hr 75 mg PO DAILY 90 Days Qty: 90 1RF etodolac 600 mg tablet extended release 24 hr 600 mg PO DAILY 7 Days Qty: 7 0RF (DME) incontinence pad, liner, disp Pad See Rx Instructions .Route Qty: 180 11RF Rx Instructions: Use 1 pad prn 6 times per day (DME) underpads [Bed Underpads] Pad See Rx Instructions .Route Qty: 100 11RF Rx Instructions: Use 3 to 4 underpads daily prn nystatin 100,000 unit/gram cream topical BID (DME) FreeStyle Lite Strips Strip See Rx Instructions Not Applicable QID Qty: 10 Rx Instructions: As directed Fish Oil 340-1,000 mg capsule 1 cap PO DAILY (DME) Shower Chair Misc See Rx Instructions .Route Qty: 1 0RF Rx Instructions: As directed Shanna Matos U-300 Insulin 300 unit/mL (1.5 mL) insulin pen 30 unit subcut BEDTIME 30 Days Qty: 3 6RF Trulicity 1.5 mg/0.5 mL pen injector 1.5 mg subcut QWEEK 30 Days Qty: 2.5 1RF nystatin 100,000 unit/gram powder 1 appl topical BID PRN (Reason: rash) 30 Days Qty: 30 0RF Referrals: Chani Salguero MD [Primary Care Provider] - 1 week Print Language: Indonesian
[2023-09-06 13:22] VITALS: BP 121/71; PULSE 86; RESP 16; TEMP 36.5; O2SAT 94; BMI 28.1
[2023-09-06 13:42] LABS: Appearance Urine Clear; Color Urine Yellow; Glucose Urine UA 500 mg/dL (Negative); Leukocyte Esterase Urine Negative (Negative); Nitrite Urine Negative (Negative); Urine Blood Negative (Negative); Urine Ketones Negative (Negative); Urine Protein Negative (Neg-Trace)
[2023-09-06 17:22] VITALS: BP 122/70; PULSE 56; O2SAT 99
[2023-09-06 17:29] VITALS: BP 125/78; PULSE 86; RESP 18; TEMP 36.7; O2SAT 96
== END 2023-09-06 17:31 | disposition home or self-care (01) ==
PROVIDERS: Nurse Practitioner Family; Emergency Provider Internal Medicine; PCP Internal Medicine
DX: B37.31 Acute candidiasis of vulva and vagina (principal); N89.8 Other specified noninflammatory disorders of vagina; I10 Essential (primary) hypertension; E78.2 Mixed hyperlipidemia; E11.8 Type 2 diabetes mellitus with unspecified complications; Z79.4 Long term (current) use of insulin; Z79.84 Long term (current) use of oral hypoglycemic drugs; Z79.82 Long term (current) use of aspirin
CPT/HCPCS: 81003; 99283

== ENCOUNTER 2024-12-02 10:55 | Outpatient (AMB) | payer OTHER, SELFPAY ==
--- OUTSIDE RECORDS SUMMARY | 2024-12-02 11:01 | XMS_ITS | Clinical Summary ---
Author Organization [facility] Address [address] [facility] [address] [place] [address] Phone Care Team Providers Care Insulation Worker Apprentice Name Role Phone Chani Salguero MD Primary Care Provider [phone] Allergies No known active allergies Medications aspirin (ST MARKO) 81 MG EC tablet Take 1 tablet by mouth 1 (one) time each day Active calcium carbonate (OS-OSEAS) 600 MG tablet Take Active Dulaglutide (Trulicity) 0.75 MG/0.5ML solution pen-injector Active montelukast (Singulair) 10 MG tablet Comments: Filled Date: Dec 06 2010 12:00AM Duration: 30 Active ondansetron (Zofran) 8 MG tablet Take 1 tablet by mouth 2 (two) times a day Active traZODone (DESYREL) 300 MG tablet Take 300 mg by mouth every night Active venlafaxine XR (EFFEXOR-XR) 75 MG 24 hr capsule Take 1 capsule by mouth 1 (one) time each day Active Vitamin A 2400 MCG (8000 UT) capsule Take Active Vitamin E 400 units tablet Take Active Vitamin E Complex 400 units capsule Take by mouth 1 (one) time each day 1 Active terconazole (TERAZOL 3) 0.8 % vaginal cream APPLY 1 APPLICATORFUL VAGINALLY AT BEDTIME FOR 3 DAYS 1 Active rosuvastatin (CRESTOR) 20 MG tablet Take 20 mg by mouth 1 (one) time each day 1 Active oxyCODONE-acet aminophen (PERCOCET) 5-325 MG per tablet Take 1 tablet by mouth every 12 (twelve) hours if needed 1 Active omeprazole (PriLOSEC) [address] capsule TAKE 1 CAPSULE BY MOUTH TWICE DAILY BEFORE A MEAL 1 Active Myrbetriq 25 MG tablet sustained-rele ase 24 hour Take 1 tablet by mouth 1 (one) time each day 1 Active metFORMIN (GLUCOPHAGE) 1000 MG tablet Take 1,000 mg by mouth 1 (one) time each day 1 Active lisinopril (PRINIVIL,ZEST RIL) 2.5 MG tablet Take 2.5 mg by mouth 1 (one) time each day 1 Active Lancets (freestyle) lancets TEST FOUR TIMES DAILY TO 6 TIMES A DAY 1 Active BD Pen Needle Morena 2nd Gen 32G X 4 MM misc USE ONCE A DAY 1 Active folic acid (FOLVITE) 1 MG tablet Take 1,000 mcg by mouth 1 (one) time each day 1 Active Fluticasone-Sa lmeterol 113-14 MCG/ACT aerosol powder INHALE 1 PUFF BY MOUTH TWICE DAILY 12 HOURS APART AT THE SAME TIME EACH DAY 1 Active fluticasone (FLONASE) 50 MCG/ACT nasal spray SHAKE LIQUID AND USE 1 SPRAY IN EACH NOSTRIL EVERY DAY 1 Active fluconazole (DIFLUCAN) 150 MG tablet TAKE 1 TABLET BY MOUTH THEN REPEAT IN 72 HOURS 1 Active estradiol (ESTRACE) 0.1 MG/GM vaginal cream USE 1 GRAM VAGINALLY 2 TIMES EVERY WEEK AT BEDTIME 1 Active Stool Softener 250 MG capsule TAKE 2 CAPSULES BY MOUTH EVERY DAY NEEDED 1 Active cyanocobalamin (VITAMIN B-12) 1000 MCG tablet Take 1,000 mcg by mouth 1 (one) time each day 1 Active D-5000 125 MCG (5000 UT) tablet Take 1 tablet by mouth 1 (one) time each day 1 Active cetirizine (ZyrTEC) 10 MG tablet Take 10 mg by mouth 1 (one) time each day 1 Active Alcohol Swabs (B-D SINGLE USE SWABS REGULAR) pads USE TOPICALLY TWICE DAILY 1 Active acyclovir (ZOVIRAX) 400 MG tablet TAKE 1 TABLET BY MOUTH THREE TIMES DAILY FOR 7 DAYS 1 Active Ventolin HFA 108 (90 Base) MCG/ACT inhaler 07/07/202 1 Active tiZANidine (ZANAFLEX) 2 MG tablet Take 2 mg by mouth 3 (three) times a day Active Empagliflozin (Jardiance) 25 MG tablet Take 1 tablet by mouth 1 (one) time each day Active Active Problems Problem Noted Date Diagnosed Date Renal stone 08/22/2020 Essential hypertension 08/22/2020 Social History Tobacco Use Types Packs/Day Years Used Date Smoking Tobacco: Never Smokeless Tobacco: Never Alcohol Use Standard Drinks/Week Comments No 0 (1 standard drink = 0.6 oz pur e alcohol) Comments Unknown Sex and Gender Information Value Date Recorded Sex Assigned at Not on file Legal Sex Female 5:12 PM EST Gender Identity Not on file Sexual Orientation Not on file Last Filed Vital Signs Vital Sign Reading Time Taken Comments Blood Pressure 122/80 12/14/2020 3:29 PM EDT Pulse 60 06/22/2018 12:00 PM EST Temperature - - Respiratory Rate - - Oxygen Saturation - - Inhaled Oxygen Concentration - - Weight 66.4 kg (146 lb 6.4 oz) 12/14/2020 3:29 P M EDT Height 147.3 cm (4' 10 ) 06/22/2018 12:00 PM EST Body Mass Index 30.6 06/22/2018 12:00 PM EST Plan of Treatment Health Maintenance Due Date Last Done Comments Pneumococcal Vaccine: 50+ Ye ars (1 of 1 - PCV) 10/01/1995 Influenza Vaccine (#1) 2024 Hepatitis B Vaccine Aged Out No longe r eligible based on patient's age to complete this topic Insurance [facility] ([id number]) [facility] ([id number]) Care Teams Insulation Worker Apprentice Relationship Specialty Start Date End Date Chani Salguero MD [address] [place], [place] PCP - General 04/30/20
--- OUTSIDE RECORDS SUMMARY | 2024-12-02 11:01 | XMS_ITS | Clinical Summary ---
Author Organization [employer] Address [address] [facility] [address] [place] [address] Care Team Providers Care Recruitment Intern Name Role Phone Unavailable Primary Care Provider Unavailabl e Allergies Active Allergy Reactions Criticality Noted Date Comments Baclofen Unknown 10/02/2014 Other reaction(s): Nausea Metronidazole Unknown 08/14/2011 Medications lisinopril (Prinivil, Zestril) 10 MG split tablet Take 1 tablet by mouth at bed time. 0 Active acetaminophen (Tylenol) 325 MG tablet Take 1 tablet by mouth every 4 (four) hours. 2 Active acyclovir (Zovirax) 5 % ointment apply by topical route 3 times a day 7 Active albuterol (2.5 MG/3ML) 0.083% nebulizer solution inhale 3 milliliter by nebulization route 4 times every day prn as needed 7 Active albuterol (Ventolin HFA) 108 (90 Base) MCG/ACT inhaler Inhale 2 puffs every 4 (four) hours if needed. 0 Active aspirin 81 MG EC tablet take 1 tablet (81MG) by oral route every day 0 Active cetirizine (ZyrTEC) 10 MG tablet Take 1 tablet by mouth at bed time. 1 Active cholecalciferol (D3-5) 5,000 Units tablet Take 1 capsule by mouth in the morning. 0 Active clobetasol (Temovate) 0.05 % cream Apply topically at bed time. 0 Active Cranberry-Vitam in C-Probiotic (AZO Cranberry) 250-30 MG tablet 1 tablet PO 3 times daily 0 Active cyanocobalamin (Vitamin B-12) 1000 MCG tablet Take 1 tablet by mouth in the morning. 0 Active Diclofenac Sodium (Voltaren) 1 % gel Apply 2 g topically in the morning and 2 g at noon and 2 g in the evening. 1 Active docusate calcium (Surfak) 240 MG capsule Take 2 capsules by mouth at bed time. 0 Active donepezil (Aricept) 5 MG tablet Take 1 tablet by mouth at bed time. Active dulaglutide (Trulicity) 0.75 MG/0.5ML solution pen-injector inject 0.5 milliliter by subcutaneous route every week in the abdomen, thigh, or upper arm rotating injection sites 0 Active empagliflozin (Jardiance) 25 MG Take 1 tablet by mouth at bed time. 0 Active etodolac XL (Lodine XL) 600 MG 24 hr tablet take 1 tablet by oral route once a day as needed for pain, take with food 0 Active fluticasone (Flonase) 50 MCG/ACT nasal spray spray 1 spray by intranasal route every day in each nostril 0 Active fluticasone-katya meterol (AirDuo RespiClick) 113-14 MCG/ACT inhaler Inhale 1 puff every 12 (twelve) hours. 0 Active folic acid (Folvite) 1 MG tablet Take 1 tablet by mouth at bed time. 0 Active glucose blood (FREESTYLE LITE) test strip Check BG 4-6 times daily 0 Active insulin glargine (Toujeo Max SoloStar) 300 UNIT/ML injection inject by subcutaneous route 17 units every morning 0 Active lidocaine (Lidoderm) 5 % patch Place 1 patch on the skin at bed time. 7 Active chlorhexidine (Peridex) 0.12 % solution Swish 15 mL morning and night for 1 minute. Spit, do not swallow. Do not eat or drink for 30 minutes following use. 473 mL 4 Active acetaminophen (Tylenol) 500 MG tablet Take 1 tablet (500 mg) by mouth every 6 (six) hours if needed for mild pain for up to 20 doses. 20 tablet Active chlorhexidine (Peridex) 0.12 % solutionIndicat ions:Periodonta l disease Swish 15 mL morning and night for 1 minute. Spit, do not swallow. Do not eat or drink for 30 minutes following use. 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 Social History Tobacco Use Types Packs/Day Years Used Date Smoking Tobacco: Never Smokeless Tobacco: Never Tobacco Cessation:Counseling Given: Not Answered Alcohol Use Standard Drinks/Week Comments Never 0 (1 standard drink = 0.6 oz pur e alcohol) Comments Unknown Sex and Gender Information Value Date Recorded Sex Assigned at Female 02/17/2022 10:15 AM EDT Legal Sex Female 10:15 AM EDT Gender Identity Female 02/17/2022 10:15 AM EDT Sexual Orientation Straight 02/17/2022 10 :15 AM EDT Last Filed Vital Signs Vital Sign Reading Time Taken Comments Blood Pressure 130/72 08/21/2023 2:47 PM EDT Pulse 68 08/21/2023 2:47 PM EDT Temperature - - Respiratory Rate - - Oxygen Saturation - - Inhaled Oxygen Concentration - - Weight 66.8 kg (147 lb 3.2 oz) 12/17/2020 12:08 AM EDT Height - - Body Mass Index - - Plan of Treatment Health Maintenance Due Date Last Done Comments Dental Oral Exam 1945 Dental Prophylaxis 1945 Dental X-Ray: Bitewings 1945 Dental X-Ray: Full Mouth 1945 Depression Screening 1945 Lipid Panel 1945 SDOH Screening 1945 Alcohol/Substance Use Screening 1957 Hepatitis C Screening 10/01/1963 Zoster Vaccines (2 of 3) 06/13/2011 04/18/2011 RSV Patients and Patients Aged 60 years or older (1 - 1-dose 75+ series) 2020 DTaP/Tdap/Td Vaccines (4 - Td or Tdap) 10/17/2023 10/16/2013, 10/16/2013, 07/14/2011, Additional history exists COVID-19 Vaccine ( season) 2023 07/30/2020, 07/02/2020 Tobacco Screening 08/20/2024 08/21/2023 Influenza Vaccine (#1) 2024 0, 03/02/2019, 01/20/2018, Additional history exists Hepatitis B Vaccines Completed 02/23/2006, 10/09/2005, 09/08/2005 Pneumococcal Vaccine: 50+ Years Completed 09/22/2018, 08/03/2014, 11/03/2013, Additional history exists HIB Vaccines Aged Out No longer eligi ble based on patient's age to complete this topic HPV Vaccines Aged Out No longer eligi ble based on patient's age to complete this topic Hepatitis A Vaccines Aged Out No long er eligible based on patient's age to complete this topic IPV Vaccines Aged Out No longer eligi ble based on patient's age to complete this topic Meningococcal B Vaccine Aged Out No l onger eligible based on patient's age to complete this topic Meningococcal Vaccine Aged Out No stone zohaib eligible based on patient's age to complete this topic RSV under 20 months Aged Out No longe r eligible based on patient's age to complete this topic Rotavirus Vaccines Aged Out No longer eligible based on patient's age to complete this topic [place] [address] [place] [id number]
--- NOTE | 2024-12-02 11:33 | MHC.OFFWIV ---
Intake Vital Signs 12/02/24 11:34 Height 4 ft 10 in Weight 134 lb BMI 28.0 BP 116/64 Blood Pressure Location Rt brachial Position Sitting Pulse 99 Pulse Source Pulse Oximeter Temp 98.5 F Temp Source Oral Pulse Oximetry (%) 97 Oxygen Delivery Method Room Air Intake Visit Reasons: EP-cough, body ache, red eyes Intake Note: presents with non productive cough, sinus congestion, body aches, red eyes Patient Tobacco Use Status: Never used Tobacco Allergies No Known Allergies (No Known Allergies*) Allergy (Verified 12/02/24 11:37) Do you need a note to return to daycare/school/sports/work: No HPI HPI Comments History of Present Illness Details This is a 79-year-old Tajik-speaking female with a past medical history of dementia, insulin-dependent diabetes and hyperlipidemia presenting with her daughter, who serves as her human resource management instructor, for evaluation of cough and chest congestion that she has had for the past 1 week. Patient reports body aches, nonproductive cough and intermittent redness in her right eye without visual changes or discharge. Patient denies having any fevers, chills, otalgia, sore throat, chest pain or shortness for breath. [facility] Medical History Skin lesion Mixed hyperlipidemia Essential hypertension Left knee pain Left hip pain Left foot pain Unsteady gait Low back pain Spondylosis of lumbar region without myelopathy or radiculopathy Hypovitaminosis D Nausea Moderate asthma Fibromyalgia Diabetes mellitus B12 deficiency Surgical History History of right oophorectomy History of tubal ligation Family History Father CVD (cardiovascular disease) Diabetes Mother Diabetes Hypertension CVD (cardiovascular disease) Sister Colon cancer Breast cancer Blind Uterine cancer Family/Other Mental health disorder Social History Housing: Apartment Alcohol intake: never Patient Tobacco Use Status: Never used Tobacco e-Cigarette/Vaping Use: Never Used Second Hand Smoke Exposure: No service: No Current occupational status: unemployed and disabled Cognitive needs: Yes Hearing needs: No Vision needs: Yes Review of Systems Const All systems reviewed & are unremarkable except as noted in HPI and below Reports no additional complaints, Reports body aches, Denies chills, Denies fatigue, Denies fever(s) and Denies headache(s) Eyes Reports no additional complaints, Denies change in vision, Denies eye discharge, Reports irritation (right eye), Denies itchy eyes, Denies seeing flashes, Denies photophobia and Denies spots in vision ENT Reports no additional complaints, Denies otalgia, Denies headache(s), Denies sinus pain, Denies sinus pressure and Denies sore throat Card Denies chest pain and Denies dyspnea Resp Reports cough, Denies hemoptysis, Denies pain with cough and Denies dyspnea GI Denies diarrhea, Denies nausea and Denies vomiting Musc Reports myalgias Skin/Breast Reports system reviewed and no additional complaints, except as documented Neuro Denies confusion and Denies headache(s) Psych Reports no additional complaints and Denies confusion Endo Reports no additional complaints and Denies fatigue Aller/Immun Denies itchy eyes Physical Exam Vital Signs: Last Vital Signs Temp 98.5 F 12/02/24 11:34 Pulse 99 12/02/24 11:34 BP 116/64 12/02/24 11:34 Pulse Ox 97 12/02/24 11:34 Oxygen Delivery Method Room Air 12/02/24 11:34 BMI result Body Mass Index 28.0 Const General: cooperative, healthy appearing, comfortable, no acute distress, well developed, alert, awake and Physically active; No acute distress, confusion, ill appearing, lethargic or patient obtunded Nutritional Appearance: well nourished Orientation/consciousness: oriented to person, oriented to place, No oriented to time, No confusion, No patient obtunded and No lethargic Limitations: language barrier (daughter interprets during interview and examination) HEENT Head: Yes normal to inspection and Yes normocephalic Ears: hearing grossly normal bilaterally, external ears normal, TM's normal bilaterally and EAC's normal General nose exam: Normal external nose present Mouth: Normal oral and palatal mucosa present Throat: Yes posterior oropharynx normal and No postnasal drainage Eyes Other: There is mild injection of the right conjunctiva, no retained foreign body, discharge or photophobia Visual Owens: normal visual owens by confrontation Alignment and Position: alignment normal Periorbital: periorbital findings normal Eyelids: Yes eyelids normal Conjunctivae: conjunctival abnormal Pupils: Equal, round and reactive pupils present EOM: EOMs intact bilaterally Direct Ophthalmoscopy: normal light reflex, no photophobia and No photophobia Neck Lymphatic: no lymphadenopathy noted Resp Effort & Inspection: normal respiratory effort, able to speak in complete sentences, no cough, not labored, no nasal flaring and no respiratory distress Auscultation: clear to auscultation bilaterally, no crackles and no wheezes Cardio Rate: regular rate Rhythm: regular rhythm Skin General skin exam: no rashes or lesions noted Neuro General: oriented to person, oriented to place, No oriented to time, No confusion and No patient obtunded Cranial nerves: Yes Equal, round and reactive pupils present Psych Appearance: grossly normal Mental Status: mental status grossly normal Insight: Good insight present (Psych) Judgement: Good judgement present (Psych) Assessment & Plan Assessment & Plan (1) Acute upper respiratory infection: Comment: Patient is well-appearing and in no acute distress. SARS panel is ordered and results are pending at this time. Imaging is deferred as she is not tachypneic, tachycardic and lungs are clear to auscultation bilaterally. Code(s): J06.9 - Acute upper respiratory infection, unspecified Plan: Mucinex OTC with increased clear fluids daily. Orders: Orders SARS-CoV2/FLU/RSV Today J06.9 - Acute upper respiratory infection, unspecified Coding Level of Care Code Est Pt Level 3 (00295) Diagnoses Acute upper respiratory infection J06.9 Time Spent (min) 20
[2024-12-02 11:34] VITALS: BP 116/64; PULSE 99; TEMP 36.9; O2SAT 97; BMI 28.0
== END 2024-12-02 12:28 | disposition home or self-care (01) ==
PROVIDERS: PCP Internal Medicine; Visit Provider Physician Assistant
DX: J06.9 Acute upper respiratory infection, unspecified (principal)

== ENCOUNTER 2024-12-02 10:55 | Outpatient (REF) | payer OTHER, SELFPAY ==
[2024-12-02 13:48] LABS: Resp Syncy Virus RNA Qual PCR NEGATIVE (Negative); SARS COV2 PCR INHOUSE NEGATIVE (Negative)
== END 2024-12-02 10:56 | disposition home or self-care (01) ==
LOC: HO.LNP 10:55
PROVIDERS: PCP Internal Medicine; Visit Provider Physician Assistant
DX: J06.9 Acute upper respiratory infection, unspecified (principal)
CPT/HCPCS: 87637; 99212

== ENCOUNTER 2024-12-06 11:27 | Emergency (ER) | payer OTHER, SELFPAY ==
--- NOTE | ~2024-12-06 | CT_ITS ---
CLINICAL HISTORY: abd pain CT abdomen and pelvis with contrast Comparison: None provided Findings: No consolidation or effusion. Fatty infiltration of the liver. Liver is mildly enlarged. Portal vein is patent. Gallbladder, spleen, adrenal glands and pancreas are unremarkable. There are multiple bilateral renal cysts. No hydronephrosis. No ureteral stones. No bowel obstruction, pneumoperitoneum, or pneumatosis. There are extensive colonic diverticula, however no evidence of diverticulitis. Appendix not visualized. No inflammatory change in the region of the cecum. The uterus is either surgically absent or markedly atrophied. Multilevel degenerative change of the lumbar spine. No lytic or blastic bone lesions. IMPRESSION: No acute findings. Hepatic steatosis and mild hepatomegaly. Extensive diverticulosis without evidence of diverticulitis. This document has been electronically signed by: Tremaine Pitts MD on 12/06/2024 20:00:14
--- NOTE | ~2024-12-06 | XR_ITS ---
CLINICAL HISTORY: Shortness of breath 2 view chest x-ray Comparison: None provided Findings: Mildly elevated right hemidiaphragm. No consolidation or pleural effusion. Normal heart size. Tortuous aorta. No acute fracture. IMPRESSION: Mild elevation of the right hemidiaphragm. This document has been electronically signed by: Ann Villalobos MD on 12/06/2024 18:30:42
[2024-12-06 11:39] VITALS: BP 148/95; PULSE 87; RESP 18; TEMP 36.7; O2SAT 96; BMI 27.8
--- NOTE | 2024-12-06 11:43 | ED.ABDPAIN ---
HPI - Abdominal Pain General Chief Complaint: Abdominal Pain Stated Complaint: Abd pain, eye irritation Time Seen by Provider: 12/06/24 17:28 Related Data Home Medications ?Medication ?Instructions ?Recorded ?Confirmed blood sugar diagnostic #10 ea 02/09/20 08/24/23 omega-3 fatty acids-fish oil 340 1 cap PO DAILY 02/09/20 08/24/23 mg-1,000 mg capsule docusate calcium 240 mg capsule 100 mg PO DAILY 12/02/24 insulin glargine U-300 conc 300 25 unit subcut BEDTIME 12/02/24 unit/mL (1.5 mL) subcutaneous pen (Toujeo SoloStar U-300 Insulin) Previous Rx's ?Medication ?Instructions ?Recorded shoe inserts #2 ea 11/14/21 albuterol sulfate 90 mcg/actuation 2 puff PO Q4H PRN bronchospasm 90 12/14/21 aerosol inhaler days #8.5 grams alcohol swabs 1 pad topical BID 30 days #100 ea 08/01/22 blood-glucose meter (FreeStyle #1 ea 08/01/22 Lite Meter kit) metformin 1,000 mg tablet 1,000 mg PO BID 90 days #180 tabs 08/01/22 Shower Chair #1 ea 08/11/22 blood-glucose meter (OneTouch #1 ea 09/03/22 Ultra2 Meter kit) psyllium husk 3.4 gram/5.4 gram 1 tbsp PO BID 14 days #660 grams 09/03/22 oral powder (Metamucil) miscellaneous medical supply 1 ea miscellaneous .once a day 30 10/13/22 days #1 ea blood sugar diagnostic (OneTouch #100 strips 02/02/23 Ultra Test strips) diabetic shoes with inserts #1 ea 08/04/23 clotrimazole 1 % topical cream 1 appl topical BID 4 weeks #45 09/06/23 grams underpads (Bed Underpads) #100 ea 09/09/23 incontinence pad, liner, disp #180 ea 09/10/23 latex gloves (Latex Gloves, Medium) #104 ea 09/10/23 wipes #240 ea 09/10/23 donepezil 5 mg tablet 10 mg (2 x 5 mg) PO BEDTIME 30 11/13/23 days #60 tabs calcium 600 mg (as 1 tab PO DAILY 90 days #90 tabs 02/09/24 carbonate)-vitamin D3 10 mcg (400 unit) tablet clotrimazole 2 % vaginal cream 1 appful vaginal BEDTIME 3 days 02/09/24 #21 grams cyanocobalamin (vitamin B-12) 1,000 mcg PO DAILY 90 days #90 tabs 02/09/24 1,000 mcg tablet empagliflozin 25 mg tablet 25 mg PO QAM #90 tabs 02/09/24 (Jardiance) ipratropium bromide 21 mcg (0.03 2 spray intranasal BID 90 days #30 02/09/24 %) nasal spray mL lisinopril 2.5 mg tablet 2.5 mg PO DAILY 90 days #90 tabs 02/09/24 nystatin 100,000 unit/gram topical 1 appl topical BID PRN rash 30 02/09/24 powder days #30 grams vitamin A 3,000 mcg (10,000 unit) 2 cap PO DAILY 90 days #180 caps 02/09/24 capsule vitamin E (dl, acetate) 180 mg 180 mg PO DAILY 90 days #90 caps 02/09/24 (400 unit) capsule dulaglutide 1.5 mg/0.5 mL 1.5 mg (0.5 mL) subcut QWEEK 30 06/03/24 subcutaneous pen injector days #2.5 mL (Trulicity) rosuvastatin 40 mg tablet 40 mg PO DAILY 90 days #90 tabs 08/15/24 albuterol sulfate 90 mcg/actuation 2 puff inhalation Q4-6H PRN 10/20/24 aerosol inhaler (Ventolin HFA) bronchospasm 30 days #6.7 grams aspirin 81 mg tablet,delayed 81 mg PO DAILY 90 days #90 tabs 10/20/24 release blood sugar diagnostic (FreeStyle #100 ea 10/20/24 Lite Strips) cranberry fruit 400 mg capsule 400 mg PO TID 90 days #270 caps 10/20/24 fluticasone 113 mcg-salmeterol 14 1 inh PO BID 30 days #1 ea 10/20/24 mcg/actuation breath activated powdr hydrocortisone 2.5 % topical cream 1 appl topical TID PRN skin 10/20/24 irritation 90 days #30 grams lancets 28 gauge (FreeStyle #100 ea 10/20/24 Lancets) lidocaine 5 % topical patch 1 patch topical DAILY 30 days #30 10/20/24 ea montelukast 10 mg tablet 10 mg PO DAILY 90 days #90 tabs 10/20/24 pen needle, diabetic 31 gauge x See Rx Instructions subcut 11/16/24 5/16 .COMPLEX #100 ea terconazole 0.8 % vaginal cream 1 appful vaginal BEDTIME 3 days 11/16/24 #20 grams tizanidine 2 mg tablet 2 mg PO TID PRN muscle spasticity 11/16/24 90 days #270 tabs venlafaxine 75 mg capsule,extended 75 mg PO DAILY 90 days #90 caps 11/16/24 release 24 hr etodolac 600 mg tablet,extended 600 mg PO DAILY 7 days #7 tabs 12/05/24 release 24 hr acetaminophen 500 mg capsule 1,000 mg (2 x 500 mg) PO Q8H PRN 12/06/24 pain #30 caps Allergies Allergy/AdvReac Type Severity Reaction Status Date / Time No Known Allergies (No Known Allergy Verified 12/06/24 11:41 Allergies*) [facility] Past Medical History Medical History Skin lesion Mixed hyperlipidemia Essential hypertension Left knee pain Left hip pain Left foot pain Unsteady gait Low back pain Spondylosis of lumbar region without myelopathy or radiculopathy Hypovitaminosis D Nausea Moderate asthma Fibromyalgia Diabetes mellitus B12 deficiency Surgical History History of right oophorectomy History of tubal ligation Family History Family History Father CVD (cardiovascular disease) Diabetes Mother Diabetes Hypertension CVD (cardiovascular disease) Sister Colon cancer Breast cancer Blind Uterine cancer Family/Other Mental health disorder Social History Social History Housing: Apartment Alcohol intake: never Patient Tobacco Use Status: Never used Tobacco e-Cigarette/Vaping Use: Never Used Second Hand Smoke Exposure: No service: No Current occupational status: unemployed and disabled Cognitive needs: Yes Hearing needs: No Vision needs: Yes Physical Exam ED Vital Signs: Vital Signs - 24 hr 12/06/24 11:39 12/06/24 18:47 12/06/24 21:32 Temperature 98.1 F 97.4 F 97.4 F Pulse Rate 87 90 90 Respiratory Rate 18 15 15 Blood Pressure 148/95 H 136/63 136/63 Pulse Oximetry 96 94 94 Oxygen Delivery Method Room Air Room Air Room Air BMI result Body Mass Index 27.8 Course Course Course Narrative: This is a Rapid Medical Examination (RME) performed by Justus Jo PA-C in triage. Full HPI, ROS, assessment and treatment plan per primary provider in the Main ED. Hx: 79 yo F here w/ daughter for eval of abdominal/ bladder pain x3 wks. assoc urinary freq and foul odor. also endorses b/l burning to eyes. seen at ER for this 1 wk ago. neg covid test. prescribed mucinex. Plan: labs, UA Reevaluation(s) Reevaluation #1: This is a duplicate note. Please see dr. leo completed note regarding patient's visit on 12/06/2024. Medical Decision Making Lab Data 12/06/24 12:11 12/06/24 12:11 Labs: Lab Results 12/06/24 12/06/24 12/06/24 Range/Units 11:53 12:11 18:36 WBC 7.4 (4.8-10.8) X10*3/uL RBC 5.20 (4.20-5.50) X10*6/uL Hgb 14.9 (12.0-16.0) g/dl Hct 43.9 (37.0-47.0) % MCV 84.4 (80.0-98.0) fL MCH 28.7 (27.0-33.0) pg MCHC 33.9 (31.0-35.0) g/dl RDW 12.6 (11.0-16.0) % Plt Count 234 (160-400) X10*3/uL MPV 11.2 (9.4-12.3) fL Immature Gran % (Auto) 0.3 (0.0-0.4) % Neut % (Auto) 62.8 (45-73) % Lymph % (Auto) 28.3 (20-40) % [place] % (Auto) 8.3 (2-11) % Eos % (Auto) 0.0 (0-4) % Baso % (Auto) 0.3 (0-2) % Lymph # (Auto) 2.1 (1.2-4.9) X10*3/uL [place] # (Auto) 0.6 (0.1-1.2) X10*3/uL Eos # (Auto) 0.0 (0.0-0.4) X10*3/uL Baso # (Auto) 0.0 (0.0-0.2) X10*3/uL Abs Immat Gran (auto) 0.02 (0.00-0.03) X10*3/uL Absolute Neuts (auto) 4.6 (2.0-8.3) x10*3/uL Absolute Nucleated RBC 0.000 (0.0-0.012) X10*3/uL Nucleated RBC % (auto) 0.0 (0.0-0.2) /100WBC Sodium 135 (135-145) mmol/L Potassium 4.5 (3.3-5.1) mmol/L Chloride 104 (96-108) mmol/L Carbon Dioxide 22 (22-29) mmol/L Anion Gap 14 (12-20) BUN 21 H (9-16) mg/dL Creatinine 0.77 (0.5-1.4) mg/dL Estim Creat Clear Calc 45.5 Estimated GFR > 60 POC Glucose (60-115) mg/dL Random Glucose 461 H* (60-115) mg/dL Calcium 9.5 (8.4-10.2) mg/dL Magnesium 2.1 (1.6-2.6) mg/dL Total Bilirubin 0.5 (0.0-1.0) mg/dL AST 18 (5-31) U/L ALT 20 (0-31) U/L Alkaline Phosphatase 91 (39-117) U/L Troponin I High Sens < 2.7 (<3.5-17.0) ng/L Total Protein 7.2 (6.5-8.0) g/dL Albumin 4.5 (3.5-5.0) g/dL Lipase 75 (8-78) U/L Urine Color Yellow Urine Appearance Clear Urine pH 5.5 (5.0-9.0) Ur Specific [place] >= 1.030 H (1.005-1.025) Urine Protein Negative (Neg-Trace) mg/dL Urine Glucose (UA) >=1000 H (Negative) mg/dL Urine Ketones Negative (Negative) mg/dL Urine Blood Negative (Negative) Urine Nitrite Negative (Negative) Ur Leukocyte Esterase Negative (Negative) Urine RBC 0-2 (0-2) /HPF Urine WBC 0-5 (0-5) /HPF Ur Squamous Epith Cells 0-2 (0-2) /HPF Urine Bacteria None Seen (None Seen) Hyaline Casts 0-2 (0-2) /LPF 12/06/24 Range/Units 20:04 WBC (4.8-10.8) X10*3/uL RBC (4.20-5.50) X10*6/uL Hgb (12.0-16.0) g/dl Hct (37.0-47.0) % MCV (80.0-98.0) fL MCH (27.0-33.0) pg MCHC (31.0-35.0) g/dl RDW (11.0-16.0) % Plt Count (160-400) X10*3/uL MPV (9.4-12.3) fL Immature Gran % (Auto) (0.0-0.4) % Neut % (Auto) (45-73) % Lymph % (Auto) (20-40) % [place] % (Auto) (2-11) % Eos % (Auto) (0-4) % Baso % (Auto) (0-2) % Lymph # (Auto) (1.2-4.9) X10*3/uL [place] # (Auto) (0.1-1.2) X10*3/uL Eos # (Auto) (0.0-0.4) X10*3/uL Baso # (Auto) (0.0-0.2) X10*3/uL Abs Immat Gran (auto) (0.00-0.03) X10*3/uL Absolute Neuts (auto) (2.0-8.3) x10*3/uL Absolute Nucleated RBC (0.0-0.012) X10*3/uL Nucleated RBC % (auto) (0.0-0.2) /100WBC Sodium (135-145) mmol/L Potassium (3.3-5.1) mmol/L Chloride (96-108) mmol/L Carbon Dioxide (22-29) mmol/L Anion Gap (12-20) BUN (9-16) mg/dL Creatinine (0.5-1.4) mg/dL Estim Creat Clear Calc Estimated GFR POC Glucose 256 H (60-115) mg/dL Random Glucose (60-115) mg/dL Calcium (8.4-10.2) mg/dL Magnesium (1.6-2.6) mg/dL Total Bilirubin (0.0-1.0) mg/dL AST (5-31) U/L ALT (0-31) U/L Alkaline Phosphatase (39-117) U/L Troponin I High Sens (<3.5-17.0) ng/L Total Protein (6.5-8.0) g/dL Albumin (3.5-5.0) g/dL Lipase (8-78) U/L Urine Color Urine Appearance Urine pH (5.0-9.0) Ur Specific [place] (1.005-1.025) Urine Protein (Neg-Trace) mg/dL Urine Glucose (UA) (Negative) mg/dL Urine Ketones (Negative) mg/dL Urine Blood (Negative) Urine Nitrite (Negative) Ur Leukocyte Esterase (Negative) Urine RBC (0-2) /HPF Urine WBC (0-5) /HPF Ur Squamous Epith Cells (0-2) /HPF Urine Bacteria (None Seen) Hyaline Casts (0-2) /LPF Medications Administered Discontinued Medications Generic Name Dose Route Start Last Admin Trade Name Olivia PRN Reason Stop Dose Admin Lactated Ringer's 1,000 mls @ 999 mls/hr 12/06/24 18:00 12/06/24 19:47 Lr IV 12/06/24 19:00 Infused .Q1H1M MARIA L Infusion Iohexol 100 ml 12/06/24 18:47 12/06/24 18:48 Iohexol 350 Mg/Ml 100 Ml Infus..Btl IV 12/06/24 18:48 85 ml ONCE ONE Administration Discharge Plan Discharge Clinical Impression: Body aches, Abdominal pain Patient Disposition: Home, Self-Care Additional Instructions: Please follow with your primary care doctor. You may show this CT scan report to your primary care doctor. You may take Tylenol 1000 mg every 8 hours as needed for your body aches. Prescriptions: New acetaminophen 500 mg capsule 1,000 mg PO Q8H PRN (Reason: pain) Qty: 30 0RF No Action (DME) shoe inserts 7 See Rx Instructions .Route .MEDSUPPLY Qty: 2 1RF Rx Instructions: As directed albuterol sulfate 90 mcg/actuation HFA aerosol inhaler 2 puff PO Q4H PRN (Reason: bronchospasm) 90 Days Qty: 8.5 2RF alcohol swabs Pads, Medicated 1 pad topical BID 30 Days Qty: 100 1RF (DME) blood-glucose meter [FreeStyle Lite Meter] Kit See Rx Instructions .ROUTE .MEDSUPPLY Qty: 1 0RF Rx Instructions: As directed 3x/day metformin 1,000 mg tablet 1,000 mg PO BID 90 Days Qty: 180 1RF (DME) blood-glucose meter [OneTouch Ultra2 Meter] Kit See Rx Instructions .Route Qty: 1 0RF Rx Instructions: test 3xs per day Metamucil 3.4 gram/5.4 gram powder 1 tbsp PO BID 14 Days Qty: 660 0RF Rx Instructions: mix into at least 8 oz of water or juice before administering miscellaneous medical supply Kit 1 ea miscellaneous .once a day 30 Days Qty: 1 11RF (DME) OneTouch Ultra Test Strip See Rx Instructions .ROUTE .COMPLEX Qty: 100 0RF Dose Instruction: DIRECTED TO TEST BLOOD SUGAR THREE TIMES DAILY Rx Instructions: DIRECTED TO TEST BLOOD SUGAR THREE TIMES DAILY (DME) diabetic shoes with inserts 7 See Rx Instructions .Route .MEDSUPPLY Qty: 1 1RF Rx Instructions: As directed (DME) underpads [Bed Underpads] Pad See Rx Instructions .Route Qty: 100 11RF Rx Instructions: Use 3 to 4 underpads daily prn (DME) wipes See Rx Instructions .Route .MEDSUPPLY Qty: 240 11RF Rx Instructions: As directed (DME) latex gloves [Latex Gloves, Medium] Misc See Rx Instructions .Route Qty: 104 11RF Rx Instructions: As directed (DME) incontinence pad, liner, disp Pad See Rx Instructions .Route Qty: 180 11RF Rx Instructions: Use 1 pad prn 6 times per day donepezil 5 mg tablet 10 mg PO BEDTIME 30 Days Qty: 60 1RF nystatin 100,000 unit/gram powder 1 appl topical BID PRN (Reason: rash) 30 Days Qty: 30 0RF lisinopril 2.5 mg tablet 2.5 mg PO DAILY 90 Days Qty: 90 3RF calcium carbonate-vitamin D3 600 mg-10 mcg (400 unit) tablet 1 tab PO DAILY 90 Days Qty: 90 3RF vitamin A 3,000 mcg (10,000 unit) capsule 2 cap PO DAILY 90 Days Qty: 180 1RF cyanocobalamin (vitamin B-12) 1,000 mcg tablet 1,000 mcg PO DAILY 90 Days Qty: 90 3RF vitamin E (dl, acetate) 180 mg (400 unit) capsule 180 mg PO DAILY 90 Days Qty: 90 3RF ipratropium bromide 21 mcg (0.03 %) spray,non-aerosol 2 spray intranasal BID 90 Days Qty: 30 3RF Rx Instructions: administer into each nostril Jardiance 25 mg tablet 25 mg PO QAM Qty: 90 3RF clotrimazole 2 % cream 1 appful vaginal BEDTIME 3 Days Qty: 21 0RF Trulicity 1.5 mg/0.5 mL pen injector 1.5 mg subcut QWEEK 30 Days Qty: 2.5 1RF rosuvastatin 40 mg tablet 40 mg PO DAILY 90 Days Qty: 90 1RF albuterol sulfate [Ventolin HFA] 90 mcg/actuation HFA aerosol inhaler 2 puff inhalation Q4-6H PRN (Reason: bronchospasm) 30 Days Qty: 6.7 6RF aspirin 81 mg tablet,delayed release (DR/EC) 81 mg PO DAILY 90 Days Qty: 90 3RF (DME) FreeStyle Lite Strips Strip See Rx Instructions .ROUTE .MEDSUPPLY Qty: 100 11RF Rx Instructions: As directed three times a day cranberry fruit 400 mg capsule 400 mg PO TID 90 Days Qty: 270 1RF fluticasone propion-salmeterol 113-14 mcg/actuation aerosol powdr breath activated 1 inh PO BID 30 Days Qty: 1 6RF hydrocortisone 2.5 % cream 1 appl topical TID PRN (Reason: skin irritation) 90 Days Qty: 30 1RF (DME) lancets [FreeStyle Lancets] 28 gauge misc See Rx Instructions .ROUTE .MEDSUPPLY Qty: 100 11RF Rx Instructions: Three times a day lidocaine 5 % adhesive patch,medicated 1 patch topical DAILY 30 Days Qty: 30 6RF montelukast 10 mg tablet 10 mg PO DAILY 90 Days Qty: 90 3RF pen needle, diabetic 31 gauge x 5/16 needle See Rx Instructions subcut .COMPLEX Qty: 100 2RF Rx Instructions: subcut daily; venlafaxine 75 mg capsule,extended release 24hr 75 mg PO DAILY 90 Days Qty: 90 1RF tizanidine 2 mg tablet 2 mg PO TID PRN (Reason: muscle spasticity) 90 Days Qty: 270 1RF terconazole 0.8 % cream 1 appful vaginal BEDTIME 3 Days Qty: 20 0RF etodolac 600 mg tablet extended release 24 hr 600 mg PO DAILY 7 Days Qty: 7 0RF clotrimazole 1 % cream 1 appl topical BID 28 Days Qty: 45 0RF (DME) FreeStyle Lite Strips Strip See Rx Instructions Not Applicable QID Qty: 10 Rx Instructions: As directed Fish Oil 340-1,000 mg capsule 1 cap PO DAILY (DME) Shower Chair Misc See Rx Instructions .Route Qty: 1 0RF Rx Instructions: As directed Shanna Matos U-300 Insulin 300 unit/mL (1.5 mL) insulin pen 25 unit subcut BEDTIME docusate calcium 240 mg capsule 100 mg PO DAILY Interventions: ED Discharge Assessment Last Done: 12/06/24 21:32 Discharge Date/Time: 12/06/24 21:33 Print Language: Kyrgyz
[2024-12-06 12:19] LABS: MANUAL DIFF FLAG NO
[2024-12-06 12:20] LABS: Hematocrit 43.9 % (37.0-47.0); Hemoglobin 14.9 g/dl (12.0-16.0); Imm Gran Abs Auto 0.02 X10*3/uL (0.00-0.03); Imm Gran Pct Auto 0.3 % (0.0-0.4); Lymphocytes Absolute Auto 2.1 X10*3/uL (1.2-4.9); Mean Corpuscular HGB Conc 33.9 g/dl (31.0-35.0); Mean Corpuscular Hemoglobin 28.7 pg (27.0-33.0); Mean Corpuscular Volume 84.4 fL (80.0-98.0); NRBC Abs Auto 0.000 X10*3/uL (0.0-0.012); NRBC Pct Auto 0.0 /100WBC (0.0-0.2); Platelet Count 234 X10*3/uL (160-400); Red Blood Count 5.20 X10*6/uL (4.20-5.50); White Blood Count 7.4 X10*3/uL (4.8-10.8)
[2024-12-06 12:21] LABS: Appearance Urine Clear; Glucose Urine UA >=1000 mg/dL (Negative); PH 5.5 (5.0-9.0); Specific Gravity - Urine >= 1.030 (1.005-1.025); UMIC TRIGGER UACC YES
[2024-12-06 12:44] LABS: Alanine Aminotransferase 20 U/L (0-31); Albumin Level 4.5 g/dL (3.5-5.0); Alkaline Phosphatase 91 U/L (39-117); Anion Gap 14 (12-20); Aspartate Amino Transferase 18 U/L (5-31); Blood Urea Nitrogen 21 mg/dL (9-16); Calcium 9.5 mg/dL (8.4-10.2); Carbon Dioxide 22 mmol/L (22-29); Chloride 104 mmol/L (96-108); Creatinine Clr Calc Pharmacy 45.5; Estimated Glomerular Filt Rate > 60; Lipase 75 U/L (8-78); Magnesium 2.1 mg/dL (1.6-2.6); Potassium 4.5 mmol/L (3.3-5.1); Sodium 135 mmol/L (135-145); Total Protein 7.2 g/dL (6.5-8.0)
--- NOTE | 2024-12-06 17:51 | ED.GENADULT ---
HPI - General Adult General Chief complaint: Abdominal Pain Stated complaint: Abd pain, eye irritation Time Seen by Provider: 12/06/24 17:28 Source: patient and family Mode of arrival: ambulatory Limitations: language barrier History of Present Illness ED Provider: Dr. Garcia HPI narrative: 79-year-old female history of Alzheimer dementia, diabetes on Trulicity and Toujeo and metformin presented hospital today for evaluation of right flank pain. Daughter stated that this been going on for a couple of weeks now. They went to urgent care they had a test performed for COVID which was negative. They stated that it was a viral infection. They were sent home however patient persistently still has this pain. Patient is also complaining of chest pain on the left side. She has not complained of any coughing or fever. Patient is also complaining of irritation in her left eye. No visual changes. Denies any itchiness on the left eye denies any trauma to her left eye. Related Data Home Medications ?Medication ?Instructions ?Recorded ?Confirmed blood sugar diagnostic #10 ea 02/09/20 08/24/23 omega-3 fatty acids-fish oil 340 1 cap PO DAILY 02/09/20 08/24/23 mg-1,000 mg capsule docusate calcium 240 mg capsule 100 mg PO DAILY 12/02/24 insulin glargine U-300 conc 300 25 unit subcut BEDTIME 12/02/24 unit/mL (1.5 mL) subcutaneous pen (Toujeo SoloStar U-300 Insulin) Previous Rx's ?Medication ?Instructions ?Recorded shoe inserts #2 ea 11/14/21 albuterol sulfate 90 mcg/actuation 2 puff PO Q4H PRN bronchospasm 90 12/14/21 aerosol inhaler days #8.5 grams alcohol swabs 1 pad topical BID 30 days #100 ea 08/01/22 blood-glucose meter (FreeStyle #1 ea 08/01/22 Lite Meter kit) metformin 1,000 mg tablet 1,000 mg PO BID 90 days #180 tabs 08/01/22 Shower Chair #1 ea 08/11/22 blood-glucose meter (OneTouch #1 ea 09/03/22 Ultra2 Meter kit) psyllium husk 3.4 gram/5.4 gram 1 tbsp PO BID 14 days #660 grams 09/03/22 oral powder (Metamucil) miscellaneous medical supply 1 ea miscellaneous .once a day 30 10/13/22 days #1 ea blood sugar diagnostic (OneTouch #100 strips 02/02/23 Ultra Test strips) diabetic shoes with inserts #1 ea 08/04/23 clotrimazole 1 % topical cream 1 appl topical BID 4 weeks #45 09/06/23 grams underpads (Bed Underpads) #100 ea 09/09/23 incontinence pad, liner, disp #180 ea 09/10/23 latex gloves (Latex Gloves, Medium) #104 ea 09/10/23 wipes #240 ea 09/10/23 donepezil 5 mg tablet 10 mg (2 x 5 mg) PO BEDTIME 30 11/13/23 days #60 tabs calcium 600 mg (as 1 tab PO DAILY 90 days #90 tabs 02/09/24 carbonate)-vitamin D3 10 mcg (400 unit) tablet clotrimazole 2 % vaginal cream 1 appful vaginal BEDTIME 3 days 02/09/24 #21 grams cyanocobalamin (vitamin B-12) 1,000 mcg PO DAILY 90 days #90 tabs 02/09/24 1,000 mcg tablet empagliflozin 25 mg tablet 25 mg PO QAM #90 tabs 02/09/24 (Jardiance) ipratropium bromide 21 mcg (0.03 2 spray intranasal BID 90 days #30 02/09/24 %) nasal spray mL lisinopril 2.5 mg tablet 2.5 mg PO DAILY 90 days #90 tabs 02/09/24 nystatin 100,000 unit/gram topical 1 appl topical BID PRN rash 30 02/09/24 powder days #30 grams vitamin A 3,000 mcg (10,000 unit) 2 cap PO DAILY 90 days #180 caps 02/09/24 capsule vitamin E (dl, acetate) 180 mg 180 mg PO DAILY 90 days #90 caps 02/09/24 (400 unit) capsule dulaglutide 1.5 mg/0.5 mL 1.5 mg (0.5 mL) subcut QWEEK 30 06/03/24 subcutaneous pen injector days #2.5 mL (Trulicity) rosuvastatin 40 mg tablet 40 mg PO DAILY 90 days #90 tabs 08/15/24 albuterol sulfate 90 mcg/actuation 2 puff inhalation Q4-6H PRN 10/20/24 aerosol inhaler (Ventolin HFA) bronchospasm 30 days #6.7 grams aspirin 81 mg tablet,delayed 81 mg PO DAILY 90 days #90 tabs 10/20/24 release blood sugar diagnostic (FreeStyle #100 ea 10/20/24 Lite Strips) cranberry fruit 400 mg capsule 400 mg PO TID 90 days #270 caps 10/20/24 fluticasone 113 mcg-salmeterol 14 1 inh PO BID 30 days #1 ea 10/20/24 mcg/actuation breath activated powdr hydrocortisone 2.5 % topical cream 1 appl topical TID PRN skin 10/20/24 irritation 90 days #30 grams lancets 28 gauge (FreeStyle #100 ea 10/20/24 Lancets) lidocaine 5 % topical patch 1 patch topical DAILY 30 days #30 10/20/24 ea montelukast 10 mg tablet 10 mg PO DAILY 90 days #90 tabs 10/20/24 pen needle, diabetic 31 gauge x See Rx Instructions subcut 11/16/24 5/16 .COMPLEX #100 ea terconazole 0.8 % vaginal cream 1 appful vaginal BEDTIME 3 days 11/16/24 #20 grams tizanidine 2 mg tablet 2 mg PO TID PRN muscle spasticity 11/16/24 90 days #270 tabs venlafaxine 75 mg capsule,extended 75 mg PO DAILY 90 days #90 caps 11/16/24 release 24 hr etodolac 600 mg tablet,extended 600 mg PO DAILY 7 days #7 tabs 12/05/24 release 24 hr acetaminophen 500 mg capsule 1,000 mg (2 x 500 mg) PO Q8H PRN 12/06/24 pain #30 caps Allergies Allergy/AdvReac Type Severity Reaction Status Date / Time No Known Allergies (No Known Allergy Verified 12/06/24 11:41 Allergies*) Review of Systems Review of Systems: Pertinent review of system as mentioned in HPI otherwise all other system are negative. [facility] Past Medical History [facility] Narrative: As mentioned in HPI Medical History Skin lesion Mixed hyperlipidemia Essential hypertension Left knee pain Left hip pain Left foot pain Unsteady gait Low back pain Spondylosis of lumbar region without myelopathy or radiculopathy Hypovitaminosis D Nausea Moderate asthma Fibromyalgia Diabetes mellitus B12 deficiency Surgical History History of right oophorectomy History of tubal ligation Family History Family History Father CVD (cardiovascular disease) Diabetes Mother Diabetes Hypertension CVD (cardiovascular disease) Sister Colon cancer Breast cancer Blind Uterine cancer Family/Other Mental health disorder Social History Social History Housing: Apartment Alcohol intake: never Patient Tobacco Use Status: Never used Tobacco e-Cigarette/Vaping Use: Never Used Second Hand Smoke Exposure: No Advance Directives: No Advance Directives Information Provided: No Do you have a plan to hurt others: No Plan service: No Current occupational status: unemployed and disabled Cognitive needs: Yes Hearing needs: No Vision needs: Yes Physical Exam ED Exam Exam: General: Pleasant, no distress, interacting appropriately Head: Normacephalic, atraumatic ENT: oral mucosa moist, neck supple, left-sided conjunctiva on exam Cardiovascular: regular rate, regular rhythm, no murmurs, rubbing, gallops Respiratory: CTAB, no wheeze, rales, rhonchi Gastrointestinal: Soft, non distended, non tender, non guarding, no CVA tenderness on percussion Extremities: No limb pain or swelling, no calf tenderness Neurological: Awake and alert, no facial droop noted Skin: Warm and dry Psychiatric: Appropriate mood and thoughts Vital Signs: Vital Signs - 24 hr 12/06/24 11:39 12/06/24 18:47 Temperature 98.1 F 97.4 F Pulse Rate 87 90 Respiratory Rate 18 15 Blood Pressure 148/95 H 136/63 Pulse Oximetry 96 94 Oxygen Delivery Method Room Air Room Air BMI result Body Mass Index 27.8 Medications Administered Discontinued Medications Generic Name Dose Route Start Last Admin Trade Name Freq PRN Reason Stop Dose Admin Lactated Ringer's 1,000 mls @ 999 mls/hr 12/06/24 18:00 12/06/24 19:47 Lr IV 12/06/24 19:00 Infused .Q1H1M MARIA L Infusion Iohexol 100 ml 12/06/24 18:47 12/06/24 18:48 Iohexol 350 Mg/Ml 100 Ml Infus..Btl IV 12/06/24 18:48 85 ml ONCE ONE Administration Medical Decision Making Medical Decision Making [facility] Narrative: This is a 79-year-old female history Alzheimer dementia and diabetes presented hospital today for right flank pain and left-sided chest pain. We will plan to obtain a screening EKG, troponin, ACS workup for the patient does time. We will obtain a chest x-ray for the patient. We will also obtain a CT abdomen and pelvis. Given the chronicity of her pain. IV fluid will be initiated for the patient at this time. We will reassess her blood sugar afterward. Patient's UA did not show any signs of UTI. We will assess for any signs of nephrolithiasis versus intra-abdominal pathology that may be causing her hyperglycemia. court interpreter was used for this encounter. There was no acute cardiopulmonary process on chest x-ray, CT abdomen and pelvis shows signs of hepatomegaly with hepatic steatosis. Any signs of diverticulosis. This was discussed with patient's family via court interpreter Patient's troponin is negative here. no sign of STEMI on EKG. Patient UA did not show any signs of UTI. Patient sugar has improved to 256 after IV fluid hydration. We will plan to discharge patient home with close outpatient follow up with her primary care doctor. court interpreter was used for this encounter. Patient is agreeable to this plan. Differential Diagnosis Differential Diagnoses: The differential diagnosis associated with the presentation includes Nephrolithiasis, UTI, gastritis, colitis, viral gastroenteritis Lab Data [facility] Lab Attestation statement: I reviewed the patient's lab results. 12/06/24 12:11 12/06/24 12:11 Labs: Lab Results 12/06/24 12/06/24 12/06/24 Range/Units 11:53 12:11 18:36 WBC 7.4 (4.8-10.8) X10*3/uL RBC 5.20 (4.20-5.50) X10*6/uL Hgb 14.9 (12.0-16.0) g/dl Hct 43.9 (37.0-47.0) % MCV 84.4 (80.0-98.0) fL MCH 28.7 (27.0-33.0) pg MCHC 33.9 (31.0-35.0) g/dl RDW 12.6 (11.0-16.0) % Plt Count 234 (160-400) X10*3/uL MPV 11.2 (9.4-12.3) fL Immature Gran % (Auto) 0.3 (0.0-0.4) % Neut % (Auto) 62.8 (45-73) % Lymph % (Auto) 28.3 (20-40) % [place] % (Auto) 8.3 (2-11) % Eos % (Auto) 0.0 (0-4) % Baso % (Auto) 0.3 (0-2) % Lymph # (Auto) 2.1 (1.2-4.9) X10*3/uL [place] # (Auto) 0.6 (0.1-1.2) X10*3/uL Eos # (Auto) 0.0 (0.0-0.4) X10*3/uL Baso # (Auto) 0.0 (0.0-0.2) X10*3/uL Abs Immat Gran (auto) 0.02 (0.00-0.03) X10*3/uL Absolute Neuts (auto) 4.6 (2.0-8.3) x10*3/uL Absolute Nucleated RBC 0.000 (0.0-0.012) X10*3/uL Nucleated RBC % (auto) 0.0 (0.0-0.2) /100WBC Sodium 135 (135-145) mmol/L Potassium 4.5 (3.3-5.1) mmol/L Chloride 104 (96-108) mmol/L Carbon Dioxide 22 (22-29) mmol/L Anion Gap 14 (12-20) BUN 21 H (9-16) mg/dL Creatinine 0.77 (0.5-1.4) mg/dL Estim Creat Clear Calc 45.5 Estimated GFR > 60 POC Glucose (60-115) mg/dL Random Glucose 461 H* (60-115) mg/dL Calcium 9.5 (8.4-10.2) mg/dL Magnesium 2.1 (1.6-2.6) mg/dL Total Bilirubin 0.5 (0.0-1.0) mg/dL AST 18 (5-31) U/L ALT 20 (0-31) U/L Alkaline Phosphatase 91 (39-117) U/L Troponin I High Sens < 2.7 (<3.5-17.0) ng/L Total Protein 7.2 (6.5-8.0) g/dL Albumin 4.5 (3.5-5.0) g/dL Lipase 75 (8-78) U/L Urine Color Yellow Urine Appearance Clear Urine pH 5.5 (5.0-9.0) Ur Specific [place] >= 1.030 H (1.005-1.025) Urine Protein Negative (Neg-Trace) mg/dL Urine Glucose (UA) >=1000 H (Negative) mg/dL Urine Ketones Negative (Negative) mg/dL Urine Blood Negative (Negative) Urine Nitrite Negative (Negative) Ur Leukocyte Esterase Negative (Negative) Urine RBC 0-2 (0-2) /HPF Urine WBC 0-5 (0-5) /HPF Ur Squamous Epith Cells 0-2 (0-2) /HPF Urine Bacteria None Seen (None Seen) Hyaline Casts 0-2 (0-2) /LPF 12/06/24 Range/Units 20:04 WBC (4.8-10.8) X10*3/uL RBC (4.20-5.50) X10*6/uL Hgb (12.0-16.0) g/dl Hct (37.0-47.0) % MCV (80.0-98.0) fL MCH (27.0-33.0) pg MCHC (31.0-35.0) g/dl RDW (11.0-16.0) % Plt Count (160-400) X10*3/uL MPV (9.4-12.3) fL Immature Gran % (Auto) (0.0-0.4) % Neut % (Auto) (45-73) % Lymph % (Auto) (20-40) % [place] % (Auto) (2-11) % Eos % (Auto) (0-4) % Baso % (Auto) (0-2) % Lymph # (Auto) (1.2-4.9) X10*3/uL [place] # (Auto) (0.1-1.2) X10*3/uL Eos # (Auto) (0.0-0.4) X10*3/uL Baso # (Auto) (0.0-0.2) X10*3/uL Abs Immat Gran (auto) (0.00-0.03) X10*3/uL Absolute Neuts (auto) (2.0-8.3) x10*3/uL Absolute Nucleated RBC (0.0-0.012) X10*3/uL Nucleated RBC % (auto) (0.0-0.2) /100WBC Sodium (135-145) mmol/L Potassium (3.3-5.1) mmol/L Chloride (96-108) mmol/L Carbon Dioxide (22-29) mmol/L Anion Gap (12-20) BUN (9-16) mg/dL Creatinine (0.5-1.4) mg/dL Estim Creat Clear Calc Estimated GFR POC Glucose 256 H (60-115) mg/dL Random Glucose (60-115) mg/dL Calcium (8.4-10.2) mg/dL Magnesium (1.6-2.6) mg/dL Total Bilirubin (0.0-1.0) mg/dL AST (5-31) U/L ALT (0-31) U/L Alkaline Phosphatase (39-117) U/L Troponin I High Sens (<3.5-17.0) ng/L Total Protein (6.5-8.0) g/dL Albumin (3.5-5.0) g/dL Lipase (8-78) U/L Urine Color Urine Appearance Urine pH (5.0-9.0) Ur Specific [place] (1.005-1.025) Urine Protein (Neg-Trace) mg/dL Urine Glucose (UA) (Negative) mg/dL Urine Ketones (Negative) mg/dL Urine Blood (Negative) Urine Nitrite (Negative) Ur Leukocyte Esterase (Negative) Urine RBC (0-2) /HPF Urine WBC (0-5) /HPF Ur Squamous Epith Cells (0-2) /HPF Urine Bacteria (None Seen) Hyaline Casts (0-2) /LPF Independent Interpretation I performed an independent interpretation of an: EKG, Plain X-Ray and CT Scan Radiology Impression Discussion of test interpretation with radiology: I have reviewed the radiologist's reading. Discharge Plan Discharge Clinical Impression: Body aches, Abdominal pain Patient Disposition: Home, Self-Care Additional Instructions: Please follow with your primary care doctor. You may show this CT scan report to your primary care doctor. You may take Tylenol 1000 mg every 8 hours as needed for your body aches. Prescriptions: New acetaminophen 500 mg capsule 1,000 mg PO Q8H PRN (Reason: pain) Qty: 30 0RF No Action (DME) shoe inserts 7 See Rx Instructions .Route .MEDSUPPLY Qty: 2 1RF Rx Instructions: As directed albuterol sulfate 90 mcg/actuation HFA aerosol inhaler 2 puff PO Q4H PRN (Reason: bronchospasm) 90 Days Qty: 8.5 2RF alcohol swabs Pads, Medicated 1 pad topical BID 30 Days Qty: 100 1RF (DME) blood-glucose meter [FreeStyle Lite Meter] Kit See Rx Instructions .ROUTE .MEDSUPPLY Qty: 1 0RF Rx Instructions: As directed 3x/day metformin 1,000 mg tablet 1,000 mg PO BID 90 Days Qty: 180 1RF (DME) blood-glucose meter [OneTouch Ultra2 Meter] Kit See Rx Instructions .Route Qty: 1 0RF Rx Instructions: test 3xs per day Metamucil 3.4 gram/5.4 gram powder 1 tbsp PO BID 14 Days Qty: 660 0RF Rx Instructions: mix into at least 8 oz of water or juice before administering miscellaneous medical supply Kit 1 ea miscellaneous .once a day 30 Days Qty: 1 11RF (DME) OneTouch Ultra Test Strip See Rx Instructions .ROUTE .COMPLEX Qty: 100 0RF Dose Instruction: DIRECTED TO TEST BLOOD SUGAR THREE TIMES DAILY Rx Instructions: DIRECTED TO TEST BLOOD SUGAR THREE TIMES DAILY (DME) diabetic shoes with inserts 7 See Rx Instructions .Route .MEDSUPPLY Qty: 1 1RF Rx Instructions: As directed (DME) underpads [Bed Underpads] Pad See Rx Instructions .Route Qty: 100 11RF Rx Instructions: Use 3 to 4 underpads daily prn (DME) wipes See Rx Instructions .Route .MEDSUPPLY Qty: 240 11RF Rx Instructions: As directed (DME) latex gloves [Latex Gloves, Medium] Misc See Rx Instructions .Route Qty: 104 11RF Rx Instructions: As directed (DME) incontinence pad, liner, disp Pad See Rx Instructions .Route Qty: 180 11RF Rx Instructions: Use 1 pad prn 6 times per day donepezil 5 mg tablet 10 mg PO BEDTIME 30 Days Qty: 60 1RF nystatin 100,000 unit/gram powder 1 appl topical BID PRN (Reason: rash) 30 Days Qty: 30 0RF lisinopril 2.5 mg tablet 2.5 mg PO DAILY 90 Days Qty: 90 3RF calcium carbonate-vitamin D3 600 mg-10 mcg (400 unit) tablet 1 tab PO DAILY 90 Days Qty: 90 3RF vitamin A 3,000 mcg (10,000 unit) capsule 2 cap PO DAILY 90 Days Qty: 180 1RF cyanocobalamin (vitamin B-12) 1,000 mcg tablet 1,000 mcg PO DAILY 90 Days Qty: 90 3RF vitamin E (dl, acetate) 180 mg (400 unit) capsule 180 mg PO DAILY 90 Days Qty: 90 3RF ipratropium bromide 21 mcg (0.03 %) spray,non-aerosol 2 spray intranasal BID 90 Days Qty: 30 3RF Rx Instructions: administer into each nostril Jardiance 25 mg tablet 25 mg PO QAM Qty: 90 3RF clotrimazole 2 % cream 1 appful vaginal BEDTIME 3 Days Qty: 21 0RF Trulicity 1.5 mg/0.5 mL pen injector 1.5 mg subcut QWEEK 30 Days Qty: 2.5 1RF rosuvastatin 40 mg tablet 40 mg PO DAILY 90 Days Qty: 90 1RF albuterol sulfate [Ventolin HFA] 90 mcg/actuation HFA aerosol inhaler 2 puff inhalation Q4-6H PRN (Reason: bronchospasm) 30 Days Qty: 6.7 6RF aspirin 81 mg tablet,delayed release (DR/EC) 81 mg PO DAILY 90 Days Qty: 90 3RF (DME) FreeStyle Lite Strips Strip See Rx Instructions .ROUTE .MEDSUPPLY Qty: 100 11RF Rx Instructions: As directed three times a day cranberry fruit 400 mg capsule 400 mg PO TID 90 Days Qty: 270 1RF fluticasone propion-salmeterol 113-14 mcg/actuation aerosol powdr breath activated 1 inh PO BID 30 Days Qty: 1 6RF hydrocortisone 2.5 % cream 1 appl topical TID PRN (Reason: skin irritation) 90 Days Qty: 30 1RF (DME) lancets [FreeStyle Lancets] 28 gauge misc See Rx Instructions .ROUTE .MEDSUPPLY Qty: 100 11RF Rx Instructions: Three times a day lidocaine 5 % adhesive patch,medicated 1 patch topical DAILY 30 Days Qty: 30 6RF montelukast 10 mg tablet 10 mg PO DAILY 90 Days Qty: 90 3RF pen needle, diabetic 31 gauge x 5/16 needle See Rx Instructions subcut .COMPLEX Qty: 100 2RF Rx Instructions: subcut daily; venlafaxine 75 mg capsule,extended release 24hr 75 mg PO DAILY 90 Days Qty: 90 1RF tizanidine 2 mg tablet 2 mg PO TID PRN (Reason: muscle spasticity) 90 Days Qty: 270 1RF terconazole 0.8 % cream 1 appful vaginal BEDTIME 3 Days Qty: 20 0RF etodolac 600 mg tablet extended release 24 hr 600 mg PO DAILY 7 Days Qty: 7 0RF clotrimazole 1 % cream 1 appl topical BID 28 Days Qty: 45 0RF (DME) FreeStyle Lite Strips Strip See Rx Instructions Not Applicable QID Qty: 10 Rx Instructions: As directed Fish Oil 340-1,000 mg capsule 1 cap PO DAILY (DME) Shower Chair Misc See Rx Instructions .Route Qty: 1 0RF Rx Instructions: As directed Shanna Matos U-300 Insulin 300 unit/mL (1.5 mL) insulin pen 25 unit subcut BEDTIME docusate calcium 240 mg capsule 100 mg PO DAILY Print Language: Greek
--- OUTSIDE RECORDS SUMMARY | 2024-12-06 17:55 | XMS_ITS | Clinical Summary ---
Author Organization [employer] Address [address] [place] [address] Care Team Providers Care Apns Name Role Phone Unavailable Primary Care Provider [...] patient's age to complete this topic [place] [address] [place] [id number]
--- OUTSIDE RECORDS SUMMARY | 2024-12-06 17:55 | XMS_ITS | Clinical Summary ---
Author Organization [facility] Address [address] [facility] [place] [address] Phone Care Team Providers Care Bakeshop Cleaner Name Role Phone Chani Salguero MD Primary Care Provider [phone] Allergies No known active allergies Medications aspirin [...] patient's age to complete this topic Insurance [facility] ([id number]) [facility] ([id number]) Care Teams Bakeshop Cleaner Relationship Specialty Start Date End Date Chani Salguero MD [address] [place], [place] PCP - General 04/30/20
--- NOTE | 2024-12-06 18:08 | ECG_ITS ---
Test Reason : abdominal pain Blood Pressure : */* mmHG Vent. Rate : 94 BPM Atrial Rate : 94 BPM P-R Int : 166 ms QRS Dur : 80 ms QT Int : 344 ms P-R-T Axes : 26 -56 -5 degrees QTcB Int : 430 ms Normal sinus rhythm Left axis deviation Inferior infarct , age undetermined Anterolateral infarct (cited on or before 17-May-2003) Abnormal ECG When compared with ECG of 02-Dec-2021 21:37, No significant changes seen Referred By: Hemalatha Garcia Electronically Signed By: BRICE ZHOU MD
[2024-12-06] MEDS: Lactated Ringers 1,000 ML 999 ML IV (18:46)
[2024-12-06 18:47] VITALS: BP 136/63; PULSE 90; RESP 15; TEMP 36.3; O2SAT 94
[2024-12-06] MEDS: iohexoL 350 MG/ML 100 ML INFUS..BTL IV (18:48)
[2024-12-06 19:06] LABS: Troponin-I High Sensitivity < 2.7 ng/L (<3.5-17.0)
[2024-12-06 20:08] LABS: Glucose, Whole Blood 256 mg/dL (60-115)
--- NOTE | 2024-12-06 20:15 | PC.NURSE ---
RN spoke to provider after LR finished. POC was 256- provider OK pt to eat. Provider will be speaking to pt.
[2024-12-06 21:32] VITALS: BP 136/63; PULSE 90; RESP 15; TEMP 36.3; O2SAT 94
== END 2024-12-06 21:33 | disposition home or self-care (01) ==
PROVIDERS: Physician Assistant Medical; Emergency Provider Student in an Organized Health Care Education/Training Program; PCP Internal Medicine
DX: R10.9 Unspecified abdominal pain (principal); E11.9 Type 2 diabetes mellitus without complications; G30.9 Alzheimer's disease, unspecified; F02.80 Dementia in other diseases classified elsewhere, unspecified severity, without behavioral disturbance, psychotic disturbance, mood disturbance, and anxiety
CPT/HCPCS: 36415; 71046; 74177; 80053; 81001; 82947; 83690; 83735; 84484; 85025; 93005; 96360; 99284; 99285; J7120; Q9967

== ENCOUNTER → 2024-12-06 17:49 | Outpatient (BNV) | payer OTHER, SELFPAY | PROVIDERS: Emergency Provider Student in an Organized Health Care Education/Training Program; PCP Internal Medicine; Visit Provider Radiology Diagnostic Radiology | DX: K57.30 Diverticulosis of large intestine without perforation or abscess without bleeding (principal); R06.02 Shortness of breath | CPT/HCPCS: 71046; 74177 ==

== ENCOUNTER → 2024-12-06 18:08 | Outpatient (BNV) | payer OTHER, SELFPAY | PROVIDERS: Emergency Provider Student in an Organized Health Care Education/Training Program; PCP Internal Medicine; Visit Provider Internal Medicine Cardiovascular Disease | DX: I25.2 Old myocardial infarction (principal) | CPT/HCPCS: 93010 ==

== ENCOUNTER 2024-12-13 10:38 | Outpatient (AMB) | payer OTHER, SELFPAY ==
[2024-12-13 10:49] VITALS: BP 122/72; PULSE 94; O2SAT 96; BMI 28.5
--- NOTE | 2024-12-13 10:50 | MHC.PC.OV ---
Vital Signs 12/13/24 10:49 Height 4 ft 10 in Weight 136 lb 5 oz BMI 28.5 BP 122/72 Blood Pressure Location Lt brachial Position Sitting Pulse 94 Pulse Source Pulse Oximeter Pulse Oximetry (%) 96 Oxygen Delivery Method Room Air Intake Visit Reasons: Abdominal pain Ep Tech Required: No Accompanied by: Self / Same As Patient Allergies No Known Allergies (No Known Allergies*) Allergy (Verified 12/13/24 11:09) Medication List - Last Reconciled 12/13/24 by Chani Titus MD acetaminophen 1,000 mg (2 x 500 mg) PO Q8H PRN albuterol sulfate 90 mcg/actuation 2 puffs PO Q4H PRN 90 days albuterol sulfate 90 mcg/actuation (Ventolin HFA) 2 puffs inhalation Q4-6H PRN 30 days alcohol swabs 1 pad topical BID 30 days aspirin 81 mg PO DAILY 90 days blood sugar diagnostic As directed blood sugar diagnostic (OneTouch Ultra Test strips) DIRECTED TO TEST BLOOD SUGAR THREE TIMES DAILY blood sugar diagnostic (FreeStyle Lite Strips) As directed three times a day blood-glucose meter (OneTouch Ultra2 Meter kit) test 3xs per day blood-glucose meter (FreeStyle Lite Meter kit) As directed 3x/day calcium carbonate-vitamin D3 600 mg-10 mcg (400 unit) 1 tab PO DAILY 90 days clotrimazole 1% 1 appl topical BID 4 weeks clotrimazole 2% 1 appful vaginal BEDTIME 3 days cranberry fruit 400 mg PO TID 90 days cyanocobalamin (vitamin B-12) 1,000 mcg PO DAILY 90 days [diabetic shoes with inserts As directed] docusate calcium 100 mg PO DAILY donepezil 10 mg (2 x 5 mg) PO BEDTIME 30 days dulaglutide (Trulicity) 1.5 mg (0.5 mL) subcut QWEEK 30 days empagliflozin (Jardiance) 25 mg PO QAM etodolac ER 600 mg PO DAILY 7 days fluticasone propion-salmeterol 113-14 mcg/actuation 1 inh PO BID 30 days hydrocortisone 2.5% 1 appl topical TID PRN 90 days incontinence pad, liner, disp Use 1 pad prn 6 times per day insulin glargine U-300 conc (Toujeo SoloStar U-300 Insulin) 25 units subcut BEDTIME ipratropium bromide 2 sprays intranasal BID 90 days lancets (FreeStyle Lancets) Three times a day latex gloves (Latex Gloves, Medium) As directed lidocaine 5% 1 patch topical DAILY 30 days lisinopril 2.5 mg PO DAILY 90 days metformin 1,000 mg PO BID 90 days miscellaneous medical supply 1 ea miscellaneous .once a day 30 days montelukast 10 mg PO DAILY 90 days nystatin 1 appl topical BID PRN 30 days omega-3 fatty acids-fish oil 340-1,000 mg 1 cap PO DAILY oxycodone-acetaminophen 5-325 mg (Percocet) 1 tab PO Q8H PRN 7 days pen needle, diabetic subcut daily; psyllium husk (Metamucil) 1 tbsp PO BID 14 days rosuvastatin 40 mg PO DAILY 90 days [shoe inserts As directed] Shower Chair As directed terconazole 0.8% 1 appful vaginal BEDTIME 3 days tizanidine 2 mg PO TID PRN 90 days underpads (Bed Underpads) Use 3 to 4 underpads daily prn venlafaxine ER 75 mg PO DAILY 90 days vitamin A 2 caps PO DAILY 90 days vitamin E (dl, acetate) 180 mg PO DAILY 90 days [wipes As directed] Tobacco use date assessed: 12/13/24 Fall risk assessment: No Falls in past year Last assessed Fall Risk: 12/13/24 Dental Screening Dental Screen Date: 12/13/24 Did you have a dental visit in the last 12 months?: No Did you have a dental problem in the last 6 months where you did not have access to dental care?: No Was dental information given to patient?: No HPI HPI Comments History of Present Illness Details The patient is a 79-year-old female presenting with abdominal pain. The abdominal pain is constant and not associated with meals, and it began after starting Trulicity. The patient has tried TUMS without relief, and there is no history of nausea or vomiting associated with the pain. She has diabetes mellitus type 2 on long-term current use of insulin and her A1c today is 12.8% and this is why I will increase insulin and increase Trulicity. Will keep her in metformin and Jardiance. She also has Alzheimer's dementia and is accompanied by daughter which takes care of her. The patient also reports constipation, which is managed with docusate. The constipation is not associated with nausea or vomiting. Anxiety has been noted recently, affecting her appetite and causing her to eat very little. The anxiety also leads to episodes of coughing and a sensation of wanting to vomit. The patient has a history of chronic back pain due to arthritis, for which she has been prescribed Percocet. Pain management contract signed today. She also experiences symptoms of allergic rhinitis, including sneezing and nasal discharge, which were initially suspected to be COVID-19 but tested negative. Bilateral renal cysts were identified, and a referral to urology is planned. [facility] Medical History (Updated 12/13/24 @ 11:30 by Chani Titus MD) Skin lesion Mixed hyperlipidemia Essential hypertension Left knee pain Left hip pain Left foot pain Unsteady gait Low back pain Spondylosis of lumbar region without myelopathy or radiculopathy Hypovitaminosis D Nausea Moderate asthma Fibromyalgia Diabetes mellitus B12 deficiency Surgical History History of right oophorectomy History of tubal ligation Family History Father CVD (cardiovascular disease) Diabetes Mother Diabetes Hypertension CVD (cardiovascular disease) Sister Colon cancer Breast cancer Blind Uterine cancer Family/Other Mental health disorder Social History Housing: Apartment Alcohol intake: never Patient Tobacco Use Status: Never used Tobacco e-Cigarette/Vaping Use: Never Used Second Hand Smoke Exposure: No service: No Current occupational status: unemployed and disabled Cognitive needs: Yes Hearing needs: No Vision needs: Yes Questionnaire PHQ-9 Over the last 2 weeks, how often have you been bothered by any of the following problems? 1. Little interest or pleasure in doing things: more than half the days 2. Feeling down, depressed, or hopeless: more than half the days 3. Trouble falling or staying asleep, or sleeping too much: several days 4. Feeling tired or having little energy: several days 5. Poor appetite or overeating: not at all 6. Feeling bad about yourself - or that you are a failure or have let yourself or your family down: not at all 7. Trouble concentrating on things, such as reading the newspaper or watching television: several days 8. Moving or speaking so slowly that other people could have noticed. Or the opposite - being so fidgety or restless that you have been moving around a lot more than usual: not at all 9. Thoughts that you would be better off or of hurting yourself in some way: not at all Total score: 7 Depression Screening Interpretation: Positive Depression Screening Follow-up: Existing condition and Follow-up Visit Requested Depression Screening Done: Yes 67539 - PHQ-9 Billing: Yes Source: Developed by Drs. Shayne Lennon, Tiff Boudreaux, Amado Andres and colleagues, with an educational blaire from [employer]. Thrive Questionnaire Date Thrive assessed: 12/13/24 I am a: Patient What is your living situation today?: I have a steady place to live Within the past 12 months, did the food you bought not last and you didn't have the money to get more?: Never true Within the past 12 months, did you worry whether your food would run out before you got money to buy more?: Never true Do you have trouble paying for medicines?: No Do you have trouble getting transportation to medical appointments?: No Do you have trouble paying your heating and electricity bill?: No Do you have trouble taking care of your child, family member or friend?: No Do you have trouble with day-to-day activities such as bathing, preparing meals, shopping, managing finances, etc.?: No Are you currently unemployed and looking for a job?: Yes Are you interested in more education?: No Please select the resources that you would like help with: None Currently or been in a relationship where the following occur: No concerns reported THRIVE Score: 0 AUDIT C Alcohol Use Questionnaire (AUDIT-C) 1. How often do you have a drink containing alcohol?: Never 3. How often do you have six or more drinks on one occasion?: Never Total Score: 0 Score Reviewed/Action Taken: No MARCIAL-7 AMB Questionnaire MARCIAL-7 Date MARCIAL - 7 assessed: 12/13/24 Feeling nervous, anxious, or on edge: 1 = Several days Not being able to stop or control worryin = Several days Worrying too much about different things: 1 = Several days Trouble relaxin = Several days Being so restless that it is hard to sit still: 1 = Several days Becoming easily annoyed or irritable: 0 = Not at all Feeling afraid as if something awful might happen: 0 = Not at all Total MARCIAL-7 score (0-4 normal; 5-9 mild; 10-14 moderate; 15-21 severe): 5 Source: Developed by Drs. Shayne Lennon, Tiff Boudreaux, Amado Andres and colleagues, with an educational blaire from [employer]. MARCIAL-7 Assessment Billing MARCIAL-7 Assessment Tool: MARCIAL-7 Assessment 11437 Review of Systems Const All systems reviewed & are unremarkable except as noted in HPI and below Card Denies chest pain at rest, Denies chest pain with activity, Denies edema, Denies irregular heart rhythm, Denies claudication, Denies dyspnea, Denies dyspnea on exertion, Denies orthopnea, Denies paroxysmal nocturnal dyspnea and Denies slow heart rate Resp Denies cough, Denies dyspnea and Denies dyspnea on exertion GI Denies abdominal pain, Denies change in bowel habits, Denies excessive flatus, Denies nausea and Denies vomiting Physical exam (Primary Care) Vital Signs: Last Vital Signs Pulse 94 12/13/24 10:49 BP 122/72 12/13/24 10:49 Pulse Ox 96 12/13/24 10:49 Oxygen Delivery Method Room Air 12/13/24 10:49 BMI result Body Mass Index 28.5 Tobacco/Smoking Status: Tobacco use Status Tobacco use date assessed 12/13/24 12/13/24 10:51 Patient Tobacco Use Status Never used Tobacco 12/13/24 10:51 e-Cigarette/Vaping Use Never Used 12/13/24 10:51 PHQ-9: PHQ-9 Score PHQ-9: Total score 7 12/13/24 10:51 Depression Screening Interpretation: Positive Depression Screening Follow-up: Existing condition and Follow-up Visit Requested Thrive Assessment: Date of Thrive Assessment Date Thrive assessed 12/13/24 12/13/24 10:51 Currently or been in a relationship where the following occur: No concerns reported Resp Effort & Inspection: normal respiratory effort Auscultation: clear to auscultation bilaterally Cardio Jugular venous distension: no JVD Rate: regular rate Rhythm: regular rhythm Heart sounds: S1 normal heart sound present and S2 normal heart sound present Extrem General: Yes full ROM Results AMB Hemoglobin A1c AMB Hemoglobin A1c 12.8 % Last Edit by ALANNA Delaney on 12/13/24 11:12 Coding Level of Care Code Est Pt Level 4 (96900) Complex EM visit Add On G2211 Diagnoses Type 2 diabetes mellitus without complication, without long-term current use of insulin E11.9 Diabetes mellitus type: type 2 Diabetes mellitus watermelon harvesting supervisor insulin use: without care home use Diabetes mellitus complication status: without complication Hyperlipidemia LDL goal <70 E78.5 Mild major depression F32.0 Essential hypertension I10 Renal cyst N28.1 Alzheimer's dementia G30.9; F02.80 Spondylosis of lumbar region without myelopathy or radiculopathy M47.816 Additional Codes PHQ-9 - 76674 - PHQ-9 Billing: Yes ([id number]) MARCIAL-7 Assessment Billing - MARCIAL-7 Assessment Tool: MARCIAL-7 Assessment [id number] ([id number]) Time Spent (min) 24 Assessment & Plan Assessment & Plan (1) Diabetes mellitus: Code(s): E11.9 - Type 2 diabetes mellitus without complications Category: Medical Qualifiers: Diabetes mellitus type: type 2 Diabetes mellitus watermelon harvesting supervisor insulin use: without watermelon harvesting supervisor use Diabetes mellitus complication status: without complication Qualified Code(s): E11.9 - Type 2 diabetes mellitus without complications (2) Hyperlipidemia LDL goal <70: Code(s): E78.5 - Hyperlipidemia, unspecified Category: Medical (3) Mild major depression: Code(s): F32.0 - Major depressive disorder, single episode, mild Category: Medical (4) Essential hypertension: Code(s): I10 - Essential (primary) hypertension Category: Medical (5) Renal cyst: Code(s): N28.1 - Cyst of kidney, acquired Category: Medical (6) Alzheimer's dementia: Code(s): G30.9 - Alzheimer's disease, unspecified; F02.80 - Dementia in other diseases classified elsewhere, unspecified severity, without behavioral disturbance, psychotic disturbance, mood disturbance, and anxiety Category: Medical (7) Spondylosis of lumbar region without myelopathy or radiculopathy: Code(s): M47.816 - Spondylosis without myelopathy or radiculopathy, lumbar region Category: Medical Plan Plan Patient was informed and verbally consented to the use of an ambient scribe for clinic note documentation during this visit. 1. Right upper quadrant pain R10.11 The plan for abdominal pain includes increasing the dose of Trulicity and monitoring the patient's response. A referral to a painter sign maintenance is also planned for further evaluation. 2. Slow transit constipation K59.01 Constipation is managed with docusate, and the patient is advised to continue this regimen. 3. 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 4. Allergic rhinitis, unspecified J30.9 Allergic rhinitis management includes considering a referral to an clerk specialist for further evaluation. 5. Cyst of kidney, acquired N28.1 Bilateral renal cysts will be evaluated by a urologist as part of the management plan. Orders: Orders AMB Hemoglobin A1c Today Z13.9 - Encounter for screening, unspecified Vitamin D 25-OH Total Today E55.9 - Vitamin D deficiency, unspecified Vitamin B12 and Folate Today E53.8 - Deficiency of other specified B group vitamins Comprehensive Met. Panel Today E11.9 - Type 2 diabetes mellitus without complications, I10 - Essential (primary) hypertension US renal BI Today N28.1 - Cyst of kidney, acquired Lipid Panel Today E78.5 - Hyperlipidemia, unspecified Microalbumin, Random (w Creat) Today R80.9 - Proteinuria, unspecified Referrals Gastroenterology Referral R10.9 - Unspecified abdominal pain Allergy & Immunology Referral J30.9 - Allergic rhinitis, unspecified Urology Referral N28.1 - Cyst of kidney, acquired Medications: New sucralfate (Carafate) 1 g PO BID 60 tabs 0RF 30 days dulaglutide (Trulicity) 3 mg (0.5 mL) subcut QWEEK 6.5 mL 1RF 90 days Changed From insulin glargine U-300 conc (Toujeo SoloStar U-300 Insulin) 25 units subcut BEDTIME E11.9 - Type 2 diabetes mellitus without complications To insulin glargine U-300 conc (Toujeo SoloStar U-300 Insulin) 30 units (0.1 mL) subcut BEDTIME 9 mL 3RF 90 days E11.9 - Type 2 diabetes mellitus without complications Discontinued dulaglutide (Trulicity) Discontinued Reason: Patient Completed Course 1.5 mg (0.5 mL) subcut QWEEK 30 days 2.5 mL 1RF
--- OUTSIDE RECORDS SUMMARY | 2024-12-13 11:31 | XMS_ITS | Clinical Summary ---
Author Organization [employer] Address [address] [facility] [address] [place] [address] Care Team Providers Care Oracle Fusion Developer Name Role Phone Unavailable Primary Care Provider [...] patient's age to complete this topic Insurance [address] [address]
--- OUTSIDE RECORDS SUMMARY | 2024-12-13 11:31 | XMS_ITS | Encounter Summary ---
Author Organization [employer] Address [address] [facility] [address] [place] [address] Care Team Providers Care It Programmer Name Role Phone Paola Montenegro MD Primary Care Provider [phone] Encounter Details Date Type Department Care Team ([facility] st Contact Info) Description 03/12/2022 Abstract [facility] ADULT DENTAL [address] [place] [address] Dental, Provider, DDS Social History Tobacco Use Types Packs/Day Years Used Date Smoking Tobacco: Never Assessed Comments Unknown Sex and Gender Information Value Date Recorded Sex Assigned at Female 02/17/2022 10:15 AM EDT Legal Sex Female 10:15 AM EDT Gender Identity Female 02/17/2022 10:15 AM EDT Sexual Orientation Straight 02/17/2022 10 :15 AM EDT documented as of this encounter Plan of Treatment Not on file documented as of this encounter Procedures Procedure Name Priority Date/Time Associated Diagnosis Comments 18,19,20,27,28,29,30,31 PARTIAL DENTURE - RESIN Routine 03/12/2022 12:00 AM EST 1,2,3,5,10,12,13,14,15 PARTIAL DENTURE - RESIN Routine 03/12/2022 12:00 AM EST 21 B COMPOSITE FILLING Routine 12:00 AM EST 25 MIF COMPOSITE FILLING Routine 022 12:00 AM EST 22 I COMPOSITE FILLING Routine 12:00 AM EST 6 DF COMPOSITE FILLING Routine 12:00 AM EST 4 B COMPOSITE FILLING Routine 03/12/2022 12:00 AM EST 4 MO AMALGAM FILLING Routine 03/12/2022 12:00 AM EST 5 EXTRACTION Routine 03/12/2022 12:00 AM EST 32 EXTRACTION Routine 03/12/2022 12:00 AM EST 31 EXTRACTION Routine 03/12/2022 12:00 AM EST 30 EXTRACTION Routine 03/12/2022 12:00 AM EST 29 EXTRACTION Routine 03/12/2022 12:00 AM EST 28 EXTRACTION Routine 03/12/2022 12:00 AM EST 27 EXTRACTION Routine 03/12/2022 12:00 AM EST 20 EXTRACTION Routine 03/12/2022 12:00 AM EST 19 EXTRACTION Routine 03/12/2022 12:00 AM EST 18 EXTRACTION Routine 03/12/2022 12:00 AM EST 17 EXTRACTION Routine 03/12/2022 12:00 AM EST 16 EXTRACTION Routine 03/12/2022 12:00 AM EST 15 EXTRACTION Routine 03/12/2022 12:00 AM EST 14 EXTRACTION Routine 03/12/2022 12:00 AM EST 13 EXTRACTION Routine 03/12/2022 12:00 AM EST 12 EXTRACTION Routine 03/12/2022 12:00 AM EST 10 EXTRACTION Routine 03/12/2022 12:00 AM EST 3 EXTRACTION Routine 03/12/2022 12:00 AM EST 2 EXTRACTION Routine 03/12/2022 12:00 AM EST 1 EXTRACTION Routine 03/12/2022 12:00 AM EST 9 ROOT CANAL Routine 03/12/2022 12:00 AM EST 8 ROOT CANAL Routine 03/12/2022 12:00 AM EST 7 ROOT CANAL Routine 03/12/2022 12:00 AM EST 9 PFM CROWN Routine 03/12/2022 12:00 AM EST 8 PFM CROWN Routine 03/12/2022 12:00 AM EST 7 PFM CROWN Routine 03/12/2022 12:00 AM EST documented in this encounter Visit Diagnoses Not on filedocumented in this encounter Care Teams It Programmer Relationship Specialty Start Date End Date Paola Montenegro MD [address] [place] [id number] PCP - General Family Medicine 06/06/15 08/24/23 documented as of this encounter
--- OUTSIDE RECORDS SUMMARY | 2024-12-13 11:31 | XMS_ITS | Encounter Summary ---
Author Organization [employer] Address [address] [facility] 7t [place] [address] Care Team Providers Care Signal Apprentice Name Role Phone Paola Montenegro MD Primary Care Provider [phone] Encounter Details Date Type Department Care Team ([facility] st Contact Info) Description 03/21/2022 Abstract [facility] ADULT DENTAL [address] [place], [place] [id number] Frandy Stone DDS [address] [place], [place] [phone] Social History Tobacco Use Types Packs/Day Years Used Date Smoking Tobacco: Never Smokeless Tobacco: Never Alcohol Use Standard Drinks/Week Comments Never 0 (1 standard drink = 0.6 oz pur e alcohol) Comments Unknown Sex and Gender Information Value Date Recorded Sex Assigned at Female 02/17/2022 10:15 AM EDT Legal Sex Female 10:15 AM EDT Gender Identity Female 02/17/2022 10:15 AM EDT Sexual Orientation Straight 02/17/2022 10 :15 AM EDT COVID-19 Exposure Response Date Recorded In the last 10 days, have yo u been in contact with someone who was confirmed or suspected to have Coronavirus/COVID-19? No / Unsure 03/20/2022 8:31 AM EST documented as of this encounter Plan of Treatment Not on file documented as of this encounter Visit Diagnoses Not on filedocumented in this encounter Care Teams Signal Apprentice Relationship Specialty Start Date End Date Paola Montenegro MD [address] [place], [place] [phone] PCP - General Family Medicine 06/06/15 08/24/23 documented as of this encounter
--- OUTSIDE RECORDS SUMMARY | 2024-12-13 11:31 | XMS_ITS | Encounter Summary ---
Author Organization [employer] Address [address] [facility] [address] [place] [address] Care Team Providers Care Eap Counselor Name Role Phone Paola Montenegro MD Primary Care Provider [phone] Encounter Details Date Type Department Care Team (Latest Contact Info) Description 11/21/2021 Abstract [facility] CONVERSIONS Dental, Provider, DDS Social History Tobacco Use [...] on filedocumented in this encounter Care Teams Eap Counselor Relationship Specialty Start Date End Date Paola Montenegro MD [address] [place] [phone] PCP - General Family Medicine 06/06/15 08/24/23 documented as of this encounter
--- OUTSIDE RECORDS SUMMARY | 2024-12-13 11:31 | XMS_ITS | Clinical Summary ---
Author Organization [facility] Address [address] [facility] [address] [place] [address] Phone Care Team Providers Care Metal Cabinet Finisher Name Role Phone Chani Salguero MD Primary Care Provider [phone] Allergies No known active allergies Medications aspirin [...] patient's age to complete this topic Insurance [facility] ([id number]) [facility] ([id number]) Care Teams Metal Cabinet Finisher Relationship Specialty Start Date End Date Chani Salguero MD [address] [place], [place] PCP - General 04/30/20
--- OUTSIDE RECORDS SUMMARY | 2024-12-13 11:31 | XMS_ITS | Encounter Summary ---
Author Organization [employer] Address [address] [facility] [address] [place] [address] Care Team Providers Care Lineman Apprentice Name Role Phone Paola Montenegro MD Primary Care Provider [phone] Encounter Details Date Type Department Care Team (Latest Contact Info) Description 07/18/2020 Abstract [facility] CONVERSIONS Dental, Provider, DDS Social History Tobacco [...] on filedocumented in this encounter Care Teams Lineman Apprentice Relationship Specialty Start Date End Date Paola Montenegro MD [address] [place] [phone] PCP - General Family Medicine 06/06/15 08/24/23 documented as of this encounter
== END 2024-12-13 11:38 | disposition home or self-care (01) ==
LOC: HO.HMCH 10:39
PROVIDERS: PCP Internal Medicine; Visit Provider Internal Medicine
DX: E11.69 Type 2 diabetes mellitus with other specified complication (principal); G30.9 Alzheimer's disease, unspecified; F02.80 Dementia in other diseases classified elsewhere, unspecified severity, without behavioral disturbance, psychotic disturbance, mood disturbance, and anxiety; E78.5 Hyperlipidemia, unspecified; F32.0 Major depressive disorder, single episode, mild; I10 Essential (primary) hypertension; N28.1 Cyst of kidney, acquired; M47.816 Spondylosis without myelopathy or radiculopathy, lumbar region

== ENCOUNTER → 2024-12-13 10:38 | Outpatient (BNVA) | payer OTHER, SELFPAY | PROVIDERS: PCP Internal Medicine; Visit Provider Internal Medicine | DX: E11.9 Type 2 diabetes mellitus without complications (principal); E78.5 Hyperlipidemia, unspecified; G30.9 Alzheimer's disease, unspecified; F02.80 Dementia in other diseases classified elsewhere, unspecified severity, without behavioral disturbance, psychotic disturbance, mood disturbance, and anxiety; F41.9 Anxiety disorder, unspecified; J30.2 Other seasonal allergic rhinitis; N28.1 Cyst of kidney, acquired; F32.0 Major depressive disorder, single episode, mild; I10 Essential (primary) hypertension; M47.816 Spondylosis without myelopathy or radiculopathy, lumbar region; R10.11 Right upper quadrant pain; K59.01 Slow transit constipation; M51.361 Other intervertebral disc degeneration, lumbar region with lower extremity pain only; J30.9 Allergic rhinitis, unspecified; E55.9 Vitamin D deficiency, unspecified; E53.8 Deficiency of other specified B group vitamins | CPT/HCPCS: 83036; 96127; 99212 ==

== ENCOUNTER 2024-12-23 10:33 | Outpatient (AMB) | payer OTHER, SELFPAY ==
--- NOTE | 2024-12-23 10:35 | MHC.PC.OV ---
Vital Signs 12/23/24 10:38 Height 4 ft 10 in Weight 133 lb BMI 27.8 BP 120/70 Blood Pressure Location Lt brachial Position Sitting Temp 97.1 F Temp Source Temporal Artery Scan Intake Visit Reasons: ongoing nausea/ABD pain/not eating Intake Note: Patient is here to follow up on ongoing nausea, abdominal pain, dizziness and not eating. [employer] Consultant Required: Yes [employer] Consultant Language: Armenian Information Interpreted: non-clinical & clinical Auricular Therapist: Present Accompanied by: Daughter Allergies No Known Allergies (No Known Allergies*) Allergy (Verified 12/23/24 10:37) Tobacco use date assessed: 12/23/24 Fall risk assessment: No Falls in past year Last assessed Fall Risk: 12/23/24 Dental Screening Dental Screen Date: 12/13/24 HPI HPI Comments History of Present Illness Details 79 y/o Female patient who presents to the clinic today for follow up. Pt has Acute on chronic Abdominal pain associated with Nausea and Constipation. Pt has been in the ED multiple times for this - CT Abdomen showed: Hepatic Steatosis and Mild Diverticulosis in the absence of Diverticulitis. Pt unable to eat due to Nausea - asking for Nutrition Supplement liquids. Pt has an appointment with GI in February. [facility] Medical History Skin lesion Mixed hyperlipidemia Essential hypertension Left knee pain Left hip pain Left foot pain Unsteady gait Low back pain Spondylosis of lumbar region without myelopathy or radiculopathy Hypovitaminosis D Nausea Moderate asthma Fibromyalgia Diabetes mellitus B12 deficiency Surgical History History of right oophorectomy History of tubal ligation Family History Father CVD (cardiovascular disease) Diabetes Mother Diabetes Hypertension CVD (cardiovascular disease) Sister Colon cancer Breast cancer Blind Uterine cancer Family/Other Mental health disorder Social History Housing: Apartment Alcohol intake: never Patient Tobacco Use Status: Never used Tobacco e-Cigarette/Vaping Use: Never Used Second Hand Smoke Exposure: No service: No Current occupational status: unemployed and disabled Cognitive needs: Yes Hearing needs: No Vision needs: Yes Questionnaire Thrive Questionnaire Date Thrive assessed: 12/13/24 I am a: Patient What is your living situation today?: I have a steady place to live Within the past 12 months, did the food you bought not last and you didn't have the money to get more?: Never true Within the past 12 months, did you worry whether your food would run out before you got money to buy more?: Never true Do you have trouble paying for medicines?: No Do you have trouble getting transportation to medical appointments?: No Do you have trouble paying your heating and electricity bill?: No Do you have trouble taking care of your child, family member or friend?: No Do you have trouble with day-to-day activities such as bathing, preparing meals, shopping, managing finances, etc.?: No Are you currently unemployed and looking for a job?: Yes Are you interested in more education?: No Please select the resources that you would like help with: None Currently or been in a relationship where the following occur: No concerns reported THRIVE Score: 0 MARCIAL-7 AMB Questionnaire MARCIAL-7 Date MARCIAL - 7 assessed: 12/13/24 Source: Developed by Drs. Shayne Lennon, Tiff Boudreaux, Amado Andres and colleagues, with an educational blaire from [employer] Review of Systems Const All systems reviewed & are unremarkable except as noted in HPI and below Physical exam (Primary Care) Vital Signs: Last Vital Signs Temp 97.1 F 12/23/24 10:38 BP 120/70 12/23/24 10:38 BMI result Body Mass Index 27.8 Tobacco/Smoking Status: Tobacco use Status Tobacco use date assessed 12/23/24 12/23/24 10:43 Patient Tobacco Use Status Never used Tobacco 12/23/24 10:36 e-Cigarette/Vaping Use Never Used 12/23/24 10:36 Thrive Assessment: Date of Thrive Assessment Date Thrive assessed 12/13/24 12/23/24 10:36 Currently or been in a relationship where the following occur: No concerns reported Const General: no acute distress Nutritional Appearance: overweight Orientation/consciousness: patient oriented x3 Resp Effort & Inspection: normal respiratory effort Auscultation: clear to auscultation bilaterally Cardio Heart sounds: S1 normal heart sound present and S2 normal heart sound present GI Inspection: Yes Abdominal panniculus present and Yes obesity Palpation (GI): Soft to palpation, not firm, Tenderness to palpation present (GI), no guarding and No hepatosplenomegaly present Neuro General: patient oriented x3, gait normal and moves all extremities Coding Level of Care Code Est Pt Level 4 (82448) Diagnoses Abdominal pain R10.9 Nausea R11.0 Time Spent (min) 20 Assessment & Plan Assessment & Plan (1) Abdominal pain: Code(s): R10.9 - Unspecified abdominal pain Category: Medical Plan: F/U with GI as scheduled. Could be related to Constipation - ordered Docusate. increase Fiber in Diet. (2) Nausea: Code(s): R11.0 - Nausea Category: Medical Plan: Ordered Zofran Avoid Oily greasy foods Medications: New metoclopramide HCl (Reglan) 5 mg PO Q6H 20 tabs 0RF R11.0 - Nausea ondansetron 8 mg PO Q8H 30 tabs 0RF R11.0 - Nausea Changed From docusate calcium 100 mg PO DAILY R10.9 - Unspecified abdominal pain To docusate calcium 240 mg PO DAILY 30 caps 0RF R10.9 - Unspecified abdominal pain
[2024-12-23 10:38] VITALS: BP 120/70; TEMP 36.2; BMI 27.8
--- OUTSIDE RECORDS SUMMARY | 2024-12-23 11:34 | XMS_ITS | Clinical Summary ---
Author Organization [employer] Address [address] [facility] [address] [place] [address] Care Team Providers Care Primary Therapist Name Role Phone Unavailable Primary Care Provider [...] 10/17/2023 10/16/2013, 10/16/2013, 07/14/2011, Additional history exists Tobacco Screening 08/20/2024 08/21/2023 COVID-19 Vaccine ( season) 2024 07/30/2020, 07/02/2020 Influenza Vaccine (#1) 2024 , 03/02/2019, 01/20/2018, Additional history exists Hepatitis B [...] patient's age to complete this topic Insurance [address] [address]
--- OUTSIDE RECORDS SUMMARY | 2024-12-23 11:34 | XMS_ITS | Encounter Summary ---
Author Organization [employer] Address [address] [facility] [address] [place] [address] Care Team Providers Care Wardrobe Manager Name Role Phone Paola Montenegro MD Primary Care Provider [phone] Encounter Details Date Type Department Care Team (Latest Contact Info) Description 07/18/2020 Abstract [facility] Dental, Provider, DDS Social History [...] on filedocumented in this encounter Care Teams Wardrobe Manager Relationship Specialty Start Date End Date Paola Montenegro MD [address] [place] [id number] PCP - General Family Medicine 06/06/15 08/24/23 documented as of this encounter
--- OUTSIDE RECORDS SUMMARY | 2024-12-23 11:34 | XMS_ITS | Encounter Summary ---
Author Organization [employer] Address [address] [facility] [address] [place] [address] Care Team Providers Care Wallpaper Hanger Name Role Phone Paola Montenegro MD Primary Care Provider [phone] Encounter Details Date Type Department Care Team ([facility] st Contact Info) Description 03/21/2022 Abstract [facility]ULT D[facility]AL [address] [place], [place] [phone] Frandy Stone DDS [address] [place], [place] [phone] Social History Tobacco Use Types Packs/Day Years [...] on filedocumented in this encounter Care Teams Wallpaper Hanger Relationship Specialty Start Date End Date Paola Montenegro MD [address] [place], [place] [phone] PCP - General Family Medicine 06/06/15 08/24/23 documented as of this encounter
--- OUTSIDE RECORDS SUMMARY | 2024-12-23 11:34 | XMS_ITS | Encounter Summary ---
Author Organization [employer] Address [address] [facility] [address] [place] [address] Care Team Providers Care Dairy Husbandry Worker Name Role Phone Paola Montenegro MD Primary Care Provider [phone] Encounter Details Date Type Department Care Team (Latest Contact Info) Description 11/21/2021 Abstract [facility] Dental, Provider, DDS Social History [...] on filedocumented in this encounter Care Teams Dairy Husbandry Worker Relationship Specialty Start Date End Date Paola Montenegro MD [address] [place] [phone] PCP - General Family Medicine 06/06/15 08/24/23 documented as of this encounter
--- OUTSIDE RECORDS SUMMARY | 2024-12-23 11:34 | XMS_ITS | Clinical Summary ---
Author Organization [facility] Address [address] [facility] [address] [place] [address] Phone Care Team Providers Care Contracts Officer Name Role Phone Chani Salguero MD Primary Care Provider [phone] Allergies No known active allergies Medications aspirin [...] patient's age to complete this topic Insurance [facility] ([id number]) [facility] ([id number]) Care Teams Contracts Officer Relationship Specialty Start Date End Date Chani Salguero MD [address] [place], [place] PCP - General 04/30/20
--- OUTSIDE RECORDS SUMMARY | 2024-12-23 11:34 | XMS_ITS | Encounter Summary ---
Author Organization [employer] Address [address] [facility] [address] [place] [address] Care Team Providers Care Joist Setter Name Role Phone Paola Montenegro MD Primary Care Provider [phone] Encounter Details Date Type Department Care Team ([facility] st Contact Info) Description 03/12/2022 Abstract [facility] ADULT D[facility]AL [address] [place] [address] Dental, Provider, DDS Social History Tobacco Use [...] on filedocumented in this encounter Care Teams Joist Setter Relationship Specialty Start Date End Date Paola Montenegro MD [address] [place] [phone] PCP - General Family Medicine 06/06/15 08/24/23 documented as of this encounter
== END 2024-12-23 11:02 | disposition home or self-care (01) ==
LOC: HO.HMCH 10:34
PROVIDERS: PCP Internal Medicine; Visit Provider Nurse Practitioner Family
DX: R10.9 Unspecified abdominal pain (principal); R11.0 Nausea

== ENCOUNTER → 2024-12-23 10:33 | Outpatient (BNVA) | payer OTHER, SELFPAY | PROVIDERS: PCP Internal Medicine; Visit Provider Nurse Practitioner Family | DX: R11.0 Nausea (principal); R10.9 Unspecified abdominal pain; K59.00 Constipation, unspecified | CPT/HCPCS: 99212 ==

== ENCOUNTER 2024-12-27 18:03 | Emergency (ER) | payer OTHER, SELFPAY ==
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
[2024-12-27 19:42] VITALS: BP 125/67; PULSE 90; RESP 16; TEMP 36.8; O2SAT 95; BMI 28.3
--- OUTSIDE RECORDS SUMMARY | 2024-12-27 21:53 | XMS_ITS | Clinical Summary ---
Author Organization [facility] Address [address] [facility] [address] [place] [address] Phone Care Team Providers Care Battery Starter Name Role Phone Chani Salguero MD Primary Care Provider [phone] Allergies No known active allergies Medications aspirin [...] patient's age to complete this topic Insurance [facility] ([id number]) [facility] ([id number]) Care Teams Battery Starter Relationship Specialty Start Date End Date Chani Salguero MD [address] [place], [place] PCP - General 04/30/20
[2024-12-27 22:23] VITALS: BP 114/69; PULSE 89; RESP 15; TEMP 36.3; O2SAT 95
[2024-12-27 22:57] VITALS: BP 114/69; PULSE 89; RESP 15; TEMP 36.3; O2SAT 95
== END 2024-12-27 23:08 | disposition home or self-care (01) ==
PROVIDERS: Emergency Provider Emergency Medicine; PCP Internal Medicine
DX: S16.1XXA Strain of muscle, fascia and tendon at neck level, initial encounter (principal); S40.021A Contusion of right upper arm, initial encounter; I10 Essential (primary) hypertension; F03.90 Unspecified dementia, unspecified severity, without behavioral disturbance, psychotic disturbance, mood disturbance, and anxiety; V43.62XA Car passenger injured in collision with other type car in traffic accident, initial encounter; Y93.89 Activity, other specified; Y92.488 Other paved roadways as the place of occurrence of the external cause; Y99.8 Other external cause status; Z79.899 Other long term (current) drug therapy
CPT/HCPCS: 70450; 72125; 99283; 99284

== ENCOUNTER → 2024-12-27 19:53 | Outpatient (BNV) | payer OTHER, SELFPAY | PROVIDERS: Emergency Provider Emergency Medicine; PCP Internal Medicine; Visit Provider Student in an Organized Health Care Education/Training Program | DX: M47.812 Spondylosis without myelopathy or radiculopathy, cervical region (principal); R90.82 White matter disease, unspecified | CPT/HCPCS: 70450; 72125 ==

== ENCOUNTER 2025-01-02 08:56 | Outpatient (REF) | payer OTHER, SELFPAY ==
[2025-01-02 10:03] LABS: Microalbum/Creatinine Ratio Ur 40.0 ug/mg cr (<30)
[2025-01-02 10:22] LABS: Alanine Aminotransferase 19 U/L (0-31); Albumin Level 4.4 g/dL (3.5-5.0); Alkaline Phosphatase 75 U/L (39-117); Anion Gap 13 (12-20); Aspartate Amino Transferase 25 U/L (5-31); Blood Urea Nitrogen 18 mg/dL (9-16); Calcium 9.3 mg/dL (8.4-10.2); Carbon Dioxide 25 mmol/L (22-29); Chloride 107 mmol/L (96-108); Cholesterol 217 mg/dL (<200); Estimated Glomerular Filt Rate > 60; HDL Cholesterol 54 mg/dL (>40); Potassium 4.6 mmol/L (3.3-5.1); Sodium 140 mmol/L (135-145); Total Protein 7.1 g/dL (6.5-8.0); Triglycerides 112 mg/dL (<150)
--- OUTSIDE RECORDS SUMMARY | 2025-01-02 10:22 | XMS_ITS | Clinical Summary ---
Author Organization [employer] Address [address] [facility] [address] [place] [address] Care Team Providers Care Forensic Anthropologist Name Role Phone Unavailable Primary Care Provider [...] patient's age to complete this topic [place] [address] [place] [address]
--- OUTSIDE RECORDS SUMMARY | 2025-01-02 10:22 | XMS_ITS | Encounter Summary ---
Author Organization [employer] Address [address] [facility] [address] [place] [address] Care Team Providers Care Commercial Drone Pilot Name Role Phone Paola Montenegro MD Primary Care Provider [phone] Encounter Details Date Type Department Care Team (Latest Contact Info) Description 07/18/2020 Abstract [facility] CONVERSIONS Dental, Provider, DDS Social History [...] on filedocumented in this encounter Care Teams Commercial Drone Pilot Relationship Specialty Start Date End Date Paola Montenegro MD [address] [place] [id number] PCP - General Family Medicine 06/06/15 08/24/23 documented as of this encounter
--- OUTSIDE RECORDS SUMMARY | 2025-01-02 10:22 | XMS_ITS | Encounter Summary ---
Author Organization [employer] Address [address] [place] [address] Care Team Providers Care Weaving Instructor Name Role Phone Paola Montenegro MD Primary Care Provider [phone] Encounter Details Date Type Department Care Team ([facility] Contact Info) Description 03/12/2022 Abstract [facility] ADULT DENTAL [address] [place] [address] Dental, Provider, DDS Social History Tobacco Use [...] AM EST 22 I COMPOSITE FILLING Routine 2 12:00 AM EST 6 DF COMPOSITE FILLING [...] on filedocumented in this encounter Care Teams Weaving Instructor Relationship Specialty Start Date End Date Paola Montenegro MD [address] [place] [id number] PCP - General Family Medicine 06/06/15 08/24/23 documented as of this encounter
--- OUTSIDE RECORDS SUMMARY | 2025-01-02 10:22 | XMS_ITS | Encounter Summary ---
Author Organization [employer] Address [address] [facility] 7t [place] [address] Care Team Providers Care Podiatric Aide Name Role Phone Paola Montenegro MD Primary Care Provider Encounter Details Date Type Department Care Team (Latest Contact Info) Description 11/21/2021 Abstract [facility] CONVERSIONS Dental, Provider, DDS Social [...] on filedocumented in this encounter Care Teams Podiatric Aide Relationship Specialty Start Date End Date Paola Montenegro MD [address] [place] [id number] PCP - General Family Medicine 06/06/15 08/24/23 documented as of this encounter
--- OUTSIDE RECORDS SUMMARY | 2025-01-02 10:22 | XMS_ITS | Encounter Summary ---
Author Organization [employer] Address [address] [facility] 7t [place] [address] Care Team Providers Care Furniture Finisher Apprentice Name Role Phone Paola Montenegro MD Primary Care Provider [phone] Encounter Details Date Type Department Care Team ([facility] st Contact Info) Description 03/21/2022 Abstract [facility] ADULT DENTAL [address] [place], [place] [phone] Frandy Stone DDS [address] [place], [place] [phone] Social History Tobacco Use Types Packs/Day Years [...] on filedocumented in this encounter Care Teams Furniture Finisher Apprentice Relationship Specialty Start Date End Date Paola Montenegro MD [address] [place], [place] [phone] PCP - General Family Medicine 06/06/15 08/24/23 documented as of this encounter
[2025-01-02 10:41] LABS: Folate 11.9 ng/mL (> or = 4.0); Vitamin B12 595 pg/mL (200-900)
== END 2025-01-02 08:57 | disposition home or self-care (01) ==
LOC: HO.LAB 08:56
PROVIDERS: PCP Internal Medicine; Visit Provider Internal Medicine
DX: G30.1 Alzheimer's disease with late onset (principal); F02.A4 Dementia in other diseases classified elsewhere, mild, with anxiety; E11.9 Type 2 diabetes mellitus without complications; I10 Essential (primary) hypertension; E53.8 Deficiency of other specified B group vitamins; E78.5 Hyperlipidemia, unspecified; R80.9 Proteinuria, unspecified; E55.9 Vitamin D deficiency, unspecified; Z79.899 Other long term (current) drug therapy
CPT/HCPCS: 36415; 80053; 80061; 82043; 82306; 82570; 82607; 82746; 97802; 99212

== ENCOUNTER 2025-01-02 10:30 | Outpatient (AMB) | payer OTHER, SELFPAY ==
--- NOTE | 2025-01-02 10:39 | MHC.OFFVIS ---
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 Her symptoms started years ago. Her daughter was taking care of her. She was doing crossword puzzles and stated that she was enjoying it. Mood was okay. Sleep was also. No new symptoms. [facility] Medical History Skin lesion Mixed hyperlipidemia Essential hypertension Left knee pain Left hip pain Left foot pain Unsteady gait Low back pain Spondylosis of lumbar region without myelopathy or radiculopathy Hypovitaminosis D Nausea Moderate asthma Fibromyalgia Diabetes mellitus B12 deficiency Surgical History History of right oophorectomy History of tubal ligation Family History Father CVD (cardiovascular disease) Diabetes Mother Diabetes Hypertension CVD (cardiovascular disease) Sister Colon cancer Breast cancer Blind Uterine cancer Family/Other Mental health disorder Social History Housing: Apartment Alcohol intake: never Patient Tobacco Use Status: Never used Tobacco e-Cigarette/Vaping Use: Never Used Second Hand Smoke Exposure: No service: No Current occupational status: unemployed and disabled Cognitive needs: Yes Hearing needs: No Vision needs: Yes Review of Systems Const Details: No hallucinations or delusions or any other significant psychotic symptoms. Physical Exam Neuro Other: Mental Status: Alert and oriented to person, place, and time. Normal attention. Normal spontaneous speech, fluency, and comprehension. Cranial Nerves: CN II: Visual owens full to confrontation, visual acuity intact. CN III, IV, : Pupils equal, round, reactive to light and accommodation. Extraocular movements are normal. CN V: Facial sensation is normal. CN VII: Facial movements symmetrical. CN VIII: Hearing intact to bedside conversation is normal. CN IX, X: Palate elevates symmetrically. CN XI: Shoulder shrug and head turn symmetrical. CN XII: Tongue midline without atrophy or fasciculations. Extrapyramidal: Full facial expressions and blinking. No rigidity. Movements are appropriate with no tremor or abnormality. Speech: Normal; no dysarthria or tremor. Assessment & Plan Assessment & Plan (1) Dementia with anxiety: Comment: [place] brain WO at [facility] in October 2021: mild diff atrophy, mild to mod MVD. Code(s): F03.94 - Unspecified dementia, unspecified severity, with anxiety Category: Medical Qualifiers: Alzheimer's disease onset: late onset Dementia severity: mild Dementia type: Alzheimer's Qualified Code(s): G30.1 - Alzheimer's disease with late onset; F02.A4 - Dementia in other diseases classified elsewhere, mild, with anxiety Plan Impression: Dementia with anxiety do Medications: Changed From donepezil 10 mg (2 x 5 mg) PO BEDTIME 30 days 60 tabs 1RF To donepezil 10 mg (2 x 5 mg) PO BEDTIME 180 tabs 1RF 90 days Refilled venlafaxine ER 75 mg PO DAILY 90 caps 1RF 90 days Coding Level of Care Code Est Pt Level 4 (57826) Diagnoses 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
--- OUTSIDE RECORDS SUMMARY | 2025-01-02 13:27 | XMS_ITS | Clinical Summary ---
Author Organization [facility] Address [address] [facility] [address] [place] [address] Phone Care Team Providers Care Furnace Combination Analyst Name Role Phone Chani Salguero MD Primary Care Provider [phone] Allergies No known active allergies Medications aspirin [...] [facility] ([id number]) Care Teams Furnace Combination Analyst Relationship Specialty Start Date End Date Chani Salguero MD [address] [place], [place] PCP - General 04/30/20
== END 2025-01-02 10:48 | disposition home or self-care (01) ==
LOC: HO.HSM 10:30
PROVIDERS: PCP Internal Medicine; Visit Provider Psychiatry & Neurology Neurology
DX: G30.1 Alzheimer's disease with late onset (principal); F02.A4 Dementia in other diseases classified elsewhere, mild, with anxiety
CPT/HCPCS: 99214

== ENCOUNTER 2025-01-02 13:23 | Outpatient (AMB) | payer OTHER, SELFPAY ==
--- NOTE | 2025-01-02 13:52 | MHC.AMNUTRGE ---
VS Expanded 01/02/25 13:53 Height 4 ft 10 in Weight 138 lb 7.205 oz BMI 28.9 Intake Visit Reasons: Type 2 diabetes mellitus without complications Allergies No Known Allergies (No Known Allergies*) Allergy (Verified 12/27/24 19:48) Nutrition Presentation Details: Pt presents for MNT for T2DM. Pt presents with daughter during this appt Pt has alzheimer's dementia, most recent A1c at 12.8% on 12/12 Daughter reports Pt is eating well, having 3 meals/day and having snacks in between meals Daughter reports working on providing foods Pt enjoys but often Pt refuses certain foods that are lower in carbohydrates BS Monitoring Most Recent Diabetes Results: Microalb/Creat Ratio, (<30) 40.0 ug/mg cr H 01/02/25 Cholesterol, (<200) 217 mg/dL H 01/02/25 HDL Cholesterol, (>40) 54 mg/dL 01/02/25 Triglycerides, (<150) 112 mg/dL 01/02/25 Creatinine, (0.5-1.4) 0.82 mg/dL 01/02/25 BUN, (9-16) 18 mg/dL H 01/02/25 Sodium, (135-145) 140 mmol/L 01/02/25 Potassium, (3.3-5.1) 4.6 mmol/L 01/02/25 Chloride, (96-108) 107 mmol/L 01/02/25 Carbon Dioxide, (22-29) 25 mmol/L 01/02/25 Calcium, (8.4-10.2) 9.3 mg/dL 01/02/25 AST, (5-31) 25 U/L 01/02/25 ALT, (0-31) 19 U/L 01/02/25 Total Protein, (6.5-8.0) 7.1 g/dL 01/02/25 Albumin, (3.5-5.0) 4.4 g/dL 01/02/25 GCO-[id number]-Jp.Jeor Equation Height: 4 ft 10 in Weight: 138 lb Resting Metabolic Rate: 996.40 Calculated Activity Level: Mild Activity Calories Needed to Maintain Weight: 1370.05 Diagnosis Nutrition problem #1: altered nutrition labs As related to (etiology) #1: diagnosis As evidenced by (sign/symptom) #1: abnormal lab values Monitoring/Goals Nutrition problem monitoring: level of knowledge/skill, total PRO intake and glucose, fasting PFSH Medical History Skin lesion Mixed hyperlipidemia Essential hypertension Left knee pain Left hip pain Left foot pain Unsteady gait Low back pain Spondylosis of lumbar region without myelopathy or radiculopathy Hypovitaminosis D Nausea Moderate asthma Fibromyalgia Diabetes mellitus B12 deficiency Surgical History History of right oophorectomy History of tubal ligation Family History Father CVD (cardiovascular disease) Diabetes Mother Diabetes Hypertension CVD (cardiovascular disease) Sister Colon cancer Breast cancer Blind Uterine cancer Family/Other Mental health disorder Social History Housing: Apartment Alcohol intake: never Patient Tobacco Use Status: Never used Tobacco e-Cigarette/Vaping Use: Never Used Second Hand Smoke Exposure: No service: No Current occupational status: unemployed and disabled Cognitive needs: Yes Hearing needs: No Vision needs: Yes Assessment & Plan Assessment & Plan (1) Diabetes mellitus: Code(s): E11.9 - Type 2 diabetes mellitus without complications Category: Medical Qualifiers: Diabetes mellitus type: type 2 Diabetes mellitus intermodal customer service insulin use: without intermediate use Diabetes mellitus complication status: without complication Qualified Code(s): E11.9 - Type 2 diabetes mellitus without complications Plan: current wt: 63 kg ( 01/12 ) est kcal needs as per MSJ: 1300 est protein needs as per 1 g/kg BW: 60 est fluid needs as per 30 ml/kg BW: 1900 Recommended fiber > 12 g /day and gradually increase up to 25-28 g /day or as tolerated Na rec: less than 2300 mg/d unless otherwise specified by MD Nutrition topics discussed : Reviewed (R), Pt verbalized understanding (V) , not applicable (N/A) R, : Healthy Plate Method Concept: R, V, N/A: Carbohydrates: food sources of carbohydrates, relationship of carbohydrates to blood glucose, fatty liver GI health. Recommended total amount of carbohydrates per meals and snack. Differences between simple carbohydrates and complex carbohydrates R, A: Lean protein foods including vegan , vegetarian sources of protein. Benefits of protein (including but not limited to healing, nutritional value , benefits in weight loss, glucose control R, V, N/A: Fats : Source of fats, benefits of fats. Difference between saturated and unsaturated fats. Saturated fats and its contribution to inflammation R, V, N/A: Fiber: food sources and role of fiber in the diet (including but not limited to its role as a prebiotic, benefits in constipation, role in IBS , role in glucose control and cholesterol level) R, V, N/A: Hydration: role of hydration and prevention of dehydration or over hydration. Foods and water content. R, V, N/A: Vitamins and Minerals in foods and supplements R, V, N/A: Interpreting food labels, including serving size, macronutrients, vitamins, minerals, allergens, ingredient list , % daily value Hydrations : Discussed , choosing low sugar beverages, broth, vegetables Patient Instructions: Take all medications as prescribed by the doctor Choose lower sugar beverages (water, diluted juices, ok to choose diet beverages, almond milk to keep hydrated) Include protein foods in the meals and snacks example a yogurt in place of cake as bedtime snack or 1/2 banana and cheese or cup of milk with peanut butter , working on reducing total carb and including protein /heart healthy fats see meal ideas (45 g carb or less and snack 20 g carb or less with lean protein each) Coding Level of Care Code Nutr Indiv Intake (05072) Diagnoses Type 2 diabetes mellitus without complication, without long-term current use of insulin E11.9 Diabetes mellitus type: type 2 Diabetes mellitus intermodal customer service insulin use: without intermediate use Diabetes mellitus complication status: without complication Time Spent (min) 30
[2025-01-02 13:53] VITALS: BMI 28.9
--- OUTSIDE RECORDS SUMMARY | 2025-01-02 18:35 | XMS_ITS | Encounter Summary ---
Author Organization [employer] Address [address] [facility] 7t [place] [address] Care Team Providers Care Ram Car Operator Name Role Phone Paola Montenegro MD Primary Care Provider [phone] Encounter Details Date Type Department Care Team ([facility] st Contact Info) Description 03/21/2022 Abstract [facility] ADULT DENTAL [address] [place], [place] [phone] Frandy Stone DDS [address] [place], [place] [phone] Social History Tobacco Use Types Packs/Day Years [...] on filedocumented in this encounter Care Teams Ram Car Operator Relationship Specialty Start Date End Date Paola Montenegro MD [address] [place], [place] [phone] PCP - General Family Medicine 06/06/15 08/24/23 documented as of this encounter
--- OUTSIDE RECORDS SUMMARY | 2025-01-02 18:35 | XMS_ITS | Encounter Summary ---
Author Organization [employer] Address [address] [facility] 7t [place] [address] Care Team Providers Care Apparel Cutter Name Role Phone Paola Montenegro MD Primary Care Provider [phone] Encounter Details Date Type Department Care Team (Latest Contact Info) Description 07/18/2020 Abstract [facility] CONVERSIONS Dental, Provider, DDS Social History [...] on filedocumented in this encounter Care Teams Apparel Cutter Relationship Specialty Start Date End Date Paola Montenegro MD [address] [place] [id number] PCP - General Family Medicine 06/06/15 08/24/23 documented as of this encounter
--- OUTSIDE RECORDS SUMMARY | 2025-01-02 18:35 | XMS_ITS | Clinical Summary ---
Author Organization [employer] Address [address] [facility] 7t [place] [address] Care Team Providers Care Hydrogen Power Plant Engineer Name Role Phone Unavailable Primary Care Provider [...] patient's age to complete this topic [place] [place] [address]
--- OUTSIDE RECORDS SUMMARY | 2025-01-02 18:35 | XMS_ITS | Encounter Summary ---
Author Organization [employer] Address [address] [facility] 7t [place] [address] Care Team Providers Care Shipping Point Inspector Name Role Phone Paola Montenegro MD Primary Care Provider Encounter Details Date Type Department Care Team (Latest Contact Info) Description 11/21/2021 Abstract [facility] CONVERSIONS Dental, Provider, DDS Social History [...] on filedocumented in this encounter Care Teams Shipping Point Inspector Relationship Specialty Start Date End Date Paola Montenegro MD [address] [place] [id number] PCP - General Family Medicine 06/06/15 08/24/23 documented as of this encounter
--- OUTSIDE RECORDS SUMMARY | 2025-01-02 18:36 | XMS_ITS | Encounter Summary ---
Author Organization [employer] Address [address] [facility] [address] [place] [address] Care Team Providers Care Master Sonar Technician Name Role Phone Paola Montenegro MD Primary Care Provider [phone] Encounter Details Date Type Department Care Team ([facility] st Contact Info) Description 03/12/2022 Abstract [facility] ADULT DENTAL [address] [place] [address] Dental, Provider, DDS Social History Tobacco Use [...] on filedocumented in this encounter Care Teams Master Sonar Technician Relationship Specialty Start Date End Date Paola Montenegro MD [address] [place] [id number] PCP - General Family Medicine 06/06/15 08/24/23 documented as of this encounter
[2025-01-04 09:40] VITALS: BMI 28.8
== END 2025-01-02 14:31 | disposition home or self-care (01) ==
LOC: HO.ENCR 13:24
PROVIDERS: PCP Internal Medicine; Visit Provider Dietitian, Registered
DX: E11.9 Type 2 diabetes mellitus without complications (principal)

== ENCOUNTER 2025-02-06 14:27 | Outpatient (AMB) | payer OTHER, SELFPAY ==
[2025-02-06 15:27] VITALS: BP 116/78; PULSE 108; O2SAT 94; BMI 29.1
--- NOTE | 2025-02-06 15:27 | MHC.PC.OV ---
Vital Signs 02/06/25 15:27 Height 4 ft 10 in Weight 139 lb 4 oz BMI 29.1 BP 116/78 Blood Pressure Location Lt brachial Position Sitting Pulse 108 H Pulse Source Pulse Oximeter Pulse Oximetry (%) 94 Oxygen Delivery Method Room Air Intake Visit Reasons: DM Stereo Operator Required: No Accompanied by: Self / Same As Patient Allergies No Known Allergies (No Known Allergies*) Allergy (Verified 02/06/25 15:54) Medication List - Last Reconciled 02/06/25 by Chani Titus MD acetaminophen 1,000 mg (2 x 500 mg) PO Q8H PRN albuterol sulfate 90 mcg/actuation 2 puffs PO Q4H PRN 90 days albuterol sulfate 90 mcg/actuation (Ventolin HFA) 2 puffs inhalation Q4-6H PRN 30 days alcohol swabs 1 pad topical BID 30 days aspirin 81 mg PO DAILY 90 days blood sugar diagnostic As directed blood sugar diagnostic (OneTouch Ultra Test strips) DIRECTED TO TEST BLOOD SUGAR THREE TIMES DAILY blood sugar diagnostic (FreeStyle Lite Strips) As directed three times a day blood-glucose meter (OneTouch Ultra2 Meter kit) test 3xs per day blood-glucose meter (FreeStyle Lite Meter kit) As directed 3x/day calcium carbonate-vitamin D3 600 mg-10 mcg (400 unit) 1 tab PO DAILY 90 days clotrimazole 1% 1 appl topical BID 4 weeks clotrimazole 2% 1 appful vaginal BEDTIME 3 days cranberry fruit 400 mg PO TID 90 days cyanocobalamin (vitamin B-12) 1,000 mcg PO DAILY 90 days [diabetic shoes with inserts As directed] docusate calcium 240 mg PO DAILY donepezil 10 mg PO BEDTIME dulaglutide (Trulicity) 3 mg (0.5 mL) subcut QWEEK 90 days empagliflozin (Jardiance) 25 mg PO QAM etodolac ER 600 mg PO DAILY 7 days fluticasone propion-salmeterol 113-14 mcg/actuation 1 inh PO BID 30 days hydrocortisone 2.5% 1 appl topical TID PRN 90 days incontinence pad, liner, disp Use 1 pad prn 6 times per day insulin glargine U-300 conc (Toujeo SoloStar U-300 Insulin) 30 units (0.1 mL) subcut BEDTIME 90 days ipratropium bromide 2 sprays intranasal BID 90 days lancets (FreeStyle Lancets) Three times a day latex gloves (Latex Gloves, Medium) As directed lidocaine 5% 1 patch topical DAILY 30 days lisinopril 2.5 mg PO DAILY 90 days metformin 1,000 mg PO BID 90 days methocarbamol 500 mg PO QID 5 days metoclopramide HCl (Reglan) 5 mg PO Q6H miscellaneous medical supply 1 ea miscellaneous .once a day 30 days montelukast 10 mg PO DAILY 90 days nystatin 1 appl topical BID PRN 30 days omega-3 fatty acids-fish oil 340-1,000 mg 1 cap PO DAILY ondansetron 8 mg PO Q8H oxycodone-acetaminophen 5-325 mg (Percocet) 1 tab PO Q8H PRN 7 days pen needle, diabetic subcut daily; psyllium husk (Metamucil) 1 tbsp PO BID 14 days rosuvastatin 40 mg PO DAILY 90 days [shoe inserts As directed] Shower Chair As directed sucralfate (Carafate) 1 g PO BID 30 days terconazole 0.8% 1 appful vaginal BEDTIME 3 days tizanidine 2 mg PO TID PRN 90 days underpads (Bed Underpads) Use 3 to 4 underpads daily prn venlafaxine ER 75 mg PO DAILY 90 days vitamin A 2 caps PO DAILY 90 days vitamin E (dl, acetate) 180 mg PO DAILY 90 days [wipes As directed] Tobacco use date assessed: 12/23/24 Fall risk assessment: No Falls in past year Dental Screening Dental Screen Date: 12/13/24 Did you have a dental visit in the last 12 months?: No Did you have a dental problem in the last 6 months where you did not have access to dental care?: No Was dental information given to patient?: Patient has dentist HPI HPI Comments History of Present Illness Details The patient is a 79-year-old female presenting with management of diabetes, hyperlipidemia, and hypertension, along with addressing constipation and reviewing vaccination status. Diabetes Mellitus has been a long-standing condition managed with Trulicity, Jardiance, and Metformin. The patient's last HbA1c was significantly elevated at 12.8% in November, indicating poor glycemic control. There is a plan to adjust insulin dosage to improve control. Hyperlipidemia is being managed with Rosuvastatin, although recent cholesterol levels were suboptimal. The last lipid panel was conducted in November, and a break in medication adjustment was considered due to the recent test date. Hypertension is controlled with Lisinopril and Metoprolol, with recent blood pressure measurements being satisfactory. Constipation is a recurrent issue, exacerbated by the use of Percocet for pain management. The patient has tried various ncre-tyh-hrhbqzj remedies with limited success, and a prescription for a constipation medication was discussed. Cognitive impairment is being managed with Donepezil, and depression is treated with Venlafaxine. Preventative care includes updating vaccinations, specifically pneumococcal, tetanus, and influenza vaccines. [facility] Medical History Skin lesion Mixed hyperlipidemia Essential hypertension Left knee pain Left hip pain Left foot pain Unsteady gait Low back pain Spondylosis of lumbar region without myelopathy or radiculopathy Hypovitaminosis D Nausea Moderate asthma Fibromyalgia Diabetes mellitus B12 deficiency Surgical History History of right oophorectomy History of tubal ligation Family History Father CVD (cardiovascular disease) Diabetes Mother Diabetes Hypertension CVD (cardiovascular disease) Sister Colon cancer Breast cancer Blind Uterine cancer Family/Other Mental health disorder Social History Housing: Apartment Alcohol intake: never Patient Tobacco Use Status: Never used Tobacco e-Cigarette/Vaping Use: Never Used Second Hand Smoke Exposure: No service: No Current occupational status: unemployed and disabled Cognitive needs: Yes Hearing needs: No Vision needs: Yes Questionnaire Thrive Questionnaire Date Thrive assessed: 12/13/24 I am a: Patient What is your living situation today?: I have a steady place to live Within the past 12 months, did the food you bought not last and you didn't have the money to get more?: Never true Within the past 12 months, did you worry whether your food would run out before you got money to buy more?: Never true Do you have trouble paying for medicines?: No Do you have trouble getting transportation to medical appointments?: No Do you have trouble paying your heating and electricity bill?: No Do you have trouble taking care of your child, family member or friend?: No Do you have trouble with day-to-day activities such as bathing, preparing meals, shopping, managing finances, etc.?: No Are you currently unemployed and looking for a job?: Yes Are you interested in more education?: No Please select the resources that you would like help with: None Currently or been in a relationship where the following occur: No concerns reported THRIVE Score: 0 MARCIAL-7 AMB Questionnaire MARCIAL-7 Date MARCIAL - 7 assessed: 12/13/24 Source: Developed by Drs. Shayne Lennon, Tiff Boudreaux, Amado Andres and colleagues, with an educational blaire from [employer]. Review of Systems Const All systems reviewed & are unremarkable except as noted in HPI and below Card Denies chest pain at rest, Denies chest pain with activity, Denies edema, Denies irregular heart rhythm, Denies claudication, Denies dyspnea, Denies dyspnea on exertion, Denies orthopnea, Denies paroxysmal nocturnal dyspnea and Denies slow heart rate Resp Denies cough, Denies dyspnea and Denies dyspnea on exertion GI Denies abdominal pain, Denies change in bowel habits, Denies excessive flatus, Denies nausea and Denies vomiting Physical exam (Primary Care) Vital Signs: Last Vital Signs Pulse 108 H 02/06/25 15:27 BP 116/78 02/06/25 15:27 Pulse Ox 94 02/06/25 15:27 Oxygen Delivery Method Room Air 02/06/25 15:27 BMI result Body Mass Index 29.1 Tobacco/Smoking Status: Tobacco use Status Tobacco use date assessed 12/23/24 02/06/25 15:29 Patient Tobacco Use Status Never used Tobacco 02/06/25 15:29 e-Cigarette/Vaping Use Never Used 02/06/25 15:29 Thrive Assessment: Date of Thrive Assessment Date Thrive assessed 12/13/24 02/06/25 15:29 Currently or been in a relationship where the following occur: No concerns reported Resp Effort & Inspection: normal respiratory effort Auscultation: clear to auscultation bilaterally Cardio Jugular venous distension: no JVD Rate: regular rate Rhythm: regular rhythm Heart sounds: S1 normal heart sound present and S2 normal heart sound present Extrem General: Yes full ROM Immunizations pneumoc 20-rai conj-dip cr(PF) 0.5 mL IM syringe Performing Provider: Chani Titus MD [facility] [place] [facility] Administered by: ALANNA Delaney on 02/06/25 16:15 Dose Route Admin Location Dispensed Lot Number Expiration Date NDC Cream Maker 0.5 mL IM Right Deltoid 0.5 mL [id number] 01/18/26 [employer] Total Dispensed Waste 0.5 mL 0 % VIS Given Date VIS Provided VIS Publication Date 02/06/25 Single Vaccine 24 Eligibility Eligibility Date Funding Source Not [facility] Eligible 02/06/25 Private Coding Level of Care Code Est Pt Level 4 (94628) Complex EM visit Add On G2211 Diagnoses Type 2 diabetes mellitus without complication, without long-term current use of insulin E11.9 Diabetes mellitus type: type 2 Diabetes mellitus manager intermediate insulin use: without fdc use Diabetes mellitus complication status: without complication Hyperlipidemia LDL goal <70 E78.5 Essential hypertension I10 Alzheimer's dementia G30.9; F02.80 Time Spent (min) 23 Assessment & Plan Assessment & Plan (1) Diabetes mellitus: Code(s): E11.9 - Type 2 diabetes mellitus without complications Category: Medical Qualifiers: Diabetes mellitus type: type 2 Diabetes mellitus fdc insulin use: without manager intermediate use Diabetes mellitus complication status: without complication Qualified Code(s): E11.9 - Type 2 diabetes mellitus without complications (2) Hyperlipidemia LDL goal <70: Code(s): E78.5 - Hyperlipidemia, unspecified Category: Medical (3) Essential hypertension: Code(s): I10 - Essential (primary) hypertension Category: Medical (4) Alzheimer's dementia: Code(s): G30.9 - Alzheimer's disease, unspecified; F02.80 - Dementia in other diseases classified elsewhere, unspecified severity, without behavioral disturbance, psychotic disturbance, mood disturbance, and anxiety Category: Medical Plan Plan 1. Diabetes Mellitus The patient's diabetes management includes Trulicity, Jardiance, and Metformin, with a plan to adjust insulin dosage due to an elevated HbA1c of 12.8% in November. 2. Hyperlipidemia Hyperlipidemia is managed with Rosuvastatin, and recent cholesterol levels were suboptimal, prompting consideration of medication adjustment after the last test in November. 3. Hypertension Hypertension is controlled with Lisinopril and Metoprolol, with satisfactory recent blood pressure measurements. 4. Constipation Constipation, exacerbated by Percocet, is being addressed with a prescription for a constipation medication after limited success with dyfw-ruy-klzqibq remedies. 5. Cognitive Impairment Cognitive impairment is managed with Donepezil. 6. Depression Depression is treated with Venlafaxine. 7. Osteoporosis Osteoporosis management includes calcium with vitamin D supplementation. Orders: Orders AMB Hemoglobin A1c Today Z13.9 - Encounter for screening, unspecified Lipid Panel 4 Months E78.5 - Hyperlipidemia, unspecified Microalbumin, Random (w Creat) 4 Months R80.9 - Proteinuria, unspecified Vitamin D 25-OH Total 4 Months E55.9 - Vitamin D deficiency, unspecified Vitamin B12 and Folate 4 Months E53.8 - Deficiency of other specified B group vitamins Comprehensive [place]. Panel Fast 4 Months E11.9 - Type 2 diabetes mellitus without complications Pneumococcal 20 Immunization Today Z23 - Encounter for immunization Medications: Changed From docusate calcium 240 mg PO DAILY 30 caps 0RF To docusate calcium 240 mg PO DAILY PRN 30 caps 0RF constipation 30 days Refilled insulin glargine U-300 conc (Toujeo SoloStar U-300 Insulin) 30 units (0.1 mL) subcut BEDTIME 9 mL 3RF 90 days E11.9 - Type 2 diabetes mellitus without complications [diabetic shoes with inserts] As directed 1 ea 1RF E11.9 - Type 2 diabetes mellitus without complications
== END 2025-02-06 16:17 | disposition home or self-care (01) ==
LOC: HO.HMCH 14:28
PROVIDERS: PCP Internal Medicine; Visit Provider Internal Medicine
DX: E11.9 Type 2 diabetes mellitus without complications (principal); E78.5 Hyperlipidemia, unspecified; I10 Essential (primary) hypertension; G30.9 Alzheimer's disease, unspecified; F02.80 Dementia in other diseases classified elsewhere, unspecified severity, without behavioral disturbance, psychotic disturbance, mood disturbance, and anxiety; Z23 Encounter for immunization

== ENCOUNTER → 2025-02-06 14:27 | Outpatient (BNVA) | payer OTHER, SELFPAY | PROVIDERS: PCP Internal Medicine; Visit Provider Internal Medicine | DX: E11.9 Type 2 diabetes mellitus without complications (principal); E78.5 Hyperlipidemia, unspecified; I10 Essential (primary) hypertension; K59.00 Constipation, unspecified; G30.9 Alzheimer's disease, unspecified; F02.80 Dementia in other diseases classified elsewhere, unspecified severity, without behavioral disturbance, psychotic disturbance, mood disturbance, and anxiety; F32.A Depression, unspecified; M81.0 Age-related osteoporosis without current pathological fracture; R80.9 Proteinuria, unspecified; E55.9 Vitamin D deficiency, unspecified; E53.8 Deficiency of other specified B group vitamins; Z23 Encounter for immunization | CPT/HCPCS: 90471; 90677; 99212 ==

== ENCOUNTER 2025-02-18 11:33 | Outpatient (AMB) | payer OTHER, SELFPAY ==
--- OUTSIDE RECORDS SUMMARY | 2025-02-18 11:36 | XMS_ITS | Clinical Summary ---
Author Organization [facility] Address [address] [place] [address] Phone Care Team Providers Care Rabbit Dresser Name Role Phone Chani Salguero MD Primary Care Provider [phone] Allergies No known active allergies Medications aspirin [...] patient's age to complete this topic Insurance [facility] ([id number]) [facility] ([id number]) Care Teams Rabbit Dresser Relationship Specialty Start Date End Date Chani Salguero MD [address] [place], [place] PCP - General 04/30/20
--- NOTE | 2025-02-18 12:35 | MHC.OFFWIV ---
Intake Vital Signs 02/18/25 12:36 Height 4 ft 10 in Weight 136 lb BMI 28.4 BP 90/60 Blood Pressure Location Lt brachial Position Sitting Respiration 16 Pulse 103 H Pulse Source Pulse Oximeter Temp 98.0 F Temp Source Oral Pulse Oximetry (%) 94 Oxygen Delivery Method Room Air Intake Visit Reasons: EP Nausea, body pain Intake Note: Pt is here today c/o nausea, bodyaches and h/a x2days and fatigue and no appetite Patient Tobacco Use Status: Never used Tobacco Allergies No Known Allergies (No Known Allergies*) Allergy (Verified 02/18/25 12:36) HPI EP Nausea, body pain HPI Details Patient is a 79-year-old female diabetic, who comes in with her daughter, they are both [place]isian-speaking mostly, and patient complains of having body aches all over, nausea, decreased appetite, generalized lower abdominal tenderness, fatigue, and dizziness for the last 2 days. No specific inciting event, and no reported sick contacts. No fever or chills, dysuria, congestion, rhinitis, chest pain, shortness of breath, syncope, palpitations, headache, weakness, or other significant associated symptoms reported. [facility] Medical History Skin lesion Mixed hyperlipidemia Essential hypertension Left knee pain Left hip pain Left foot pain Unsteady gait Low back pain Spondylosis of lumbar region without myelopathy or radiculopathy Hypovitaminosis D Nausea Moderate asthma Fibromyalgia Diabetes mellitus B12 deficiency Surgical History History of right oophorectomy History of tubal ligation Family History Father CVD (cardiovascular disease) Diabetes Mother Diabetes Hypertension CVD (cardiovascular disease) Sister Colon cancer Breast cancer Blind Uterine cancer Family/Other Mental health disorder Social History Housing: Apartment Alcohol intake: never Patient Tobacco Use Status: Never used Tobacco e-Cigarette/Vaping Use: Never Used Second Hand Smoke Exposure: No service: No Current occupational status: unemployed and disabled Cognitive needs: Yes Hearing needs: No Vision needs: Yes Review of Systems Const All systems reviewed & are unremarkable except as noted in HPI and below Physical Exam Vital Signs: Last Vital Signs Temp 98.0 F 02/18/25 12:36 Pulse 103 H 02/18/25 12:36 Resp 16 02/18/25 12:36 BP 90/60 02/18/25 12:36 Pulse Ox 94 02/18/25 12:36 Oxygen Delivery Method Room Air 02/18/25 12:36 BMI result Body Mass Index 28.4 Const General: cooperative, healthy appearing, comfortable, no acute distress, alert, awake, Physically active, tired appearing and well groomed; No acute distress, anxious, diaphoretic, ill appearing, intoxicated appearing or poor hygiene Nutritional Appearance: average body habitus Orientation/consciousness: patient oriented x3 Limitations: no limitations Eyes General: appearance normal, both eyes and all related structures Neck Neck: Yes normal visual inspection, Yes no lymphadenopathy, Yes trachea midline, Yes supple and No anterior neck swelling Chest Chest palpation & inspection: normal palpation of entire chest wall Resp Effort & Inspection: normal respiratory effort, able to speak in complete sentences, no audible wheezes, no cough, no grunting, not labored, no nasal flaring, no retractions and symmetric chest movement Auscultation: clear to auscultation bilaterally, no crackles, no rales, no rhonchi, no wheezes, lung sounds not diminished and No rub present Cardio Palpation: normal PMI Rate: regular rate Rhythm: regular rhythm Heart sounds: S1 normal heart sound present and S2 normal heart sound present GI Inspection: Yes normal to inspection, No Abdominal wall edema, No Abdominal panniculus present and No obesity Palpation (GI): Soft to palpation, not firm, Tenderness to palpation present (GI) in the LLQ and in the RLQ, no hernias and no masses General: Yes no CVA tenderness Back/Spine/Pelvis Back: no CVA tenderness Skin Other: Good color, warm and dry Neuro General: patient oriented x3 Psych Appearance: grossly normal Mental Status: mental status grossly normal Speech and movement: Normal speech and movement present Affect: normal affect Attitude: cooperative Thought process: Normal thought process present Insight: Good insight present (Psych) Judgement: Good judgement present (Psych) Results AMB Urinalysis, Automated UA Leukoctes 0 Timo/uL Last Edit by Aundrea Lomeli CMA on 02/18/25 13:12 UA Nitrite Negative Last Edit by Aundrea Lomeli CMA on 02/18/25 13:12 UA Urobilinogen 0.2 mg/dL Last Edit by Aundrea Lomeli CMA on 02/18/25 13:12 UA Protein 0 mg/dL Last Edit by Aundrea Lomeli CMA on 02/18/25 13:12 UA pH 6.0 Last Edit by Aundrea Lomeli, LEANN on 02/18/25 13:12 UA Blood 0 Lui/uL Last Edit by Aundrea Lomeli, LEANN on 02/18/25 13:12 UA Specific [place] 1.010 Last Edit by Aundrea Lomeli, LEANN on 02/18/25 13:12 UA Ketone Positive Last Edit by Aundrea Lomeli CMA on 02/18/25 13:12 UA Bilirubin 0 mg/dL Last Edit by Aundrea Lomeli, LEANN on 02/18/25 13:12 UA Glucose 1000 mg/dL Last Edit by Aundrea Lomeli CMA on 02/18/25 13:12 Results Reviewed Results Reviewed: No nitrites, heme or leuks consistent with UTI. Assessment & Plan Assessment & Plan (1) Dehydration symptoms: Code(s): R63.8 - Other symptoms and signs concerning food and fluid intake Plan: Patient is a 79-year-old female diabetic, who comes in with her daughter, they are both Tunisian-speaking mostly, and patient complains of having body aches all over, nausea, decreased appetite, generalized lower abdominal tenderness, fatigue, and dizziness for the last 2 days. She presents tired appearing, with complaints consistent with dehydration and she is hypotensive as well as slightly tachycardic while seated. Her urine was not remarkable for urinary tract infection. Due to history as well as concerning symptoms that do not show an obvious source of etiology, I advised that she go to the emergency department for further evaluation and treatment. She was amenable to this, as she does think she would benefit from IV fluids, as well as her daughter. They are to be transported to [facility] by ambulance per patient's request with expect called in. Orders: Orders AMB Urinalysis Automated Today Z13.9 - Encounter for screening, unspecified Coding Level of Care Code Est Pt Level 4 (17183) Diagnoses Dehydration symptoms R63.8
[2025-02-18 12:36] VITALS: BP 90/60; PULSE 103; RESP 16; TEMP 36.7; O2SAT 94; BMI 28.4
== END 2025-02-18 13:32 | disposition home or self-care (01) ==
PROVIDERS: PCP Internal Medicine; Visit Provider Physician Assistant Medical
DX: Z13.9 Encounter for screening, unspecified (principal); R63.8 Other symptoms and signs concerning food and fluid intake

== ENCOUNTER → 2025-02-18 11:33 | Outpatient (BNVA) | payer OTHER, SELFPAY | PROVIDERS: PCP Internal Medicine; Visit Provider Physician Assistant Medical | DX: E11.9 Type 2 diabetes mellitus without complications (principal); R10.30 Lower abdominal pain, unspecified; R53.83 Other fatigue; R42 Dizziness and giddiness; R63.8 Other symptoms and signs concerning food and fluid intake | CPT/HCPCS: 81003; 99212 ==

== ENCOUNTER 2025-02-20 14:02 | Outpatient (AMB) | payer OTHER, SELFPAY ==
--- NOTE | 2025-02-20 14:08 | A.OFFPC_ITS ---
Vital Signs 02/20/25 14:10 Height 4 ft 10 in Weight 135 lb 6 oz BMI 28.3 BP 110/60 Blood Pressure Location Lt brachial Position Sitting Respiration 18 Pulse 115 H Pulse Source Pulse Oximeter Temp 97.1 F Temp Source Temporal Artery Scan Pulse Oximetry (%) 96 Oxygen Delivery Method Room Air Intake Visit Reasons: stomach pain, body pain, nauseas Wholesale And Retail Merchant Required: No Accompanied by: Self / Same As Patient Allergies No Known Allergies (No Known Allergies*) Allergy (Verified 02/20/25 14:12) Medication List - Last Reconciled 02/20/25 by Cookie Baires MD acetaminophen 1,000 mg (2 x 500 mg) PO Q8H PRN albuterol sulfate 90 mcg/actuation 2 puffs PO Q4H PRN 90 days albuterol sulfate 90 mcg/actuation (Ventolin HFA) 2 puffs inhalation Q4-6H PRN 30 days alcohol swabs 1 pad topical BID 30 days aspirin 81 mg PO DAILY 90 days blood sugar diagnostic As directed blood sugar diagnostic (OneTouch Ultra Test strips) DIRECTED TO TEST BLOOD SUGAR THREE TIMES DAILY blood sugar diagnostic (FreeStyle Lite Strips) As directed three times a day blood-glucose meter (OneTouch Ultra2 Meter kit) test 3xs per day blood-glucose meter (FreeStyle Lite Meter kit) As directed 3x/day calcium carbonate-vitamin D3 600 mg-10 mcg (400 unit) 1 tab PO DAILY 90 days clotrimazole 1% 1 appl topical BID 4 weeks clotrimazole 2% 1 appful vaginal BEDTIME 3 days cranberry fruit 400 mg PO TID 90 days cyanocobalamin (vitamin B-12) 1,000 mcg PO DAILY 90 days [diabetic shoes with inserts As directed] docusate calcium 240 mg PO DAILY PRN 30 days donepezil 10 mg PO BEDTIME dulaglutide (Trulicity) 3 mg (0.5 mL) subcut QWEEK 90 days empagliflozin (Jardiance) 25 mg PO QAM etodolac ER 600 mg PO DAILY 7 days fluticasone propion-salmeterol 113-14 mcg/actuation 1 inh PO BID 30 days hydrocortisone 2.5% 1 appl topical TID PRN 90 days incontinence pad, liner, disp Use 1 pad prn 6 times per day insulin glargine U-300 conc (Toujeo SoloStar U-300 Insulin) 30 units (0.1 mL) subcut BEDTIME 90 days ipratropium bromide 2 sprays intranasal BID 90 days lancets (FreeStyle Lancets) Three times a day latex gloves (Latex Gloves, Medium) As directed lidocaine 5% 1 patch topical DAILY 30 days lisinopril 2.5 mg PO DAILY 90 days metformin 1,000 mg PO BID 90 days methocarbamol 500 mg PO QID 5 days metoclopramide HCl (Reglan) 5 mg PO Q6H miscellaneous medical supply 1 ea miscellaneous .once a day 30 days montelukast 10 mg PO DAILY 90 days nystatin 1 appl topical BID PRN 30 days omega-3 fatty acids-fish oil 340-1,000 mg 1 cap PO DAILY ondansetron 8 mg PO Q8H oxycodone-acetaminophen 5-325 mg (Percocet) 1 tab PO Q8H PRN 7 days pen needle, diabetic subcut daily; psyllium husk (Metamucil) 1 tbsp PO BID 14 days rosuvastatin 40 mg PO DAILY 90 days [shoe inserts As directed] Shower Chair As directed sucralfate (Carafate) 1 g PO BID 30 days terconazole 0.8% 1 appful vaginal BEDTIME 3 days tizanidine 2 mg PO TID PRN 90 days underpads (Bed Underpads) Use 3 to 4 underpads daily prn venlafaxine ER 75 mg PO DAILY 90 days vitamin A 2 caps PO DAILY 90 days vitamin E (dl, acetate) 180 mg PO DAILY 90 days [wipes As directed] Tobacco use date assessed: 02/20/25 Fall risk assessment: No Falls in past year Last assessed Fall Risk: 02/20/25 Dental Screening Dental Screen Date: 02/20/25 Did you have a dental visit in the last 12 months?: No Did you have a dental problem in the last 6 months where you did not have access to dental care?: No Was dental information given to patient?: No HPI HPI Comments History of Present Illness Details The patient is a 79-year-old female presenting with headaches, stomach aches, generalized body aches, and nausea. The symptoms reportedly began three weeks ago, improved temporarily, but then recurred and worsened over the past three to four days. The patient was seen at the [facility] Emergency Department on February 18 for similar symptoms, including decreased oral intake, where her lab results were normal. A prior abdominal CT scan in November was normal, showing only diverticulosis without evidence of diverticulitis. Her primary symptoms include persistent nausea, which has led to decreased food intake, as she is unable to eat three meals a day. She has been taking ondansetron for nausea without relief. She has a history of acid reflux, which has become more frequent recently. She denies diarrhea but reports chronic constipation, requiring medication to soften her stools. There is no blood in her stool. Her current medications include Tylenol, albuterol, aspirin, calcium, clotrimazole topical cream, cranberry, vitamin B12, docusate (Dulcolax), donepezil, dulaglutide (Trulicity), Jardiance, fluticasone propionate (Flonase), insulin glargine 30 units, ipratropium nasal spray, lisinopril, metformin, methocarbamol, montelukast, nystatin powder, ondansetron, oxycodone- acetaminophen (Percocet), rosuvastatin, sucralfate (Carafate), tizanidine, and venlafaxine. She denies taking metoclopramide (Reglan). [facility] Medical History Skin lesion Mixed hyperlipidemia Essential hypertension Left knee pain Left hip pain Left foot pain Unsteady gait Low back pain Spondylosis of lumbar region without myelopathy or radiculopathy Hypovitaminosis D Nausea Moderate asthma Fibromyalgia Diabetes mellitus B12 deficiency Surgical History History of right oophorectomy History of tubal ligation Family History Father CVD (cardiovascular disease) Diabetes Mother Diabetes Hypertension CVD (cardiovascular disease) Sister Colon cancer Breast cancer Blind Uterine cancer Family/Other Mental health disorder Social History Housing: Apartment Alcohol intake: never Patient Tobacco Use Status: Never used Tobacco e-Cigarette/Vaping Use: Never Used Second Hand Smoke Exposure: No service: No Current occupational status: unemployed and disabled Cognitive needs: Yes Hearing needs: No Vision needs: Yes Questionnaire Thrive Questionnaire Date Thrive assessed: 12/13/24 I am a: Patient What is your living situation today?: I have a steady place to live Within the past 12 months, did the food you bought not last and you didn't have the money to get more?: Never true Within the past 12 months, did you worry whether your food would run out before you got money to buy more?: Never true Do you have trouble paying for medicines?: No Do you have trouble getting transportation to medical appointments?: No Do you have trouble paying your heating and electricity bill?: No Do you have trouble taking care of your child, family member or friend?: No Do you have trouble with day-to-day activities such as bathing, preparing meals, shopping, managing finances, etc.?: No Are you currently unemployed and looking for a job?: Yes Are you interested in more education?: No Please select the resources that you would like help with: None Currently or been in a relationship where the following occur: No concerns reported THRIVE Score: 0 MARCIAL-7 AMB Questionnaire MARCIAL-7 Date MARCIAL - 7 assessed: 12/13/24 Source: Developed by Drs. Shayne Lennon, Tiff Boudreaux, Amado Andres and colleagues, with an educational blaire from [employer]. Physical exam (Primary Care) Vital Signs: Last Vital Signs Temp 97.1 F 02/20/25 14:10 Pulse 115 H 02/20/25 14:10 Resp 18 02/20/25 14:10 BP 110/60 02/20/25 14:10 Pulse Ox 96 02/20/25 14:10 Oxygen Delivery Method Room Air 02/20/25 14:10 BMI result Body Mass Index 28.3 Tobacco/Smoking Status: Tobacco use Status Tobacco use date assessed 02/20/25 02/20/25 14:21 Patient Tobacco Use Status Never used Tobacco 02/20/25 14:10 e-Cigarette/Vaping Use Never Used 02/20/25 14:10 Thrive Assessment: Date of Thrive Assessment Date Thrive assessed 12/13/24 02/20/25 14:10 Currently or been in a relationship where the following occur: No concerns reported Coding Level of Care Code Est Pt Level 3 (70296) Diagnoses Chronic GERD K21.9 Type 2 diabetes mellitus without complication, without long-term current use of insulin E11.9 Diabetes mellitus type: type 2 Diabetes mellitus cloth mender insulin use: without jail use Diabetes mellitus complication status: without complication Time Spent (min) 20 Assessment & Plan Assessment & Plan (1) Chronic GERD: Code(s): K21.9 - Gastro-esophageal reflux disease without esophagitis Category: Medical Plan: - The patient's symptoms are thought to be primarily due to acid reflux. - A new medication for acid reflux will be prescribed. Omeprazole 40 mg Daily. - The patient was counseled on dietary modifications, including avoiding spicy foods, sugars, and cheese to help manage symptoms. - Follow-up is scheduled in one month to assess for improvement. - If there is no improvement, a referral to a chief legal officer will be considered. (2) Diabetes mellitus: Code(s): E11.9 - Type 2 diabetes mellitus without complications Category: Medical Qualifiers: Diabetes mellitus type: type 2 Diabetes mellitus cloth mender insulin use: without cloth mender use Diabetes mellitus complication status: without complication Qualified Code(s): E11.9 - Type 2 diabetes mellitus without complications Plan: - The patient's diet is suspected to be not well-controlled, given she takes multiple medications for her blood sugar. - Counseled on the importance of reducing sugar in her diet, including avoiding artificial sugars like high fructose corn syrup. Plan I explained to the patient that her symptoms of nausea and stomach pain are most likely due to acid reflux. We discussed starting Omeprazole for this, as the ondansetron she has been taking is not providing relief. I counseled her extensively on diet, explaining that avoiding spicy foods, sugars, and cheese can help with acid reflux symptoms and also her diabetes. I emphasized that dietary changes are crucial, as medication alone may not resolve the issue if she continues to consume trigger foods. We will follow up in one month, and if her symptoms do not improve, I will refer her to a GI specialist for further evaluation. Medications: New omeprazole 40 mg PO DAILY 30 caps 3RF
[2025-02-20 14:10] VITALS: BP 110/60; PULSE 115; RESP 18; TEMP 36.2; O2SAT 96; BMI 28.3
== END 2025-02-20 15:04 | disposition home or self-care (01) ==
LOC: HO.HMCH 14:02
PROVIDERS: PCP Internal Medicine; Visit Provider Internal Medicine
DX: K21.9 Gastro-esophageal reflux disease without esophagitis (principal); E11.9 Type 2 diabetes mellitus without complications

== ENCOUNTER → 2025-02-20 14:02 | Outpatient (BNVA) | payer OTHER, SELFPAY | PROVIDERS: PCP Internal Medicine; Visit Provider Internal Medicine | DX: E11.9 Type 2 diabetes mellitus without complications (principal); K21.9 Gastro-esophageal reflux disease without esophagitis; R11.0 Nausea; R51.9 Headache, unspecified; R10.9 Unspecified abdominal pain; Z79.899 Other long term (current) drug therapy | CPT/HCPCS: 99212 ==

== ENCOUNTER 2025-02-22 11:19 | Outpatient (REF) | payer OTHER, SELFPAY ==
--- OUTSIDE RECORDS SUMMARY | 2025-02-19 06:11 | XMS_ITS | Continuity of Care Document ---
Demographics Address [address] [facility] [address] [address] [place] Preferred Language Russian; Castilian Marital Status Congregation Affiliation Quaker Race White Ethnic Group or Author Organization [facility] ter Address [address] [place] [address]- Care Team Providers Care [employer] Specialist Name Role Phone Steffen Titus MD, Chani Alvarez Primary Care Physician [phone] [id number] Date(s): 02/18/25 - 02/19/25 [facility] [address] [place] [id number]- Discharge Disposition: A-D/C Walkout Attending Physician: Not on Staff, Attending MD Admitting Physician: Not on Staff, Admitting MD Referring Physician: Not on Staff, Referring MD Encounter Type: Disch ES Allergies, Adverse Reactions, Alerts No Known Allergies Medications acetaminophen-oxyCODONE 325 mg-5 mg oral tablet Refills 0, Tot. Refills 0, Maintenance, 10/29/18 1:12:41 PM EDT, Partial fill upon patient request Start Date: 10/29/18 Status: Ordered Medication Dispense Status: Completed Total Allowed Fills: 1 Fills Dispensed: 0 acyclovir 400 mg oral tablet 1 tablet = 400 mg, By Mouth, 2 times a day, 0 Refills, Maintenance, 06/30/14 1:05:38 PM EDT Start Date: 06/30/14 Status: Ordered Medication Dispense Status: Completed Total Allowed Fills: 1 Fills Dispensed: 0 Advair 500 mcg-50 mcg Inhaler Inhalation, 2 times a day, 0 Refills, Maintenance, 07/08/13 10:33:42 AM EDT Start Date: 07/08/13 Status: Ordered Medication Dispense Status: Completed Total Allowed Fills: 1 Fills Dispensed: 0 Aspirin 81, Daily, 0 Refills, Maintenance, 07/08/13 10:34:50 AM EDT Start Date: 07/08/13 Status: Ordered Medication Dispense Status: Completed Total Allowed Fills: 1 Fills Dispensed: 0 atorvastatin 80 mg oral tablet TK 1 T PO QD Start Date: 10/29/18 Status: Ordered Medication Dispense Status: Completed Total Allowed Fills: 1 Fills Dispensed: 0 buspirone 15 mg oral tablet 1 tablet, By Mouth, 3 times a day, # 270 tablet, 0 Refills, Maintenance, 12/23/13 10:19:33 AM EDT, Tablet Start Date: 12/23/13 Status: Ordered Medication Dispense Status: Completed Quantity: 270.0 Unit: tablet Total Allowed Fills: 1 Fills Dispensed: 0 Calcium 600 +D oral tablet 1 tablet, By Mouth, 3 times a day, 0 Refills, Maintenance, 07/08/13 10:35:54 AM EDT Start Date: 07/08/13 Status: Ordered Medication Dispense Status: Completed Total Allowed Fills: 1 Fills Dispensed: 0 Cranberry oral tablet 0 Refills, Maintenance, 07/08/13 10:36:54 AM EDT Start Date: 07/08/13 Status: Ordered Medication Dispense Status: Completed Total Allowed Fills: 1 Fills Dispensed: 0 Estrace Vaginal Cream 0.1 mg/g See Instructions, 1 gram Vaginally at bedtime twice per week, # 42 Gm, 4 Refills, Maintenance, 06/21/20 11:56:00 AM EST, [facility] #[id number], Partial fill upon patient request if the prescription is for a schedule II opioid drug., 146.5, cm, 06/21/20 11:46:00 EST, Height, 67, kg, 05/31/20 16:1 7:00 EST, Dry Weight Start Date: 06/21/20 Status: Ordered Medication Dispense Status: Completed Quantity: 42.0 Unit: g Total Allowed Fills: 5 Fills Dispensed: 0 Fish Oil 1000 mg oral capsule 0 Refills, Maintenance, 10/29/18 1:00:58 PM EDT Start Date: 10/29/18 Status: Ordered Medication Dispense Status: Completed Total Allowed Fills: 1 Fills Dispensed: 0 folic acid 1 mg oral tablet 1 tablet = 1 mg, By Mouth, Daily, 0 Refills, Maintenance, 07/08/13 10:34:26 AM EDT Start Date: 07/08/13 Status: Ordered Medication Dispense Status: Completed Total Allowed Fills: 1 Fills Dispensed: 0 Jardiance 25 mg oral tablet 0 Refills, Maintenance, 10/29/18 1:02:05 PM EDT Start Date: 10/29/18 Status: Ordered Medication Dispense Status: Completed Total Allowed Fills: 1 Fills Dispensed: 0 lisinopril 2.5 mg oral tablet 2.5 mg, 1, tablet, By Mouth, Daily, # 30 tablet, Refills 11, Tot. Refills 11, Maintenance, 09/10/16 12:20:42 PM EDT, Route to Pharmacy Electronically, [facility] [id number] Start Date: 09/10/16 Stop Date: 09/05/17 Status: Ordered Medication Dispense Status: Completed Quantity: 30.0 Unit: tablet Total Allowed Fills: 12 Fills Dispensed: 0 Lodine XL 600 mg oral tablet, extended release See Instructions, 1 tablet By Mouth 2 times a day, as written by another provider, 0 Refills Start Date: 07/17/05 Status: Ordered Medication Dispense Status: Completed Total Allowed Fills: 1 Fills Dispensed: 0 loratadine 10 mg oral capsule 1 capsule, By Mouth, Daily, # 10 capsule, 0 Refills, Maintenance, 12/23/13 10:20:54 AM EDT, Capsule Start Date: 12/23/13 Status: Ordered Medication Dispense Status: Completed Quantity: 10.0 Unit: capsule Total Allowed Fills: 1 Fills Dispensed: 0 metFORMIN 1000 mg oral tablet 1 tablet = 1,000 mg, By Mouth, 2 times a day, 0 Refills, Maintenance, 11/24/16 1:21:30 PM EDT Start Date: 11/24/16 Status: Ordered Medication Dispense Status: Completed Total Allowed Fills: 1 Fills Dispensed: 0 Metoprolol Succinate ER 25 mg oral tablet, extended release 1 tablet = 25 mg, By Mouth, Daily, # 30 tablet, 2 Refills, Maintenance, 01/23/17 3:19:44 PM EDT, ER Tablet, [facility] [id number] Start Date: 01/23/17 Stop Date: 04/23/17 Status: Ordered Medication Dispense Status: Completed Quantity: 30.0 Unit: tablet Total Allowed Fills: 3 Fills Dispensed: 0 montelukast 10 mg oral tablet 1 tablet = 10 mg, By Mouth, Daily before dinner, 0 Refills, Maintenance, 07/08/13 10:33:56 AM EDT Start Date: 07/08/13 Status: Ordered Medication Dispense Status: Completed Total Allowed Fills: 1 Fills Dispensed: 0 Myrbetriq 25 mg oral tablet, extended release 1 tablet, By Mouth, Daily, # 90 tablet, 0 Refills, [facility] #[id number], 146.5, cm, 06/21/2110:46:00 EST, Height, 67, kg, 05/31/20 16:17:00 EST, Dry Weight Start Date: 07/08/21 Status: Ordered Medication Dispense Status: Completed Quantity: 90.0 Unit: tablet Total Allowed Fills: 1 Fills Dispensed: 0 Nasonex 50 mcg/inh nasal spray 2 sprays, Nares, Both, Daily, PRN for allergy symptoms, # 17 Gm, 0 Refills, Maintenance, 12/23/13 10:20:05 AM EDT, [facility] Start Date: 12/23/13 Status: Ordered Medication Dispense Status: Completed Quantity: 17.0 Unit: g Total Allowed Fills: 1 Fills Dispensed: 0 Prilosec OTC 20 mg oral enteric coated tablet 1 tablet = 20 mg, By Mouth, 2 times a day, # 28 tablet, 0 Refills, 01/08/09 12:36:14 PM EDT Start Date: 01/08/09 Stop Date: 01/22/09 Status: Ordered Medication Dispense Status: Completed Quantity: 28.0 Unit: tablet Total Allowed Fills: 1 Fills Dispensed: 0 ProAir HFA 90 mcg/inh inhalation aerosol with adapter 2 puffs, Inhalation, 4 times a day, 0 Refills, Maintenance, 07/08/13 10:36:30 AM EDT Start Date: 07/08/13 Status: Ordered Medication Dispense Status: Completed Total Allowed Fills: 1 Fills Dispensed: 0 Topamax 50 mg oral tablet 1 tablet, By Mouth, 2 times a day, # 180 tablet, 0 Refills, Maintenance, 12/23/13 10:20:21 AM EDT, Tablet Start Date: 12/23/13 Status: Ordered Medication Dispense Status: Completed Quantity: 180.0 Unit: tablet Total Allowed Fills: 1 Fills Dispensed: 0 Toubertao SoloStar 300 units/mL subcutaneous solution INJECT 15 UNITS SQ QAM Start Date: 10/29/18 Status: Ordered Medication Dispense Status: Completed Total Allowed Fills: 1 Fills Dispensed: 0 trazodone 150 mg oral tablet See Instructions, 1 tablet By Mouth 2 times a day, as written by another presciber, 0 Refills Start Date: 07/17/05 Status: Ordered Medication Dispense Status: Completed Total Allowed Fills: 1 Fills Dispensed: 0 vitamin A 25380 u oral capsule Refills 0, Maintenance, 10/29/18 1:01:18 PM EDT Start Date: 10/29/18 Status: Ordered Medication Dispense Status: Completed Total Allowed Fills: 1 Fills Dispensed: 0 Vitamin B-12 1000 mcg oral tablet Refills 0, Maintenance, 10/29/18 1:01:08 PM EDT Start Date: 10/29/18 Status: Ordered Medication Dispense Status: Completed Total Allowed Fills: 1 Fills Dispensed: 0 Vitamin D3 5000 intl units oral tablet 1 tablet, By Mouth, Daily, # 100 tablet, 0 Refills, Maintenance, 12/23/13 10:19:46 AM EDT, Tablet Start Date: 12/23/13 Status: Ordered Medication Dispense Status: Completed Quantity: 100.0 Unit: tablet Total Allowed Fills: 1 Fills Dispensed: 0 vitamin E with mixed tocopherols 400 iu oral capsule 0 Refills, Maintenance, 10/29/18 1:01:13 PM EDT Start Date: 10/29/18 Status: Ordered Medication Dispense Status: Completed Total Allowed Fills: 1 Fills Dispensed: 0 Zofran 4 mg oral tablet 1 tablet = 4 mg, By Mouth, Every 8 hours, PRN Nausea & Vomiting, # 10 tablet, 0 Refills, Maintenance, 05/25/18 9:17:17 PM EST, Tablet Start Date: 05/25/18 Status: Ordered Medication Dispense Status: Completed Quantity: 10.0 Unit: tablet Total Allowed Fills: 1 Fills Dispensed: 0 Zovirax 5% Topical Topically, 0 Refills, Maintenance, 12/23/13 10:21:12 AM EDT Start Date: 12/23/13 Status: Ordered Medication Dispense Status: Completed Total Allowed Fills: 1 Fills Dispensed: 0 Mental Status Mental Status Assessment Assessment Assessment Component Result Effecti ve Date [place] coma score total 15 02/18/25 Body weight 63.3 02/18/25 Problem List Condition Confirmation Course Effective Dates Status H ealth Status Informant Diabetes Confirmed Active Hyperlipidemia Confirmed Active Hypertension Confirmed Active 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 Obese class I Confirmed Active Vital Signs Most recent to oldest [Reference Range]: 1 2 Weight 63.3 kg (02/18/25 2:18 PM) 63.3 kg (02/18/25 2:11 PM) Oxygen Saturation [94-100 %] 93 % *L* (02/19/25 12:03 AM) 95 % (02/18/25 2:11 PM) Pulse Rate [55-90 bpm] 109 bpm *H* (02/19/25 12:03 AM) 101 bpm *H* (02/18/25 2:11 PM) Blood Pressure [90-138/55-84 mm Hg] 122/ 61mm Hg (02/19/25 12:03 AM) 122/67mm Hg (02/18/25 2:11 PM) Respiratory Rate [16-30 br/min] 18 br/mi n (02/19/25 12:03 AM) 17 br/min (02/18/25 2:11 PM) Temperature [96.8-100.4 DegF] 98.1 DegF (02/19/25 12:03 AM) 98.3 DegF (02/18/25 2:11 PM) Mode of Delivery (Oxygen) Room air (02/19/25 12:03 AM) room air (02/18/25 2:11 PM) Blood pressure sites Arm, right (02/19/25 12:03 AM) Arm, left (02/18/25 2:11 PM) Temperature Route Oral (02/19/25 12:03 AM) Oral (02/18/25 2:11 PM) Weight Obtained Via Patient/family state d (02/18/25 2:11 PM) Social History Social History Type Response Sexual Sexually involved in last 6 months: No. Smoking Status Never smoker; Tobacc o user in household: No entered on: 12/23/13 Sex Sex Representation Female (finding) Status Not EKG study * Event Display: EKG Authored Date: [id number] Patient Care team information Care Team Personnel Name: Chani Salguero MD Position: Reference Physician Member Role: PCP [address]: [address] [place] [address] [address] [place] [address]- Telecom: Care Team Related Persons Name: BENITA AMBRIZ Name: DEIDRA ANTHONY Name: RUBENS GARCIA Insurance Providers Guarantor name: [employer] Plan Information #: 1 Payer: [facility] [employer] Payer Identifier: NA Member Number: [id number] Group Number: [id number] Subscriber Identifier: [id number] Relationship to Subscriber: self Coverage Type: Medicare Managed Care (Includes Medicare Advantage Plans) Coverage Verification Date: NA Telecom: NA Address: NA
--- NOTE | ~2025-02-22 | US_ITS ---
CLINICAL HISTORY: N28.1 - Cyst of kidney, acquired US of kidneys Comparison: None provided Findings: Right kidney is normal in size, echogenicity and morphology, 9.9 cm in length. 2 mm calculus in the midpole, simple cyst 1.2 cm in the midpole. No hydronephrosis. Left kidney is normal in size, echogenicity and morphology, 9.1 cm in length. No calculus or hydronephrosis. Simple cysts noted, the dominant cyst is 4.4 cm in the upper pole. Limited color Doppler demonstrates unremarkable bilateral blood flow. Impression: 1. Nonobstructing right nephrolithiasis. 2. Bilateral renal benign cysts. This document has been electronically signed by: Sharonda Greene MD on 02/22/2025 14:51:06
--- OUTSIDE RECORDS SUMMARY | 2025-02-22 13:49 | XMS_ITS | Clinical Summary ---
Author Organization [facility] Address [address] [facility] [address] [place] [address] Phone Care Team Providers Care Technical Assoc Name Role Phone Chani Salguero MD Primary Care Provider [phone] Allergies No known active allergies Medications aspirin [...] patient's age to complete this topic Insurance [facility] ([id number]) [facility] ([id number]) Care Teams Technical Assoc Relationship Specialty Start Date End Date Chani Salguero MD [address] [place], [place] PCP - General 04/30/20
== END 2025-02-22 11:20 | disposition home or self-care (01) ==
LOC: HO.US 11:19
PROVIDERS: PCP Internal Medicine; Visit Provider Internal Medicine
DX: N28.1 Cyst of kidney, acquired (principal)
CPT/HCPCS: 76775

== ENCOUNTER → 2025-02-22 11:21 | Outpatient (BNV) | payer OTHER, SELFPAY | PROVIDERS: PCP Internal Medicine; Visit Provider Radiology Diagnostic Radiology | DX: N28.1 Cyst of kidney, acquired (principal); N20.0 Calculus of kidney | CPT/HCPCS: 76775 ==

== ENCOUNTER 2025-02-23 13:05 | Outpatient (AMB) | payer OTHER, SELFPAY ==
--- NOTE | 2025-02-23 13:08 | A.OFFVIS_ITS ---
VS Expanded 02/23/25 13:12 Height 4 ft 10 in Weight 137 lb 9.095 oz BMI 28.7 Intake Visit Reasons: t2dm Allergies No Known Allergies (No Known Allergies*) Allergy (Verified 02/20/25 14:12) Nutrition Presentation Details: Pt presents for MNT f/u for T2DM Pt has alzheimers dementia Pt presents with daughter during this appointment Patient did not bring blood glucose record to this appointment Daughter reports patient enjoys soups. Today will review on ways to reduce amount of starches in the meals Daughter reports that the patient refuses to eat lower carbohydrate foods and enjoys a lot of the starchy foods and starchy vegetables [facility] Medical History Skin lesion Mixed hyperlipidemia Essential hypertension Left knee pain Left hip pain Left foot pain Unsteady gait Low back pain Spondylosis of lumbar region without myelopathy or radiculopathy Hypovitaminosis D Nausea Moderate asthma Fibromyalgia Diabetes mellitus B12 deficiency Surgical History History of right oophorectomy History of tubal ligation Family History Father CVD (cardiovascular disease) Diabetes Mother Diabetes Hypertension CVD (cardiovascular disease) Sister Colon cancer Breast cancer Blind Uterine cancer Family/Other Mental health disorder Social History Housing: Apartment Alcohol intake: never Patient Tobacco Use Status: Never used Tobacco e-Cigarette/Vaping Use: Never Used Second Hand Smoke Exposure: No service: No Current occupational status: unemployed and disabled Cognitive needs: Yes Hearing needs: No Vision needs: Yes Assessment & Plan Assessment & Plan (1) Diabetes mellitus: Code(s): E11.9 - Type 2 diabetes mellitus without complications Category: Medical Qualifiers: Diabetes mellitus complication status: without complication Diabetes mellitus assistant terminal manager insulin use: without mcfp use Diabetes mellitus type: type 2 Qualified Code(s): E11.9 - Type 2 diabetes mellitus without complications Plan: current wt: 63 kg ( 01/12 ), 62 kg (02/2025) est kcal needs as per MSJ: 1300 est protein needs as per 1 g/kg BW: 60 est fluid needs as per 30 ml/kg BW: 1900 Recommended fiber > 12 g /day and gradually increase up to 25-28 g /day or as tolerated Na rec: less than 2300 mg/d unless otherwise specified by MD Nutrition topics discussed : Reviewed (R), Pt verbalized understanding (V) , not applicable (N/A) R, : Healthy Plate Method Concept: (add a chicken to the rice or mixed vegetables to the rice mixture, reducing on amount of starches consumed at a meal, when making soups include pumpkin, carrots some of the lower carbs vegetables known to patient, working on reducing total carbs at a meal to less than 60 g, reviewed lower sugar beverages including milk and alternatives, discussed making desserts with lower in sugar and higher fiber Monitor blood glucose by alternating between fasting and 2 hours after a meal R, V, N/A: Carbohydrates: food sources of carbohydrates, relationship of carbohydrates to blood glucose, fatty liver GI health. Recommended total amount of carbohydrates per meals and snack. Differences between simple carbohydrates and complex carbohydrates R, : Lean protein foods including vegan , vegetarian sources of protein. Benefits of protein (including but not limited to healing, nutritional value , benefits in weight loss, glucose control R, V, N/A: Fats : Source of fats, benefits of fats. Difference between saturated and unsaturated fats. Saturated fats and its contribution to inflammation R, V, N/A: Fiber: food sources and role of fiber in the diet (including but not limited to its role as a prebiotic, benefits in constipation, role in IBS , role in glucose control and cholesterol level) R, : Hydration: role of hydration and prevention of dehydration or over hydration. Foods and water content. R, V, N/A: Vitamins and Minerals in foods and supplements R, V, N/A: Interpreting food labels, including serving size, macronutrients, vitamins, minerals, allergens, ingredient list , % daily value Hydrations : Discussed , choosing low sugar beverages, broth, vegetables Coding Level of Care Code Nutr Indiv Subseq (84322) Diagnoses Type 2 diabetes mellitus without complication, without long-term current use of insulin E11.9 Diabetes mellitus complication status: without complication Diabetes mellitus assistant terminal manager insulin use: without mcfp use Diabetes mellitus type: type 2 Time Spent (min) 25
[2025-02-23 13:12] VITALS: BMI 28.7
--- OUTSIDE RECORDS SUMMARY | 2025-02-23 15:59 | XMS_ITS | Clinical Summary ---
Author Organization [facility] Address [address] [facility] [address] [place] [address] Phone Care Team Providers Care Specialized Developer Name Role Phone Chani Salguero MD Primary Care Provider [phone] Allergies No known active allergies Medications aspirin [...] A DAY 1 Active BD Pen Needle Mroena 2nd Gen 32G X 4 MM misc [...] patient's age to complete this topic Insurance [facility] ([id number]) [facility] ([id number]) Care Teams Specialized Developer Relationship Specialty Start Date End Date Chani Salguero MD [address] [place], [place] PCP - General 04/30/20
--- OUTSIDE RECORDS SUMMARY | 2025-02-23 15:59 | XMS_ITS | Encounter Summary ---
Author Organization [employer] Address [address] [facility] [address] [place] [address] Care Team Providers Care Manager Statistical Name Role Phone Paola Montenegro MD Primary Care Provider [phone] Encounter Details Date Type Department Care Team ([facility] st Contact Info) Description 03/21/2022 Abstract [facility] ADULT DENTAL [address] [place], [place] [id number] Frandy Stone DDS [address] [place], [place] [id number] Social History Tobacco Use Types Packs/Day Years [...] on filedocumented in this encounter Care Teams Manager Statistical Relationship Specialty Start Date End Date Paola Montenegro MD [address] [place], [place] [phone] PCP - General Family Medicine 06/06/15 08/24/23 documented as of this encounter
--- OUTSIDE RECORDS SUMMARY | 2025-02-23 15:59 | XMS_ITS | Clinical Summary ---
Author Organization [employer] Address [address] [facility] [address] [place] [address] Care Team Providers Care Public Health Assistant Name Role Phone Unavailable Primary Care Provider [...] patient's age to complete this topic Insurance [place] [id number]
--- OUTSIDE RECORDS SUMMARY | 2025-02-23 15:59 | XMS_ITS | Encounter Summary ---
Author Organization [employer] Address [address] [facility] [address] [place] [address] Care Team Providers Care Seed Cutter Name Role Phone Paola Montenegro MD Primary Care Provider [phone] Encounter Details Date Type Department Care Team ([facility] st Contact Info) Description 03/12/2022 Abstract [facility] ADULT DENTAL [address] [place] [address] Dental, Provider, DDS Social History Tobacco Use [...] on filedocumented in this encounter Care Teams Seed Cutter Relationship Specialty Start Date End Date Paola Montenegro MD [address] [place] [id number] PCP - General Family Medicine 06/06/15 08/24/23 documented as of this encounter
--- OUTSIDE RECORDS SUMMARY | 2025-02-23 15:59 | XMS_ITS | Encounter Summary ---
Author Organization [employer] Address [address] [facility] [address] [place] [address] Care Team Providers Care Business Process Associate Name Role Phone Paola Montenegro MD Primary Care Provider Encounter Details Date Type Department Care Team (Latest Contact Info) Description 07/18/2020 Abstract [facility] CONVERSIONS Dental, Provider, DDS Social [...] on filedocumented in this encounter Care Teams Business Process Associate Relationship Specialty Start Date End Date Paola Montenegro MD [address] [place] [id number] PCP - General Family Medicine 06/06/15 08/24/23 documented as of this encounter
--- OUTSIDE RECORDS SUMMARY | 2025-02-23 15:59 | XMS_ITS | Encounter Summary ---
Author Organization [employer] Address [address] [facility] [address] [place] [address] Care Team Providers Care Lithographic Plate Maker Apprentice Name Role Phone Paola Montenegro MD Primary Care Provider [phone] Encounter Details Date Type Department Care Team (Latest Contact Info) Description 11/21/2021 Abstract [facility] CONVERSIONS Dental, Provider, DDS Social History [...] on filedocumented in this encounter Care Teams Lithographic Plate Maker Apprentice Relationship Specialty Start Date End Date Paola Montenegro MD [address] [place] [id number] PCP - General Family Medicine 06/06/15 08/24/23 documented as of this encounter
== END 2025-02-23 13:44 | disposition home or self-care (01) ==
LOC: HO.ENCR 13:06
PROVIDERS: PCP Internal Medicine; Visit Provider Dietitian, Registered
DX: E11.9 Type 2 diabetes mellitus without complications (principal)

== ENCOUNTER → 2025-02-23 13:05 | Outpatient (BNVA) | payer OTHER, SELFPAY | PROVIDERS: PCP Internal Medicine; Visit Provider Dietitian, Registered | DX: E11.9 Type 2 diabetes mellitus without complications (principal) | CPT/HCPCS: 97803 ==

== ENCOUNTER 2025-03-07 15:15 | Outpatient (AMB) | payer OTHER, SELFPAY ==
--- NOTE | 2025-03-07 15:34 | A.OFFVIS_ITS ---
Intake Visit Reasons: Renal cysts Intake Note: New patient presents today for initial visit for renal cysts Urology Medication:Vitamin B12 Blood Thinner:Aspirin Antibiotic Allergies:None Concrete Boom Operator Required: Yes Allergies No Known Allergies (No Known Allergies*) Allergy (Verified 03/07/25 21:26) Medication List - Last Reconciled 03/07/25 by TWILA Hercules acetaminophen 1,000 mg (2 x 500 mg) PO Q8H PRN albuterol sulfate 90 mcg/actuation 2 puffs PO Q4H PRN 90 days albuterol sulfate 90 mcg/actuation (Ventolin HFA) 2 puffs inhalation Q4-6H PRN 30 days alcohol swabs 1 pad topical BID 30 days aspirin 81 mg PO DAILY 90 days blood sugar diagnostic As directed blood sugar diagnostic (OneTouch Ultra Test strips) DIRECTED TO TEST BLOOD SUGAR THREE TIMES DAILY blood sugar diagnostic (FreeStyle Lite Strips) As directed three times a day blood-glucose meter (OneTouch Ultra2 Meter kit) test 3xs per day blood-glucose meter (FreeStyle Lite Meter kit) As directed 3x/day blood-glucose sensor (FreeStyle Adi 3 Sensor device) As directed blood-glucose,manager merchandising,cont (FreeStyle Adi 3 [place]) As directed calcium carbonate-vitamin D3 600 mg-10 mcg (400 unit) 1 tab PO DAILY 90 days clotrimazole 1% 1 appl topical BID 4 weeks clotrimazole 2% 1 appful vaginal BEDTIME 3 days cranberry fruit 400 mg PO TID 90 days cyanocobalamin (vitamin B-12) 1,000 mcg PO DAILY 90 days [diabetic shoes with inserts As directed] docusate calcium 240 mg PO DAILY PRN 30 days donepezil 10 mg PO BEDTIME dulaglutide (Trulicity) 3 mg (0.5 mL) subcut QWEEK 90 days empagliflozin (Jardiance) 25 mg PO QAM etodolac ER 600 mg PO DAILY 7 days fluticasone propion-salmeterol 113-14 mcg/actuation 1 inh PO BID 30 days hydrocortisone 2.5% 1 appl topical TID PRN 90 days incontinence pad, liner, disp Use 1 pad prn 6 times per day insulin glargine U-300 conc (Toujeo SoloStar U-300 Insulin) 30 units (0.1 mL) subcut BEDTIME 90 days ipratropium bromide 2 sprays intranasal BID 90 days lancets (FreeStyle Lancets) Three times a day latex gloves (Latex Gloves, Medium) As directed lidocaine 5% 1 patch topical DAILY 30 days lisinopril 2.5 mg PO DAILY 90 days metformin 1,000 mg PO BID 90 days methocarbamol 500 mg PO QID 5 days metoclopramide HCl (Reglan) 5 mg PO Q6H miscellaneous medical supply 1 ea miscellaneous .once a day 30 days montelukast 10 mg PO DAILY 90 days nystatin 1 appl topical BID PRN 30 days omega-3 fatty acids-fish oil 340-1,000 mg 1 cap PO DAILY omeprazole 40 mg PO DAILY ondansetron 8 mg PO Q8H oxycodone-acetaminophen 5-325 mg (Percocet) 1 tab PO Q8H PRN 7 days pen needle, diabetic subcut daily; psyllium husk (Metamucil) 1 tbsp PO BID 14 days rosuvastatin 40 mg PO DAILY 90 days [shoe inserts As directed] Shower Chair As directed sucralfate (Carafate) 1 g PO BID 30 days terconazole 0.8% 1 appful vaginal BEDTIME 3 days tizanidine 2 mg PO TID PRN 90 days underpads (Bed Underpads) Use 3 to 4 underpads daily prn venlafaxine ER 75 mg PO DAILY 90 days vitamin A 2 caps PO DAILY 90 days vitamin E (dl, acetate) 180 mg PO DAILY 90 days [wipes As directed] HPI Comments Details: Anamaria is a very pleasant 79-year-old [place]-speaking female patient of Dr. Bourne who was accompanied by her daughter at today's office visit. She has a past medical history of hyperlipidemia, hypertension, asthma, fibromyalgia, type 2 diabetes, and vitamin B12 deficiency. She presents to the office today as a new patient for renal cyst and nephrolithiasis. In discussion with the patient and her daughter today she reports having seeked follow-up care with her PCP for ongoing abdominal discomfort and nausea she has been experiencing at which time a renal ultrasound was ordered and performed. These results were reviewed and communicated with the patient today. 03/14 bilateral kidneys are normal in size and echotexture. 2 mm nonobstructing right renal calculus. No hydronephrosis noted bilaterally. Simple cyst noted bilaterally. She denies any previous history of nephrolithiasis and or surgical intervention for nephrolithiasis. We did discussed renal Cyst as well as nephrolithiasis. We did discussed further interventions and risks and benefits of these interventions. In office urinalysis results reviewed with the patient today. She denies urinary urgency, urinary frequency, incontinence, nocturia, hematuria, dysuria, foul smelling urine, changes to urinary stream, flank pain, fever, and or chills. She is happy with her current voiding parameters. All questions were answered to the best of my ability. She otherwise offers no other issues or concerns at this time. [facility] Medical History Skin lesion Mixed hyperlipidemia Essential hypertension Left knee pain Left hip pain Left foot pain Unsteady gait Low back pain Spondylosis of lumbar region without myelopathy or radiculopathy Hypovitaminosis D Nausea Moderate asthma Fibromyalgia Diabetes mellitus B12 deficiency Surgical History History of right oophorectomy History of tubal ligation Family History Father CVD (cardiovascular disease) Diabetes Mother Diabetes Hypertension CVD (cardiovascular disease) Sister Colon cancer Breast cancer Blind Uterine cancer Family/Other Mental health disorder Social History Housing: Apartment Alcohol intake: never Patient Tobacco Use Status: Never used Tobacco e-Cigarette/Vaping Use: Never Used Second Hand Smoke Exposure: No service: No Current occupational status: unemployed and disabled Cognitive needs: Yes Hearing needs: No Vision needs: Yes Review of Systems Const All systems reviewed & are unremarkable except as noted in HPI and below Physical Exam Const General: cooperative, comfortable, no acute distress, well developed, alert and awake Orientation/consciousness: patient oriented x3 Limitations: wheelchair HEENT Head: Yes normal to inspection, Yes normocephalic and Yes atraumatic Ears: hearing grossly normal bilaterally Eyes General: appearance normal, both eyes and all related structures Neck Neck: Yes normal visual inspection and Yes trachea midline Chest Chest palpation & inspection: normal inspection of the chest Resp Effort & Inspection: normal respiratory effort and able to speak in complete sentences Cardio Rate: regular rate GI Inspection: Yes normal to inspection General: Yes no CVA tenderness Back/Spine/Pelvis Back: no CVA tenderness Skin General skin exam: no rashes or lesions noted Neuro General: patient oriented x3 Extrem General: Yes normal to inspection Psych Appearance: grossly normal and well kempt Mental Status: mental status grossly normal Speech and movement: Normal speech and movement present and Clear speech present Affect: normal affect Attitude: cooperative Thought process: Normal thought process present Thought content: Normal thought content present Insight: Fair insight present (Psych) Judgement: Fair judgement present (Psych) Results Reviewed Results Reviewed: Date of Service: 02/22/25 Procedure(s): US renal BI Findings: Right kidney is normal in size, echogenicity and morphology, 9.9 cm in length. 2 mm calculus in the midpole, simple cyst 1.2 cm in the midpole. No hydronephrosis. Left kidney is normal in size, echogenicity and morphology, 9.1 cm in length. No calculus or hydronephrosis. Simple cysts noted, the dominant cyst is 4.4 cm in the upper pole. Limited color Doppler demonstrates unremarkable bilateral blood flow. Impression: 1. Nonobstructing right nephrolithiasis. 2. Bilateral renal benign cysts. Assessment & Plan Assessment & Plan (1) Renal cyst: Code(s): N28.1 - Cyst of kidney, acquired Category: Medical (2) Nephrolithiasis: Code(s): N20.0 - Calculus of kidney Category: Medical Plan In office urinalysis results reviewed with the patient today; as noted above. Most recent renal imaging results reviewed with the patient today; as noted above. All questions were answered. We did discussed renal cyst as well as nephrolithiasis. We did discussed importance of management and diabetes for improvement in urological health as well as overall health and well-being. She currently denies any bothersome urinary issues. She reports be happy with current voiding parameters. Will continue with surveillance monitoring. We discussed adding 1 oz of lemon juice to water daily. Will obtain renal ultrasound in 6 months. Follow-up in 6 months with imaging; or sooner with any issues, concerns, and or questions. Orders: Orders US renal BI 6 Months N20.0 - Calculus of kidney AMB Urinalysis Automated Today N30.00 - Acute cystitis without hematuria, N39.41 - Urge incontinence Coding Level of Care Code New Pt Level 3 (32473) Diagnoses Renal cyst N28.1 Nephrolithiasis N20.0
== END 2025-03-07 16:22 | disposition home or self-care (01) ==
LOC: HO.HUSH 15:16
PROVIDERS: PCP Internal Medicine; Visit Provider Nurse Practitioner Family
DX: N30.00 Acute cystitis without hematuria (principal); N39.41 Urge incontinence
CPT/HCPCS: 99203

== ENCOUNTER → 2025-03-07 15:15 | Outpatient (BNVA) | payer OTHER, SELFPAY | PROVIDERS: PCP Internal Medicine; Visit Provider Nurse Practitioner Family | DX: N28.1 Cyst of kidney, acquired (principal); N20.0 Calculus of kidney; N30.00 Acute cystitis without hematuria; N39.41 Urge incontinence | CPT/HCPCS: 81003; 99202 ==